=== PATIENT | male | born 1955 | race African-American/Black ===

== ENCOUNTER 2016-08-20 08:32 | Emergency (ER) | payer MEDICAID ==
[~2016-08-20] VITALS: Ht 160 cm; Wt 68.0 kg
[2016-08-20 10:05] VITALS: BP 146/56
[2016-08-20] MEDS: ONDANSETRON HCL 4 MG/2 ML VIAL IM ONE (10:40)
[2016-08-20] MEDS: HYDROmorphone HCL 2 MG/ML VL IM ONE (10:40)
[2016-08-20] MEDS: cefTRIAXone SOD 1,000 MG VL IM ONE (10:40)
== END 2016-08-20 10:56 | disposition home or self-care (01) ==
LOC: ER 08:32
DX: L02.212 Cutaneous abscess of back [any part, except buttock and flank] (principal); E11.9 Type 2 diabetes mellitus without complications; Z79.4 Long term (current) use of insulin; I10 Essential (primary) hypertension
CPT/HCPCS: 10060; 82962; 87077; 87186; 87205; 96372; 99284; J0696; J1170; J2405

== ENCOUNTER 2016-08-22 08:04 | Emergency (ER) | payer MEDICAID ==
[~2016-08-22] VITALS: Ht 160 cm; Wt 68.0 kg
[2016-08-22 08:14] VITALS: BP 135/60
== END 2016-08-22 09:58 | disposition home or self-care (01) ==
LOC: ER 08:06
DX: L02.31 Cutaneous abscess of buttock (principal); Z48.01 Encounter for change or removal of surgical wound dressing; E11.9 Type 2 diabetes mellitus without complications; I10 Essential (primary) hypertension

== ENCOUNTER 2017-01-17 20:15 | Emergency (ER) | payer MEDICAID, OTHER ==
[~2017-01-17] VITALS: Ht 160 cm; Wt 67.1 kg
[~2017-01-17 20:15] MED LIST: ASPI81CH43 PO; ATOR20TA50 PO; CAR3125T PO; HYDR-2652 PO; INSLANTI SC; ISOS30TA4 PO; LOSA50TA6 PO; TERA2CAP45 PO
[2017-01-17 20:26] VITALS: BP 167/79
[2017-01-17 21:19] LABS: Basophils # (auto) 0 uL; Basophils % (auto) 0.5 % (0.0-2.0); CONDITION Y; Eosinophils # (auto) 0.1 uL; Eosinophils % (auto) 1.2 % (0.0-7.0); Hematocrit 28.1 % (41.0-53.0); Hemoglobin 9.9 g/dL (13.5-17.5); Lymphocytes # (auto) 1.1 uL; Lymphocytes % (auto) 16.3 % (10.0-50.0); Mean Corpuscular Hemoglobin 32.9 pg (28.0-32.0); Mean Corpuscular Hgb Conc. 35.2 g/dL (32.0-36.0); Mean Corpuscular Volume 93.6 fL (80.0-100.0); Mean Platelet Volume 9.2 fL (7.4-10.4); Monocytes # (auto) 0.6 uL; Monocytes % (auto) 8.4 % (0.0-12.0); Neutrophils # (auto) 4.9 uL; Neutrophils % (auto) 73.6 % (37.0-80.0); Platelet Count (auto) 223 10^3/uL (140-450); Red Cell Distribution Width 13.7 % (11.6-16.0); White Blood Cell 6.6 10^3/uL (4.4-10.8)
[2017-01-17 21:23] LABS: Partial Thromboplastin Time 32.9 sec (22.64-33.71); Prothrombin Time 10.9 sec (9.37-12.3)
[2017-01-17 21:33] LABS: Albumin 1.5 g/dL (3.4-5.0); Bilirubin, Total 0.2 mg/dL (0.2-1.0); Calcium 6.1 mg/dL (8.5-10.1); Potassium 3.7 mmol/L (3.5-5.1); Total Protein 5.1 g/dL (6.4-8.2)
== END 2017-01-18 00:33 | disposition left against medical advice (07) ==
LOC: ER 20:18
DX: I10 Essential (primary) hypertension (principal); Z53.21 Procedure and treatment not carried out due to patient leaving prior to being seen by health care provider
CPT/HCPCS: 36415; 71020; 80053; 84484; 85025; 85610; 85730; 93005

== ENCOUNTER 2017-01-20 16:04 | Emergency (ER) | payer OTHER ==
[~2017-01-20] VITALS: Ht 160 cm; Wt 63.5 kg
[2017-01-20 16:22] VITALS: BP 147/70
== END 2017-01-20 20:00 | disposition left against medical advice (07) ==
LOC: ER 16:16
DX: T83.098A Other mechanical complication of other urinary catheter, initial encounter (principal); Z53.21 Procedure and treatment not carried out due to patient leaving prior to being seen by health care provider

== ENCOUNTER 2017-07-10 14:17 | Emergency (ER) | payer MEDICARE, MEDICAID ==
[~2017-07-10] VITALS: Ht 160 cm; Wt 67.1 kg
[~2017-07-10 14:17] MED LIST changes: -HYDR-2652 PO; +HYDR50TA15 PO
[2017-07-10 14:42] VITALS: BP 156/70
[2017-07-10] MEDS ORDERED: TETRACAINE HCL 0.5% OPTH(EYE) SOLN 4ML EACHEYE ONE (16:30)
[2017-07-10] MEDS ORDERED: FLUORESCEIN SOD 1 MG TEST STRIP OP ONE (16:30)
== END 2017-07-10 16:49 | disposition home or self-care (01) ==
LOC: ER 14:17
DX: H11.31 Conjunctival hemorrhage, right eye (principal); H53.8 Other visual disturbances; E11.9 Type 2 diabetes mellitus without complications; I12.0 Hypertensive chronic kidney disease with stage 5 chronic kidney disease or end stage renal disease; N18.6 End stage renal disease; Z79.2 Long term (current) use of antibiotics; Z79.4 Long term (current) use of insulin; Z79.899 Other long term (current) drug therapy
CPT/HCPCS: 70450; 82962

== ENCOUNTER 2017-09-08 18:45 | Inpatient (IN) | payer MEDICARE, MEDICAID ==
[~2017-09-08] VITALS: Ht 160 cm; Wt 69.2 kg
[2017-09-08 19:23] LABS: Basophils # (auto) 0.1 uL; Basophils % (auto) 0.9 % (0.0-2.0); Eosinophils # (auto) 0.1 uL; Eosinophils % (auto) 0.8 % (0.0-7.0); Hematocrit 34.4 % (41.0-53.0); Hemoglobin 11.5 g/dL (13.5-17.5); Lymphocytes # (auto) 1.4 uL; Lymphocytes % (auto) 20.4 % (10.0-50.0); Mean Corpuscular Hemoglobin 32.8 pg (28.0-32.0); Mean Corpuscular Hgb Conc. 33.3 g/dL (32.0-36.0); Mean Corpuscular Volume 98.4 fL (80.0-100.0); Monocytes # (auto) 0.5 uL; Monocytes % (auto) 8.1 % (0.0-12.0); Neutrophils # (auto) 4.7 uL; Neutrophils % (auto) 69.8 % (37.0-80.0); Nucleated Red Blood Cells % 0.1 %; Platelet Count (auto) 246 10^3/uL (140-450); Red Cell Distribution Width 14.3 % (11.8-14.3); White Blood Cell 6.7 10^3/uL (4.4-10.8)
[2017-09-08 19:36] LABS: Albumin 2.4 g/dL (3.4-5.0); BUN/Creatinine Ratio 6.9; Calcium 6.4 mg/dL (8.5-10.1); Magnesium 2.1 mg/dL (1.6-2.6); Potassium 4.4 mmol/L (3.5-5.1)
[2017-09-08 19:37] LABS: Partial Thromboplastin Time 30.4 sec (22.64-33.71); Prothrombin Time 10.9 sec (9.37-12.3)
[2017-09-08 19:41] LABS: Bilirubin, Total 0.3 mg/dL (0.2-1.0); Total Protein 6.2 g/dL (6.4-8.2)
[2017-09-08 21:37] LABS: Urine Bacteria NONE SEEN /hpf (None Seen); Urine Blood TRACE /uL (Negative); Urine Specific Gravity 1.016 (1.001-1.035); Urine Sperm PRESENT /hpf (None Seen); Urine WBC 2 /hpf (0 - 3)
[2017-09-09] MEDS ORDERED: NITROGLYCERIN 0.4 MG SL TAB SL PRN (01:30)
[2017-09-09] MEDS ORDERED: MORPHINE SULFATE 4 MG/ML SYR/VIAL IV PRN (01:30)
[2017-09-09] MEDS ORDERED: hydrALAZINE HCL 25 MG TAB PO PRN (01:30)
[2017-09-09] MEDS ORDERED: ONDANSETRON HCL 4 MG/2 ML VIAL IV PRN (01:30)
[2017-09-09 03:10] VITALS: BP 192/90
[2017-09-09] MEDS: HYDROcodone-ACET 5/325MG TAB PO PRN ×2 (04:37→11:25)
[2017-09-09 07:51] LABS: Basophils # (auto) 0.1 uL; Basophils % (auto) 0.9 % (0.0-2.0); Eosinophils # (auto) 0.1 uL; Eosinophils % (auto) 0.9 % (0.0-7.0); Hematocrit 31.2 % (41.0-53.0); Hemoglobin 10.6 g/dL (13.5-17.5); Lymphocytes # (auto) 1.6 uL; Lymphocytes % (auto) 25.1 % (10.0-50.0); Mean Corpuscular Hemoglobin 33.3 pg (28.0-32.0); Mean Corpuscular Hgb Conc. 33.9 g/dL (32.0-36.0); Mean Corpuscular Volume 98.3 fL (80.0-100.0); Monocytes # (auto) 0.6 uL; Monocytes % (auto) 9.4 % (0.0-12.0); Neutrophils % (auto) 63.7 % (37.0-80.0); Nucleated Red Blood Cells % 0.1 %; Platelet Count (auto) 217 10^3/uL (140-450); Red Blood Cells 3.17 10^6/uL (4.5-5.90); Red Cell Distribution Width 14.3 % (11.8-14.3); White Blood Cell 6.2 10^3/uL (4.4-10.8)
[2017-09-09 08:08] LABS: BUN/Creatinine Ratio 6.5; Calcium 6.3 mg/dL (8.5-10.1); Potassium 4.6 mmol/L (3.5-5.1)
[2017-09-09 09:00] VITALS: BP 111/59
[2017-09-09] MEDS: ASPirin-EC 81 mg tab PO SCH (09:23)
[2017-09-09] MEDS: SEVELAMER 800 MG TAB PO SCH ×3 (09:23→17:59)
[2017-09-09] MEDS: ISOSORBIDE MONONITRATE 60 MG TAB PO SCH (09:24)
[2017-09-09] MEDS: CARVEDILOL 3.125 MG TAB PO SCH ×2 (09:24→22:26)
[2017-09-09] MEDS ORDERED: SODIUM CHL 0.9% 1000 ML BAG XX ONE (11:15)
[2017-09-09] MEDS ORDERED: EPOETIN ALFA 10,000 UNIT/1 ML VIAL IV ONE (11:15)
[2017-09-09 13:00] VITALS: BP 146/72
[2017-09-09 17:01] VITALS: BP 138/73
[2017-09-09] MEDS: MULTIPLE VITAMIN TAB PO SCH (17:59)
[2017-09-09 22:00] VITALS: BP 151/74
[2017-09-09] MEDS: ATORVASTATIN 20 MG TAB PO SCH (22:25)
[2017-09-10] MEDS: HYDROcodone-ACET 5/325MG TAB PO PRN (01:07)
[2017-09-10 05:00] VITALS: BP 142/73
[2017-09-10 06:41] LABS: Basophils # (auto) 0.1 uL; Basophils % (auto) 0.6 % (0.0-2.0); Eosinophils # (auto) 0.1 uL; Eosinophils % (auto) 1.1 % (0.0-7.0); Hematocrit 35.3 % (41.0-53.0); Hemoglobin 11.8 g/dL (13.5-17.5); Lymphocytes # (auto) 1.7 uL; Lymphocytes % (auto) 18.9 % (10.0-50.0); Mean Corpuscular Hemoglobin 33.5 pg (28.0-32.0); Mean Corpuscular Hgb Conc. 33.4 g/dL (32.0-36.0); Mean Corpuscular Volume 100.4 fL (80.0-100.0); Monocytes # (auto) 0.8 uL; Monocytes % (auto) 8.8 % (0.0-12.0); Neutrophils # (auto) 6.2 uL; Neutrophils % (auto) 70.6 % (37.0-80.0); Nucleated Red Blood Cells % 0.1 %; Platelet Count (auto) 253 10^3/uL (140-450); Red Blood Cells 3.51 10^6/uL (4.5-5.90); Red Cell Distribution Width 14.9 % (11.8-14.3); White Blood Cell 8.8 10^3/uL (4.4-10.8)
[2017-09-10 06:48] LABS: BUN/Creatinine Ratio 6.4; Calcium 6.7 mg/dL (8.5-10.1); Phosphorus 7.3 mg/dL (2.5-4.90); Potassium 5.2 mmol/L (3.5-5.1)
[2017-09-10] MEDS: ISOSORBIDE MONONITRATE 60 MG TAB PO SCH (08:55)
[2017-09-10] MEDS: ASPirin-EC 81 mg tab PO SCH (08:55)
[2017-09-10] MEDS: CARVEDILOL 3.125 MG TAB PO SCH ×2 (08:56→23:12)
[2017-09-10] MEDS: SEVELAMER 800 MG TAB PO SCH ×3 (08:56→17:36)
[2017-09-10 09:00] VITALS: BP 191/80
[2017-09-10] MEDS ORDERED: EPOETIN ALFA 10,000 UNIT/1 ML VIAL IV ONE (11:00)
[2017-09-10] MEDS ORDERED: SODIUM CHL 0.9% 1000 ML BAG XX ONE (11:00)
[2017-09-10 13:00] VITALS: BP 153/77
[2017-09-10] MEDS ORDERED: HEPARIN 1,000 UNITS/ml 1ML VIAL IV ONE ×2 (16:45)
[2017-09-10 17:00] VITALS: BP 183/81
[2017-09-10] MEDS: MULTIPLE VITAMIN TAB PO SCH (17:36)
[2017-09-10 22:00] VITALS: BP 147/71
[2017-09-10] MEDS: ATORVASTATIN 20 MG TAB PO SCH (23:11)
[2017-09-10] MEDS: cloNIDine HCL 0.1 MG TAB PO PRN (23:11)
[2017-09-11] MEDS: ACETAMINOPHEN 500 MG TAB PO PRN ×2 (01:46→21:43)
[2017-09-11 05:33] VITALS: BP 126/72
[2017-09-11 05:57] LABS: Basophils # (auto) 0.1 uL; Eosinophils # (auto) 0 uL; Eosinophils % (auto) 0.5 % (0.0-7.0); Hematocrit 30.4 % (41.0-53.0); Hemoglobin 10.3 g/dL (13.5-17.5); Lymphocytes # (auto) 1.8 uL; Lymphocytes % (auto) 25.3 % (10.0-50.0); Mean Corpuscular Hemoglobin 33.3 pg (28.0-32.0); Mean Corpuscular Hgb Conc. 33.9 g/dL (32.0-36.0); Mean Corpuscular Volume 98.3 fL (80.0-100.0); Monocytes # (auto) 0.6 uL; Monocytes % (auto) 8.1 % (0.0-12.0); Neutrophils # (auto) 4.6 uL; Neutrophils % (auto) 65.1 % (37.0-80.0); Nucleated Red Blood Cells % 0.2 %; Platelet Count (auto) 216 10^3/uL (140-450); Red Cell Distribution Width 14.2 % (11.8-14.3); White Blood Cell 7.1 10^3/uL (4.4-10.8)
[2017-09-11] MEDS: hydrALAZINE HCL 25 MG TAB PO SCH ×3 (06:00→22:00)
[2017-09-11 06:08] LABS: Calcium 6.7 mg/dL (8.5-10.1); Potassium 4.5 mmol/L (3.5-5.1)
[2017-09-11 06:10] LABS: BUN/Creatinine Ratio 5.3
[2017-09-11 08:00] VITALS: BP 147/70
[2017-09-11 08:40] VITALS: BP 147/70
[2017-09-11] MEDS: SEVELAMER 800 MG TAB PO SCH ×3 (09:04→16:36)
[2017-09-11] MEDS: CARVEDILOL 3.125 MG TAB PO SCH ×2 (09:05→21:44)
[2017-09-11] MEDS: ASPirin-EC 81 mg tab PO SCH (09:05)
[2017-09-11] MEDS: ISOSORBIDE MONONITRATE 60 MG TAB PO SCH (09:05)
[2017-09-11 11:52] VITALS: BP 131/68
[2017-09-11] MEDS: MULTIPLE VITAMIN TAB PO SCH (16:36)
[2017-09-11 16:37] VITALS: BP 142/63
[2017-09-11 21:38] VITALS: BP 171/56
[2017-09-11] MEDS: cloNIDine HCL 0.1 MG TAB PO PRN (21:43)
[2017-09-11] MEDS: ATORVASTATIN 20 MG TAB PO SCH (21:44)
[2017-09-12 05:00] VITALS: BP 120/59
[2017-09-12] MEDS: hydrALAZINE HCL 25 MG TAB PO SCH ×2 (05:42→14:00)
[2017-09-12 07:05] LABS: Basophils # (auto) 0.1 uL; Basophils % (auto) 0.9 % (0.0-2.0); Eosinophils # (auto) 0.1 uL; Hematocrit 31.9 % (41.0-53.0); Hemoglobin 10.7 g/dL (13.5-17.5); Lymphocytes % (auto) 26.4 % (10.0-50.0); Mean Corpuscular Hgb Conc. 33.5 g/dL (32.0-36.0); Mean Corpuscular Volume 98.6 fL (80.0-100.0); Monocytes # (auto) 0.7 uL; Neutrophils # (auto) 4.6 uL; Neutrophils % (auto) 61.7 % (37.0-80.0); Nucleated Red Blood Cells % 0.1 %; Platelet Count (auto) 220 10^3/uL (140-450); Red Blood Cells 3.24 10^6/uL (4.5-5.90); Red Cell Distribution Width 14.2 % (11.8-14.3); White Blood Cell 7.5 10^3/uL (4.4-10.8)
[2017-09-12 07:32] LABS: BUN/Creatinine Ratio 6.2; Calcium 6.6 mg/dL (8.5-10.1)
[2017-09-12 08:00] VITALS: BP 120/59
[2017-09-12] MEDS: SEVELAMER 800 MG TAB PO SCH ×2 (08:00→12:00)
[2017-09-12] MEDS ORDERED: SODIUM CHL 0.9% 1000 ML BAG XX ONE (08:45)
[2017-09-12 08:57] VITALS: BP 100/54
[2017-09-12] MEDS: ISOSORBIDE MONONITRATE 60 MG TAB PO SCH (10:00)
[2017-09-12] MEDS: CARVEDILOL 3.125 MG TAB PO SCH (10:00)
[2017-09-12] MEDS: ASPirin-EC 81 mg tab PO SCH (10:00)
[2017-09-12 12:40] VITALS: BP 135/62
[2017-09-12 14:32] VITALS: BP 135/62
[2017-09-12] MEDS ORDERED: PRO-STAT 64 30ML PO SCH (22:00)
== END 2017-09-12 16:42 | disposition home or self-care (01) | DRG 280 ==
LOC: EDBD 18:45 → ER 18:46 → TELE 18:47 → TELE-WESTW 09-09 03:05
PROVIDERS: ADMIT Nurse Practitioner Family; ATTEND Family Medicine
PROC: 5A1D70Z Performance of Urinary Filtration, Intermittent, Less than 6 Hours Per Day (ICD-10-PCS; principal; 2017-09-10)
PROC: 5A1D70Z Performance of Urinary Filtration, Intermittent, Less than 6 Hours Per Day (ICD-10-PCS; 2017-09-12)
DX: I13.2 Hypertensive heart and chronic kidney disease with heart failure and with stage 5 chronic kidney disease, or end stage renal disease (principal); I21.A1 Myocardial infarction type 2; N18.6 End stage renal disease; E11.22 Type 2 diabetes mellitus with diabetic chronic kidney disease; E44.0 Moderate protein-calorie malnutrition; I50.30 Unspecified diastolic (congestive) heart failure; E11.65 Type 2 diabetes mellitus with hyperglycemia; I12.0 Hypertensive chronic kidney disease with stage 5 chronic kidney disease or end stage renal disease; D63.8 Anemia in other chronic diseases classified elsewhere; E78.5 Hyperlipidemia, unspecified; F41.9 Anxiety disorder, unspecified; I25.10 Atherosclerotic heart disease of native coronary artery without angina pectoris; Z99.2 Dependence on renal dialysis; Z79.4 Long term (current) use of insulin; Z79.82 Long term (current) use of aspirin; Z79.899 Other long term (current) drug therapy; Z82.49 Family history of ischemic heart disease and other diseases of the circulatory system; Z83.3 Family history of diabetes mellitus; Z68.27 Body mass index [BMI] 27.0-27.9, adult
CPT/HCPCS: 36415; 71045; 80048; 80053; 81001; 82550; 82553; 82962; 83036; 83540; 83735; 83880; 84100; 84484; 85025; 85379; 85610; 85730; 90935; 93005; 93306; J0885

== ENCOUNTER → 2017-11-04 | Outpatient (CLI) | payer MEDICARE, MEDICAID ==
[~2017-11-04] MED LIST changes: -HYDR50TA15 PO; -LOSA50TA6 PO; -TERA2CAP45 PO
[2017-11-04 08:04] LABS: Basophils # (auto) 0.1 uL; Basophils % (auto) 0.9 % (0.0-2.0); Eosinophils # (auto) 0.1 uL; Eosinophils % (auto) 0.9 % (0.0-7.0); Hematocrit 36.8 % (41.0-53.0); Hemoglobin 12.1 g/dL (13.5-17.5); Lymphocytes # (auto) 1.4 uL; Lymphocytes % (auto) 24.5 % (10.0-50.0); Mean Corpuscular Hemoglobin 31.4 pg (28.0-32.0); Mean Corpuscular Hgb Conc. 32.9 g/dL (32.0-36.0); Mean Corpuscular Volume 95.5 fL (80.0-100.0); Monocytes # (auto) 0.4 uL; Monocytes % (auto) 7.7 % (0.0-12.0); Neutrophils # (auto) 3.8 uL; Nucleated Red Blood Cells % 0.1 %; Platelet Count (auto) 295 10^3/uL (140-450); Red Blood Cells 3.86 10^6/uL (4.5-5.90); Red Cell Distribution Width 14.3 % (11.8-14.3); White Blood Cell 5.8 10^3/uL (4.4-10.8)
[2017-11-04 08:07] LABS: Urine Bacteria NONE SEEN /hpf (None Seen); Urine Blood Negative /uL (Negative); Urine Hyaline Cast FEW /lpf (0 - 2); Urine Specific Gravity 1.017 (1.001-1.035); Urine WBC 1 /hpf (0 - 3)
[2017-11-04 08:33] LABS: Albumin 2.7 g/dL (3.4-5.0); BUN/Creatinine Ratio 5.4; Bilirubin, Total 0.3 mg/dL (0.2-1.0); Calcium 7.5 mg/dL (8.5-10.1); Potassium 5.3 mmol/L (3.5-5.1); Total Protein 6.9 g/dL (6.4-8.2)
== END | disposition home or self-care (01) ==
LOC: LAB 07:22
PROVIDERS: ATTEND Nurse Practitioner
DX: I12.9 Hypertensive chronic kidney disease with stage 1 through stage 4 chronic kidney disease, or unspecified chronic kidney disease (principal); E11.22 Type 2 diabetes mellitus with diabetic chronic kidney disease; N18.9 Chronic kidney disease, unspecified; E78.5 Hyperlipidemia, unspecified
CPT/HCPCS: 36415; 80053; 80061; 81001; 82043; 83036; 85025

== ENCOUNTER 2017-11-27 08:15 | Emergency (ER) | payer MEDICARE, MEDICAID ==
[~2017-11-27] VITALS: Ht 160 cm; Wt 63.5 kg
[2017-11-27 08:39] VITALS: BP 174/75
== END 2017-11-27 09:14 | disposition home or self-care (01) ==
LOC: ER 08:19
DX: S90.221A Contusion of right lesser toe(s) with damage to nail, initial encounter (principal); I12.0 Hypertensive chronic kidney disease with stage 5 chronic kidney disease or end stage renal disease; E11.22 Type 2 diabetes mellitus with diabetic chronic kidney disease; N18.6 End stage renal disease; I20.9 Angina pectoris, unspecified; E78.5 Hyperlipidemia, unspecified; Z90.49 Acquired absence of other specified parts of digestive tract; X58.XXXA Exposure to other specified factors, initial encounter; Y93.89 Activity, other specified; Y99.8 Other external cause status; Y92.89 Other specified places as the place of occurrence of the external cause
CPT/HCPCS: 73630; 82962

== ENCOUNTER 2017-12-08 22:00 | Inpatient (IN) | payer MEDICARE, MEDICAID ==
[~2017-12-08] VITALS: Ht 160 cm; Wt 64.8 kg
[2017-12-08] MEDS ORDERED: cloNIDine HCL 0.1 MG TAB ONE (22:19)
[2017-12-08] MEDS ORDERED: cloNIDine HCL 0.1 MG TAB PO ONE (22:30)
[2017-12-08 22:40] LABS: Basophils # (auto) 0.1 uL; Basophils % (auto) 1.3 % (0.0-2.0); Eosinophils # (auto) 0.1 uL; Eosinophils % (auto) 1.1 % (0.0-7.0); Hematocrit 32.6 % (41.0-53.0); Lymphocytes # (auto) 1.3 uL; Lymphocytes % (auto) 21.2 % (10.0-50.0); Mean Corpuscular Hemoglobin 31.7 pg (28.0-32.0); Mean Corpuscular Hgb Conc. 33.7 g/dL (32.0-36.0); Monocytes # (auto) 0.4 uL; Monocytes % (auto) 5.8 % (0.0-12.0); Neutrophils # (auto) 4.3 uL; Neutrophils % (auto) 70.6 % (37.0-80.0); Platelet Count (auto) 200 10^3/uL (140-450); Red Blood Cells 3.47 10^6/uL (4.5-5.90); Red Cell Distribution Width 13.9 % (11.8-14.3); White Blood Cell 6.1 10^3/uL (4.4-10.8)
[2017-12-08 22:44] LABS: Urine Bacteria FEW /hpf (None Seen); Urine Blood 1+ /uL (Negative); Urine Specific Gravity 1.017 (1.001-1.035); Urine Sperm PRESENT /hpf (None Seen); Urine WBC 2 /hpf (0 - 3)
[2017-12-08 22:56] LABS: Albumin 2.7 g/dL (3.4-5.0); BUN/Creatinine Ratio 5.9; Calcium 6.7 mg/dL (8.5-10.1); Magnesium 2.2 mg/dL (1.6-2.6); Potassium 4.7 mmol/L (3.5-5.1)
[2017-12-08 23:01] LABS: Bilirubin, Total 0.3 mg/dL (0.2-1.0); Total Protein 6.8 g/dL (6.4-8.2)
[2017-12-08] MEDS: HYDROcodone-ACET 7.5/325MG TAB PO ONE ×2 (23:14→23:31)
[2017-12-08] MEDS ORDERED: MECLIZINE HCL 25 MG TAB PO ONE (23:15)
[2017-12-08] MEDS ORDERED: ENALAPRILAT 1.25 MG/ML-1ML VIAL IV ONE (23:15)
[2017-12-08 23:20] LABS: Prothrombin Time 10.4 sec (9.27-12.13)
[2017-12-08 23:21] LABS: INR 0.97 (0.9-1.15); Partial Thromboplastin Time 26.8 sec (23.78-33.04)
[2017-12-09] MEDS ORDERED: amLODIPine BESYLATE 5 MG TAB PO ONE ×2 (00:30→02:00)
[2017-12-09] MEDS ORDERED: NITROGLYCERIN 0.4MG/HR TOPICAL PATCH TD ONE (02:30)
[2017-12-09] MEDS ORDERED: TEMAZEPAM 15 MG CAP PO PRN (03:15)
[2017-12-09] MEDS ORDERED: NITROGLYCERIN 0.4 MG SL TAB SL PRN (03:15)
[2017-12-09] MEDS ORDERED: ONDANSETRON HCL 4 MG/2 ML VIAL IV PRN (03:15)
[2017-12-09] MEDS ORDERED: cloNIDine HCL 0.1 MG TAB PO PRN (03:15)
[2017-12-09] MEDS ORDERED: MORPHINE SULFATE 8mg/ml INJ SDV IV PRN (03:15)
[2017-12-09] MEDS ORDERED: ACETAMINOPHEN 325 MG TAB PO PRN (03:15)
[2017-12-09] MEDS ORDERED: MECLIZINE HCL 25 MG TAB PO PRN (03:15)
[2017-12-09] MEDS ORDERED: DEXTROSE (50%) 50ML SYRG IV PRN (03:15)
[2017-12-09] MEDS ORDERED: HYDROcodone-ACET 5/325MG TAB PO PRN (03:15)
[2017-12-09] MEDS ORDERED: hydrALAZINE HCL 20 MG/ML VL IV ONE (03:30)
[2017-12-09] MEDS: PANTOPRAZOLE 40 MG TAB PO SCH (05:57)
[2017-12-09] MEDS: InsuLIN REG 1unit/0.01ml Soln (100units/ml) SC SCH ×3 (06:00→17:33)
[2017-12-09] MEDS: ACCU-CHEK COMFORT CURVE STRIP VI SCH ×3 (06:06→17:33)
[2017-12-09 09:11] VITALS: BP_SYST 117; BP_SYST 139; BP_DIAS 62; BP_DIAS 71
[2017-12-09] MEDS ORDERED: CARVEDILOL 3.125 MG TAB PO SCH (10:00)
[2017-12-09] MEDS ORDERED: ISOSORBIDE MONONITRATE 60 MG TAB PO SCH (10:00)
[2017-12-09] MEDS ORDERED: ENOXAPARIN SOD 30 MG/0.3 ML SYRINGE SC SCH (10:00)
[2017-12-09] MEDS: ASPirin 81 mg TAB PO SCH (10:29)
[2017-12-09] MEDS ORDERED: SODIUM CHL 0.9% 1000 ML BAG XX ONE (11:00)
[2017-12-09 11:50] VITALS: BP 142/69
[2017-12-09] MEDS: CLOPIDOGREL BISULFATE 75 MG TAB PO SCH (15:01)
[2017-12-09 16:04] VITALS: BP 167/77
[2017-12-09] MEDS: CARVEDILOL 3.125 MG TAB PO SCH (21:48)
[2017-12-09 22:00] VITALS: BP 155/77
[2017-12-09] MEDS ORDERED: ATORVASTATIN 20 MG TAB PO SCH (22:00)
[2017-12-10 05:00] VITALS: BP 135/58
[2017-12-10 05:46] LABS: Basophils # (auto) 0.1 uL; Basophils % (auto) 1.2 % (0.0-2.0); Eosinophils # (auto) 0.1 uL; Eosinophils % (auto) 2.1 % (0.0-7.0); Hematocrit 30.5 % (41.0-53.0); Hemoglobin 10.3 g/dL (13.5-17.5); Mean Corpuscular Hgb Conc. 33.9 g/dL (32.0-36.0); Mean Corpuscular Volume 94.4 fL (80.0-100.0); Monocytes # (auto) 0.5 uL; Neutrophils % (auto) 52.7 % (37.0-80.0); Nucleated Red Blood Cells % 0.1 %; Platelet Count (auto) 188 10^3/uL (140-450); Red Blood Cells 3.23 10^6/uL (4.5-5.90); Red Cell Distribution Width 13.9 % (11.8-14.3); White Blood Cell 5.6 10^3/uL (4.4-10.8)
[2017-12-10] MEDS: ACCU-CHEK COMFORT CURVE STRIP VI SCH ×2 (06:00)
[2017-12-10] MEDS: InsuLIN REG 1unit/0.01ml Soln (100units/ml) SC SCH ×2 (06:00)
[2017-12-10 06:04] LABS: Albumin 2.5 g/dL (3.4-5.0); BUN/Creatinine Ratio 5.8; Bilirubin, Total 0.4 mg/dL (0.2-1.0); Calcium 6.9 mg/dL (8.5-10.1); Phosphorus 5.7 mg/dL (2.5-4.90); Potassium 5.1 mmol/L (3.5-5.1); Total Protein 5.8 g/dL (6.4-8.2)
[2017-12-10] MEDS: PANTOPRAZOLE 40 MG TAB PO SCH (06:34)
[2017-12-10 08:00] VITALS: BP 184/88
[2017-12-10 09:00] VITALS: BP 184/88
[2017-12-10] MEDS: CLOPIDOGREL BISULFATE 75 MG TAB PO SCH (09:11)
[2017-12-10] MEDS: ASPirin 81 mg TAB PO SCH (09:12)
[2017-12-10] MEDS: CARVEDILOL 3.125 MG TAB PO SCH (09:13)
[2017-12-10] MEDS ORDERED: amLODIPine BESYLATE 5 MG TAB PO SCH (10:00)
[2017-12-10 12:30] VITALS: BP 184/88
[2017-12-10 13:00] VITALS: BP 175/80
== END 2017-12-10 13:25 | disposition home health service (06) | DRG 280 ==
LOC: ER 22:00 → TELE 22:01 → TELE-WESTW 12-09 08:40
PROVIDERS: ADMIT Nurse Practitioner; ATTEND Internal Medicine Pulmonary Disease
PROC: 5A1D70Z Performance of Urinary Filtration, Intermittent, Less than 6 Hours Per Day (ICD-10-PCS; principal; 2017-12-09)
DX: I21.4 Non-ST elevation (NSTEMI) myocardial infarction (principal); N18.6 End stage renal disease; I16.1 Hypertensive emergency; I13.2 Hypertensive heart and chronic kidney disease with heart failure and with stage 5 chronic kidney disease, or end stage renal disease; E44.0 Moderate protein-calorie malnutrition; E11.22 Type 2 diabetes mellitus with diabetic chronic kidney disease; E11.65 Type 2 diabetes mellitus with hyperglycemia; E78.5 Hyperlipidemia, unspecified; I08.0 Rheumatic disorders of both mitral and aortic valves; I25.10 Atherosclerotic heart disease of native coronary artery without angina pectoris; I50.9 Heart failure, unspecified; I25.2 Old myocardial infarction; Z79.4 Long term (current) use of insulin; Z79.82 Long term (current) use of aspirin; Z82.49 Family history of ischemic heart disease and other diseases of the circulatory system; Z83.3 Family history of diabetes mellitus; Z91.19 Patient's noncompliance with other medical treatment and regimen; Z95.5 Presence of coronary angioplasty implant and graft; Z99.2 Dependence on renal dialysis; Z90.49 Acquired absence of other specified parts of digestive tract; Z95.1 Presence of aortocoronary bypass graft; Z79.899 Other long term (current) drug therapy
CPT/HCPCS: 36415; 71045; 80053; 81001; 82962; 83735; 83880; 84100; 84484; 85025; 85610; 85730; 90935; 93005; 96374

== ENCOUNTER 2018-01-04 17:38 | Inpatient (IN) | payer MEDICARE, MEDICAID ==
[~2018-01-04] VITALS: Ht 157.5 cm; Wt 65.0 kg
[2018-01-04 19:30] LABS: Basophils # (auto) 0 uL; Basophils % (auto) 0.7 % (0.0-2.0); Eosinophils # (auto) 0.1 uL; Eosinophils % (auto) 1.7 % (0.0-7.0); Hematocrit 28.4 % (41.0-53.0); Hemoglobin 9.7 g/dL (13.5-17.5); Lymphocytes # (auto) 1.8 uL; Lymphocytes % (auto) 28.2 % (10.0-50.0); Mean Corpuscular Hemoglobin 31.9 pg (28.0-32.0); Mean Corpuscular Hgb Conc. 34.3 g/dL (32.0-36.0); Mean Corpuscular Volume 93.2 fL (80.0-100.0); Monocytes # (auto) 0.5 uL; Monocytes % (auto) 7.6 % (0.0-12.0); Neutrophils # (auto) 3.9 uL; Neutrophils % (auto) 61.8 % (37.0-80.0); Nucleated Red Blood Cells % 0.1 %; Platelet Count (auto) 265 10^3/uL (140-450); Red Blood Cells 3.05 10^6/uL (4.5-5.90); Red Cell Distribution Width 13.8 % (11.8-14.3); White Blood Cell 6.3 10^3/uL (4.4-10.8)
[2018-01-04 20:01] LABS: BUN/Creatinine Ratio 7.5; Bilirubin, Total 0.2 mg/dL (0.2-1.0); Calcium 6.4 mg/dL (8.5-10.1); Magnesium 3.1 mg/dL (1.6-2.6); Total Protein 7.2 g/dL (6.4-8.2)
[2018-01-04 20:05] LABS: Potassium 6.8 mmol/L (3.5-5.1)
[2018-01-04] MEDS ORDERED: InsuLIN REG 1unit/0.01ml Soln (100units/ml) IV ONE (21:00)
[2018-01-04] MEDS ORDERED: DEXTROSE (50%) 50ML SYRG IV ONE (21:00)
[2018-01-04] MEDS ORDERED: ASPirin-EC 81 mg tab PO ONE (21:00)
[2018-01-04] MEDS ORDERED: ONDANSETRON HCL 4 MG/2 ML VIAL IM ONE (22:00)
[2018-01-04] MEDS ORDERED: MORPHINE SULF INJ 2 MG/ML SYRINGE 1ML IV ONE (22:00)
[2018-01-04] MEDS ORDERED: ACETAMINOPHEN 325 MG TAB PO PRN (22:15)
[2018-01-04] MEDS ORDERED: DEXTROSE (50%) 50ML SYRG IV PRN (22:15)
[2018-01-04] MEDS ORDERED: TEMAZEPAM 15 MG CAP PO PRN (22:15)
[2018-01-04] MEDS ORDERED: NITROGLYCERIN 0.4 MG SL TAB SL PRN (22:15)
[2018-01-04] MEDS ORDERED: ONDANSETRON HCL 4 MG/2 ML VIAL IV PRN (22:15)
[2018-01-04] MEDS ORDERED: MORPHINE SULF INJ 2 MG/ML SYRINGE 1ML IV PRN (22:15)
[2018-01-04] MEDS ORDERED: MORPHINE SULFATE 4 MG/ML SYR/VIAL ONE (22:22)
[2018-01-05] MEDS ORDERED: DEXTROSE (50%) 50ML SYRG IV ONE ×2 (00:15→11:30)
[2018-01-05] MEDS ORDERED: SODIUM BICARBONATE 8.4 % INJ 50ML VIAL IV ONE (00:15)
[2018-01-05] MEDS ORDERED: InsuLIN REG 1unit/0.01ml Soln (100units/ml) IV ONE ×2 (00:15→11:30)
[2018-01-05] MEDS ORDERED: SODIUM POLYSTYRENE SULF 15GM/60ML SUSP PO ONE ×2 (00:15→10:45)
[2018-01-05] MEDS ORDERED: CALCIUM GLUC 4.65meq/50ml D5AE 50 ML IV ONE ×2 (00:15→00:28)
[2018-01-05] MEDS: ACCU-CHEK COMFORT CURVE STRIP VI SCH ×4 (00:17→17:16)
[2018-01-05] MEDS ORDERED: SODIUM BICARBONATE 8.4% INJ 50ML SYRINGE ONE (00:27)
[2018-01-05 01:55] VITALS: BP 150/75
[2018-01-05 02:02] LABS: Albumin 2.7 g/dL (3.4-5.0); BUN/Creatinine Ratio 8.2; Bilirubin, Total 0.3 mg/dL (0.2-1.0); Calcium 6.1 mg/dL (8.5-10.1); Total Protein 6.4 g/dL (6.4-8.2)
[2018-01-05 02:45] LABS: Potassium 6.1 mmol/L (3.5-5.1)
[2018-01-05 03:58] LABS: Basophils # (auto) 0 uL; Basophils % (auto) 0.4 % (0.0-2.0); Eosinophils # (auto) 0.1 uL; Eosinophils % (auto) 0.5 % (0.0-7.0); Hematocrit 29.4 % (41.0-53.0); Hemoglobin 9.7 g/dL (13.5-17.5); Lymphocytes # (auto) 1.3 uL; Lymphocytes % (auto) 10.7 % (10.0-50.0); Mean Corpuscular Hemoglobin 31.1 pg (28.0-32.0); Mean Corpuscular Hgb Conc. 33.1 g/dL (32.0-36.0); Monocytes # (auto) 0.8 uL; Monocytes % (auto) 6.9 % (0.0-12.0); Neutrophils # (auto) 9.5 uL; Neutrophils % (auto) 81.5 % (37.0-80.0); Platelet Count (auto) 251 10^3/uL (140-450); Red Blood Cells 3.13 10^6/uL (4.5-5.90); Red Cell Distribution Width 13.6 % (11.8-14.3); White Blood Cell 11.7 10^3/uL (4.4-10.8)
[2018-01-05 05:00] VITALS: BP 129/54
[2018-01-05] MEDS: InsuLIN REG 1unit/0.01ml Soln (100units/ml) SC SCH ×4 (06:00→17:16)
[2018-01-05] MEDS: PANTOPRAZOLE 40 MG TAB PO SCH (06:23)
[2018-01-05 08:14] VITALS: BP 149/75
[2018-01-05] MEDS: CARVEDILOL 3.125 MG TAB PO SCH ×2 (09:42→22:06)
[2018-01-05] MEDS: ISOSORBIDE MONONITRATE 60 MG TAB PO SCH (09:43)
[2018-01-05] MEDS: ASPirin 81 mg TAB PO SCH (09:43)
[2018-01-05] MEDS ORDERED: SODIUM CHL 0.9% 1000 ML BAG XX ONE (11:00)
[2018-01-05] MEDS ORDERED: EPOETIN ALFA 10,000 UNIT/1 ML VIAL IV ONE (11:00)
[2018-01-05] MEDS ORDERED: ALBUTEROL SULF 2.5 MG/0.5ML(0.5%) NEB SOLN NEB ONE (11:30)
[2018-01-05] MEDS: Glucerna Carbsteady SHAKE Vanilla 8oz PO SCH ×2 (12:00→18:00)
[2018-01-05 12:23] VITALS: BP 187/89
[2018-01-05] MEDS ORDERED: CLOPIDOGREL 300 MG TAB PO ONE (13:00)
[2018-01-05 17:22] VITALS: BP 144/75
[2018-01-05 22:00] VITALS: BP 156/79
[2018-01-05] MEDS ORDERED: ATORVASTATIN 20 MG TAB PO SCH (22:00)
[2018-01-06] VITALS (7 sets, daily range): BP systolic 115–197; BP diastolic 67–82
[2018-01-06] MEDS: HYDROcodone-ACET 5/325MG TAB PO PRN ×2 (01:08→12:49)
[2018-01-06] MEDS: ACCU-CHEK COMFORT CURVE STRIP VI SCH ×4 (02:26→18:11)
[2018-01-06] MEDS: InsuLIN REG 1unit/0.01ml Soln (100units/ml) SC SCH ×4 (06:00→18:00)
[2018-01-06] MEDS: PANTOPRAZOLE 40 MG TAB PO SCH (06:00)
[2018-01-06 06:43] LABS: INR 1.03 (0.9-1.15); Partial Thromboplastin Time 28.7 sec (23.78-33.04)
[2018-01-06 06:49] LABS: Basophils # (auto) 0.1 uL; Basophils % (auto) 0.8 % (0.0-2.0); Eosinophils # (auto) 0.2 uL; Eosinophils % (auto) 1.9 % (0.0-7.0); Hematocrit 28.4 % (41.0-53.0); Hemoglobin 9.8 g/dL (13.5-17.5); Lymphocytes # (auto) 1.3 uL; Mean Corpuscular Hemoglobin 32.1 pg (28.0-32.0); Mean Corpuscular Hgb Conc. 34.3 g/dL (32.0-36.0); Mean Corpuscular Volume 93.5 fL (80.0-100.0); Monocytes # (auto) 0.7 uL; Neutrophils # (auto) 5.5 uL; Neutrophils % (auto) 71.3 % (37.0-80.0); Platelet Count (auto) 253 10^3/uL (140-450); Red Blood Cells 3.04 10^6/uL (4.5-5.90); Red Cell Distribution Width 13.6 % (11.8-14.3); White Blood Cell 7.8 10^3/uL (4.4-10.8)
[2018-01-06 07:14] LABS: Albumin 2.6 g/dL (3.4-5.0); Bilirubin, Total 0.4 mg/dL (0.2-1.0); Calcium 6.6 mg/dL (8.5-10.1); Total Protein 6.6 g/dL (6.4-8.2)
[2018-01-06 07:41] LABS: Potassium 5.7 mmol/L (3.5-5.1)
[2018-01-06] MEDS: Glucerna Carbsteady SHAKE Vanilla 8oz PO SCH ×3 (08:00→18:11)
[2018-01-06] MEDS ORDERED: DEXTROSE (50%) 50ML SYRG IV ONE (08:00)
[2018-01-06] MEDS ORDERED: InsuLIN REG 1unit/0.01ml Soln (100units/ml) SC ONE (08:00)
[2018-01-06] MEDS ORDERED: MIDAZOLAM HCL 1MG/1ML-2 ML VIAL ONE (08:05)
[2018-01-06] MEDS ORDERED: ANGIOMAX 250 MG VIAL IV ONE (08:05)
[2018-01-06] MEDS ORDERED: SODIUM CHL 0.9% 50 ML ONE (08:05)
[2018-01-06] MEDS ORDERED: fentaNYL CITRATE 100 MCG/2 ML VL ONE (08:05)
[2018-01-06] MEDS ORDERED: InsuLIN REG 1unit/0.01ml Soln (100units/ml) ONE (08:06)
[2018-01-06] MEDS ORDERED: BUPIVACAINE 0.5% P/F INJ 10 ML VIAL ONE (08:14)
[2018-01-06] MEDS ORDERED: ADENOSINE 90 MG/30 ML INJ IV ONE (09:30)
[2018-01-06] MEDS: ASPirin 81 mg TAB PO SCH (10:00)
[2018-01-06] MEDS ORDERED: CLOPIDOGREL BISULFATE 75 MG TAB PO SCH (10:00)
[2018-01-06] MEDS ORDERED: CLOPIDOGREL BISULFATE 75 MG TAB ONE (10:06)
[2018-01-06] MEDS ORDERED: ASPirin 325 MG TAB ONE (10:06)
[2018-01-06] MEDS ORDERED: DEXTROSE 50% SYRINGE 50 ML IV ONE (10:27)
[2018-01-06] MEDS: DEXTROSE (50%) 50ML SYRG IV ONE ×2 (10:56→10:59)
[2018-01-06] MEDS: ISOSORBIDE MONONITRATE 60 MG TAB PO SCH (12:54)
[2018-01-06] MEDS: CARVEDILOL 3.125 MG TAB PO SCH (12:55)
[2018-01-06] MEDS ORDERED: SODIUM POLYSTYRENE SULF 15GM/60ML SUSP PO ONE (14:30)
== END 2018-01-06 19:33 | disposition home or self-care (01) | DRG 246 ==
LOC: ER 17:38 → TELE 17:39 → TELE-WESTW 23:05 → UNDODISIN 01-06 11:28
PROVIDERS: ADMIT Nurse Practitioner; ATTEND Internal Medicine
PROC: 5A1D70Z Performance of Urinary Filtration, Intermittent, Less than 6 Hours Per Day (ICD-10-PCS; 2018-01-05)
PROC: 027034Z Dilation of Coronary Artery, One Artery with Drug-eluting Intraluminal Device, Percutaneous Approach (ICD-10-PCS; principal; 2018-01-06)
PROC: 4A023N7 Measurement of Cardiac Sampling and Pressure, Left Heart, Percutaneous Approach (ICD-10-PCS; 2018-01-06)
PROC: B2111ZZ Fluoroscopy of Multiple Coronary Arteries using Low Osmolar Contrast (ICD-10-PCS; 2018-01-06)
PROC: 4A033BC Measurement of Arterial Pressure, Coronary, Percutaneous Approach (ICD-10-PCS; 2018-01-06)
DX: T82.855A Stenosis of coronary artery stent, initial encounter (principal); N18.6 End stage renal disease; E43 Unspecified severe protein-calorie malnutrition; I50.43 Acute on chronic combined systolic (congestive) and diastolic (congestive) heart failure; I24.9 Acute ischemic heart disease, unspecified; I13.2 Hypertensive heart and chronic kidney disease with heart failure and with stage 5 chronic kidney disease, or end stage renal disease; E87.1 Hypo-osmolality and hyponatremia; I31.3 Pericardial effusion (noninflammatory); I25.110 Atherosclerotic heart disease of native coronary artery with unstable angina pectoris; E87.5 Hyperkalemia; D63.8 Anemia in other chronic diseases classified elsewhere; E11.21 Type 2 diabetes mellitus with diabetic nephropathy; E11.22 Type 2 diabetes mellitus with diabetic chronic kidney disease; E11.65 Type 2 diabetes mellitus with hyperglycemia; E78.5 Hyperlipidemia, unspecified; I08.0 Rheumatic disorders of both mitral and aortic valves; J32.9 Chronic sinusitis, unspecified; Y83.1 Surgical operation with implant of artificial internal device as the cause of abnormal reaction of the patient, or of later complication, without mention of misadventure at the time of the procedure; Z82.49 Family history of ischemic heart disease and other diseases of the circulatory system; Z99.2 Dependence on renal dialysis; Z83.3 Family history of diabetes mellitus; Z68.26 Body mass index [BMI] 26.0-26.9, adult; Z90.49 Acquired absence of other specified parts of digestive tract
CPT/HCPCS: 36415; 36600; 70450; 71046; 80053; 82805; 82962; 83036; 83735; 83880; 84132; 84484; 85025; 85379; 85610; 85730; 87081; 90935; 93005; 94644; 96372; 96374; 96375; 96376; 99152; C1874; J0153; J0610; J0885; J1815; J2250; J2405; J3490

== ENCOUNTER 2018-02-10 10:04 | Inpatient (IN) | payer MEDICARE, MEDICAID ==
[~2018-02-10] VITALS: Ht 160 cm; Wt 62.8 kg
[2018-02-10 10:42] LABS: Basophils # (auto) 0.1 uL; Basophils % (auto) 1.2 % (0.0-2.0); Eosinophils # (auto) 0.1 uL; Eosinophils % (auto) 1.3 % (0.0-7.0); Hematocrit 30.7 % (41.0-53.0); Hemoglobin 10.5 g/dL (13.5-17.5); Lymphocytes # (auto) 1.8 uL; Lymphocytes % (auto) 29.2 % (10.0-50.0); Mean Corpuscular Hemoglobin 32.7 pg (28.0-32.0); Mean Corpuscular Hgb Conc. 34.1 g/dL (32.0-36.0); Mean Corpuscular Volume 95.7 fL (80.0-100.0); Monocytes # (auto) 0.5 uL; Monocytes % (auto) 7.8 % (0.0-12.0); Neutrophils # (auto) 3.7 uL; Neutrophils % (auto) 60.5 % (37.0-80.0); Nucleated Red Blood Cells % 0.1 %; Platelet Count (auto) 215 10^3/uL (140-450); Red Blood Cells 3.21 10^6/uL (4.5-5.90); Red Cell Distribution Width 14.3 % (11.8-14.3); White Blood Cell 6.2 10^3/uL (4.4-10.8)
[2018-02-10 11:08] LABS: Albumin 3.4 g/dL (3.4-5.0); BUN/Creatinine Ratio 5.4; Bilirubin, Total 0.5 mg/dL (0.2-1.0); Calcium 6.7 mg/dL (8.5-10.1); Total Protein 7.5 g/dL (6.4-8.2)
[2018-02-10 11:16] LABS: Potassium 5.9 mmol/L (3.5-5.1)
[2018-02-10] MEDS ORDERED: SODIUM POLYSTYRENE SULF 15GM/60ML SUSP PO ONE (11:30)
[2018-02-10 13:49] LABS: Urine Bacteria FEW /hpf (None Seen); Urine Blood TRACE /uL (Negative); Urine Specific Gravity 1.014 (1.001-1.035); Urine Sperm PRESENT /hpf (None Seen); Urine WBC 3 /hpf (0 - 3)
[2018-02-10] MEDS ORDERED: MORPHINE SULF INJ 2 MG/ML SYRINGE 1ML IV PRN (14:15)
[2018-02-10] MEDS ORDERED: ISOSORBIDE MONONITRATE 60 MG TAB PO ONE (14:15)
[2018-02-10] MEDS ORDERED: LABETALOL HCL 5 MG/ML ML 20ML VIAL IV PRN (14:15)
[2018-02-10] MEDS ORDERED: DEXTROSE (50%) 50ML SYRG IV PRN (14:15)
[2018-02-10] MEDS ORDERED: ONDANSETRON HCL 4 MG/2 ML VIAL IV PRN (14:15)
[2018-02-10] MEDS ORDERED: HYDROcodone-ACET 5/325MG TAB PO PRN (14:15)
[2018-02-10] MEDS ORDERED: NITROGLYCERIN 0.4 MG SL TAB SL PRN (14:15)
[2018-02-10 16:44] VITALS: BP 148/74
[2018-02-10] MEDS: InsuLIN REG 1unit/0.01ml Soln (100units/ml) SC SCH ×2 (17:00→21:38)
[2018-02-10] MEDS: ACCU-CHEK COMFORT CURVE STRIP VI SCH ×2 (17:22→21:38)
[2018-02-10 18:51] LABS: BUN/Creatinine Ratio 5.6; Calcium 6.4 mg/dL (8.5-10.1); Potassium 5.1 mmol/L (3.5-5.1)
[2018-02-10] MEDS: CARVEDILOL 3.125 MG TAB PO SCH (21:37)
[2018-02-10 22:00] VITALS: BP 146/63
[2018-02-10] MEDS ORDERED: ATORVASTATIN 20 MG TAB PO SCH (22:00)
[2018-02-11 04:56] VITALS: BP 138/71
[2018-02-11] MEDS: ACCU-CHEK COMFORT CURVE STRIP VI SCH ×2 (06:13→12:21)
[2018-02-11] MEDS: InsuLIN REG 1unit/0.01ml Soln (100units/ml) SC SCH ×2 (06:14→12:20)
[2018-02-11 07:19] LABS: BUN/Creatinine Ratio 6.1; Calcium 6.6 mg/dL (8.5-10.1); Potassium 5.4 mmol/L (3.5-5.1)
[2018-02-11] MEDS ORDERED: EPOETIN ALFA 10,000 UNIT/1 ML VIAL IV ONE (07:30)
[2018-02-11 09:06] VITALS: BP 160/80
[2018-02-11] MEDS ORDERED: CLOPIDOGREL BISULFATE 75 MG TAB PO SCH (10:00)
[2018-02-11] MEDS ORDERED: ISOSORBIDE MONONITRATE 60 MG TAB PO SCH (10:00)
[2018-02-11] MEDS ORDERED: PANTOPRAZOLE 40 MG TAB PO SCH (10:00)
[2018-02-11] MEDS ORDERED: ASPirin 81 mg TAB PO SCH (10:00)
[2018-02-11] MEDS: CARVEDILOL 3.125 MG TAB PO SCH (10:12)
[2018-02-11 11:13] VITALS: BP 150/72
[2018-02-11 12:34] VITALS: BP 163/78
[2018-02-11 13:42] VITALS: BP 150/72
== END 2018-02-11 13:43 | disposition home or self-care (01) | DRG 640 ==
LOC: ER 10:04 → TELE 10:05 → TELE-CENTR 16:33
PROVIDERS: ADMIT Internal Medicine; ATTEND Internal Medicine
PROC: 5A1D70Z Performance of Urinary Filtration, Intermittent, Less than 6 Hours Per Day (ICD-10-PCS; principal; 2018-02-11)
DX: E87.5 Hyperkalemia (principal); N18.6 End stage renal disease; I12.0 Hypertensive chronic kidney disease with stage 5 chronic kidney disease or end stage renal disease; Z99.2 Dependence on renal dialysis; I25.10 Atherosclerotic heart disease of native coronary artery without angina pectoris; R07.9 Chest pain, unspecified; E83.41 Hypermagnesemia; E78.5 Hyperlipidemia, unspecified; E11.22 Type 2 diabetes mellitus with diabetic chronic kidney disease; D64.9 Anemia, unspecified; E83.51 Hypocalcemia; E87.8 Other disorders of electrolyte and fluid balance, not elsewhere classified; Z82.49 Family history of ischemic heart disease and other diseases of the circulatory system; Z83.3 Family history of diabetes mellitus; Z95.5 Presence of coronary angioplasty implant and graft; Z90.49 Acquired absence of other specified parts of digestive tract
CPT/HCPCS: 36415; 70450; 71045; 80048; 80053; 81001; 82962; 83735; 84484; 85025; 90935; 93005; 94761; 99291; J0885; J1815

== ENCOUNTER 2018-02-14 11:51 | Inpatient (IN) | payer MEDICARE, MEDICAID ==
[~2018-02-14] VITALS: Ht 162.6 cm; Wt 67.1 kg
[2018-02-14 12:37] LABS: Basophils # (auto) 0.1 uL; Basophils % (auto) 0.9 % (0.0-2.0); Eosinophils # (auto) 0 uL; Eosinophils % (auto) 0.7 % (0.0-7.0); Hematocrit 26.8 % (41.0-53.0); Hemoglobin 9.2 g/dL (13.5-17.5); Lymphocytes # (auto) 1.3 uL; Lymphocytes % (auto) 22.6 % (10.0-50.0); Mean Corpuscular Hemoglobin 32.5 pg (28.0-32.0); Mean Corpuscular Hgb Conc. 34.3 g/dL (32.0-36.0); Mean Corpuscular Volume 94.8 fL (80.0-100.0); Monocytes # (auto) 0.5 uL; Monocytes % (auto) 8.5 % (0.0-12.0); Neutrophils # (auto) 3.8 uL; Neutrophils % (auto) 67.3 % (37.0-80.0); Nucleated Red Blood Cells % 0.1 %; Platelet Count (auto) 199 10^3/uL (140-450); Red Blood Cells 2.82 10^6/uL (4.5-5.90); Red Cell Distribution Width 14.1 % (11.8-14.3); White Blood Cell 5.6 10^3/uL (4.4-10.8)
[2018-02-14 12:56] LABS: Albumin 3.1 g/dL (3.4-5.0); BUN/Creatinine Ratio 4.3; Bilirubin, Total 0.4 mg/dL (0.2-1.0); Potassium 4.3 mmol/L (3.5-5.1); Total Protein 6.6 g/dL (6.4-8.2)
[2018-02-14] MEDS ORDERED: ASPirin-EC 81 mg tab PO ONE (16:15)
[2018-02-14] MEDS ORDERED: ONDANSETRON HCL 4 MG/2 ML VIAL IV ONE (16:15)
[2018-02-14] MEDS ORDERED: MORPHINE SULF INJ 2 MG/ML SYRINGE 1ML IV ONE (16:15)
[2018-02-14 16:23] LABS: Magnesium 2.5 mg/dL (1.6-2.6)
[2018-02-14 16:26] LABS: INR 1.05 (0.9-1.15); Partial Thromboplastin Time 27.1 sec (23.78-33.04); Prothrombin Time 11.2 sec (9.27-12.13)
[2018-02-14] MEDS ORDERED: PROMETHAZINE HCL 25 MG/ML 1ML IV PRN (19:00)
[2018-02-14] MEDS ORDERED: HYDROcodone-ACET 5/325MG TAB PO PRN (19:00)
[2018-02-14] MEDS ORDERED: MORPHINE SULF INJ 2 MG/ML SYRINGE 1ML IV PRN ×2 (19:00)
[2018-02-14] MEDS ORDERED: LORazepam 0.5 MG TAB PO PRN (19:00)
[2018-02-14] MEDS ORDERED: NITROGLYCERIN 0.4 MG SL TAB SL PRN (19:00)
[2018-02-14] MEDS ORDERED: ACETAMINOPHEN 500 MG TAB PO PRN (19:00)
[2018-02-14] MEDS ORDERED: DEXTROSE (50%) 50ML SYRG IV PRN (19:00)
[2018-02-14] MEDS ORDERED: TEMAZEPAM 15 MG CAP PO PRN (19:00)
[2018-02-14 19:46] LABS: Amylase 121 U/L (25-115); Lipase 147 U/L (73-393)
[2018-02-14] MEDS ORDERED: hydrALAZINE HCL 10 MG TAB PO STA (20:22)
[2018-02-14 21:05] VITALS: BP 187/76
[2018-02-14] MEDS: SODIUM CHLOR 0.9% PF (SALINE LOCK) 10ML VIAL/SYR IV SCH (21:38)
[2018-02-14] MEDS: CARVEDILOL 3.125 MG TAB PO SCH (21:39)
[2018-02-14] MEDS: ACCU-CHEK COMFORT CURVE STRIP VI SCH (21:39)
[2018-02-14] MEDS: ATORVASTATIN 20 MG TAB PO SCH (21:39)
[2018-02-14] MEDS: InsuLIN REG 1unit/0.01ml Soln (100units/ml) SC SCH (21:46)
[2018-02-14 22:16] VITALS: BP 187/76
[2018-02-15 04:15] LABS: Urine Bacteria FEW /hpf (None Seen); Urine Blood TRACE /uL (Negative); Urine Hyaline Cast FEW /lpf (0 - 2); Urine Sperm PRESENT /hpf (None Seen); Urine WBC 2 /hpf (0 - 3)
[2018-02-15 04:16] LABS: Alcohol, Urine < 3.0 mg/dL (0-5); Amphetamine Screen, Urine NEGATIVE (NEGATIVE); Barbiturate Scree,Urine NEGATIVE (NEGATIVE); Benzodiazephine Screen, Urine NEGATIVE (NEGATIVE); Cannabinoid Screen, Urine NEGATIVE (NEGATIVE); Cocaine Screen, Urine NEGATIVE (NEGATIVE); Opiate Scree,Urine NEGATIVE (NEGATIVE); Phencyclidine Screen, Urine NEGATIVE (NEGATIVE)
[2018-02-15 05:00] VITALS: BP 172/69
[2018-02-15] MEDS ORDERED: hydrALAZINE HCL 10 MG TAB PO ONE (05:00)
[2018-02-15] MEDS: SODIUM CHLOR 0.9% PF (SALINE LOCK) 10ML VIAL/SYR IV SCH ×3 (05:46→21:12)
[2018-02-15] MEDS: INSULIN LANTUS (GLARGINE) 1 /0.01ml (100units/ml) SC SCH (06:32)
[2018-02-15] MEDS: ACCU-CHEK COMFORT CURVE STRIP VI SCH ×4 (06:32→21:12)
[2018-02-15] MEDS: InsuLIN REG 1unit/0.01ml Soln (100units/ml) SC SCH ×4 (06:32→21:12)
[2018-02-15 07:44] LABS: Albumin 2.9 g/dL (3.4-5.0); BUN/Creatinine Ratio 4.4; Bilirubin, Total 0.4 mg/dL (0.2-1.0); Calcium 6.7 mg/dL (8.5-10.1); Potassium 4.7 mmol/L (3.5-5.1); Total Protein 6.4 g/dL (6.4-8.2)
[2018-02-15 09:00] VITALS: BP 148/66
[2018-02-15] MEDS ORDERED: ISOSORBIDE MONONITRATE 60 MG TAB PO SCH (10:00)
[2018-02-15] MEDS: ASPirin 81 mg TAB PO SCH (10:33)
[2018-02-15] MEDS: PANTOPRAZOLE 40 MG TAB PO SCH (10:33)
[2018-02-15] MEDS: CARVEDILOL 3.125 MG TAB PO SCH ×2 (10:34→21:12)
[2018-02-15] MEDS ORDERED: METOCLOPRAMIDE HCL 10 MG TAB PO PRN (11:00)
[2018-02-15 11:10] LABS: Amylase 120 U/L (25-115); Lipase 280 U/L (73-393)
[2018-02-15] MEDS: ATORVASTATIN 20 MG TAB PO SCH (21:12)
[2018-02-15] MEDS: cloNIDine HCL 0.1 MG TAB PO PRN (21:13)
[2018-02-15 22:00] VITALS: BP 195/80
[2018-02-16] VITALS (8 sets, daily range): BP systolic 115–204; BP diastolic 52–79
[2018-02-16] MEDS: SODIUM CHLOR 0.9% PF (SALINE LOCK) 10ML VIAL/SYR IV SCH ×3 (05:56→21:51)
[2018-02-16] MEDS: ACCU-CHEK COMFORT CURVE STRIP VI SCH ×4 (06:13→21:51)
[2018-02-16] MEDS: INSULIN LANTUS (GLARGINE) 1 /0.01ml (100units/ml) SC SCH (06:13)
[2018-02-16] MEDS: InsuLIN REG 1unit/0.01ml Soln (100units/ml) SC SCH ×4 (06:13→21:51)
[2018-02-16 07:09] LABS: Calcium 6.5 mg/dL (8.5-10.1); Phosphorus 7.7 mg/dL (2.5-4.90); Potassium 4.8 mmol/L (3.5-5.1)
[2018-02-16] MEDS ORDERED: EPOETIN ALFA 10,000 UNIT/1 ML VIAL IV ONE (08:45)
[2018-02-16] MEDS ORDERED: SODIUM CHL 0.9% 1000 ML BAG XX ONE (08:45)
[2018-02-16] MEDS: RANOLAZINE ER 500 MG TAB PO SCH (09:58)
[2018-02-16] MEDS: PANTOPRAZOLE 40 MG TAB PO SCH (09:59)
[2018-02-16] MEDS: ASPirin 81 mg TAB PO SCH (09:59)
[2018-02-16] MEDS: CARVEDILOL 3.125 MG TAB PO SCH ×2 (10:00→21:51)
[2018-02-16] MEDS ORDERED: BACLOFEN 10 MG TAB PO ONE (11:15)
[2018-02-16] MEDS ORDERED: ISOSORBIDE MONONITRATE 60 MG TAB PO ONE (11:45)
[2018-02-16] MEDS: FAMOTIDINE 20 MG TAB PO SCH (15:40)
[2018-02-16] MEDS: cloNIDine HCL 0.1 MG TAB PO PRN (17:10)
[2018-02-16] MEDS: ATORVASTATIN 20 MG TAB PO SCH (21:51)
[2018-02-17 05:30] VITALS: BP 140/69
[2018-02-17] MEDS: SODIUM CHLOR 0.9% PF (SALINE LOCK) 10ML VIAL/SYR IV SCH ×3 (05:54→21:51)
[2018-02-17] MEDS: ACCU-CHEK COMFORT CURVE STRIP VI SCH ×4 (06:14→21:52)
[2018-02-17] MEDS: INSULIN LANTUS (GLARGINE) 1 /0.01ml (100units/ml) SC SCH (06:14)
[2018-02-17] MEDS: InsuLIN REG 1unit/0.01ml Soln (100units/ml) SC SCH ×4 (06:14→21:52)
[2018-02-17 06:33] LABS: BUN/Creatinine Ratio 5.2; Calcium 6.9 mg/dL (8.5-10.1)
[2018-02-17 06:35] LABS: Potassium 5.5 mmol/L (3.5-5.1)
[2018-02-17 09:00] VITALS: BP 187/80
[2018-02-17] MEDS: FAMOTIDINE 20 MG TAB PO SCH (09:16)
[2018-02-17] MEDS: ASPirin 81 mg TAB PO SCH (09:16)
[2018-02-17] MEDS: PANTOPRAZOLE 40 MG TAB PO SCH (09:16)
[2018-02-17] MEDS: CARVEDILOL 3.125 MG TAB PO SCH ×2 (09:18→09:25)
[2018-02-17] MEDS ORDERED: ISOSORBIDE MONONITRATE 60 MG TAB PO SCH (10:00)
[2018-02-17] MEDS ORDERED: amLODIPine BESYLATE 5 MG TAB PO ONE (11:00)
[2018-02-17] MEDS ORDERED: ISOSORBIDE MONONITRATE 60 MG TAB PO ONE (11:00)
[2018-02-17] MEDS ORDERED: CLOPIDOGREL BISULFATE 75 MG TAB PO ONE (11:00)
[2018-02-17 12:00] VITALS: BP 186/75
[2018-02-17] MEDS ORDERED: PRA25T PO (12:38)
[2018-02-17] MEDS ORDERED: CALC667C PO (12:38)
[2018-02-17] MEDS ORDERED: ASPI81TA27 PO (12:38)
[2018-02-17] MEDS ORDERED: FURO80TA PO (12:38)
[2018-02-17] MEDS ORDERED: TERA2CAP45 PO (12:38)
[2018-02-17] MEDS ORDERED: ISO20T PO (12:38)
[2018-02-17] MEDS ORDERED: AMLO5TAB2 PO (12:38)
[2018-02-17] MEDS ORDERED: CLOP75TA28 PO (12:38)
[2018-02-17] MEDS ORDERED: SEVE800T8 PO (12:38)
[2018-02-17] MEDS ORDERED: SIMV-8 PO (12:38)
[2018-02-17] MEDS ORDERED: ROSU10TA16 PO (12:39)
[2018-02-17] MEDS: hydrALAZINE HCL 25 MG TAB PO SCH ×2 (14:12→21:51)
[2018-02-17 17:46] VITALS: BP 184/79
[2018-02-17] MEDS: cloNIDine HCL 0.1 MG TAB PO PRN (18:28)
[2018-02-17] MEDS: ATORVASTATIN 20 MG TAB PO SCH (21:51)
[2018-02-17 22:00] VITALS: BP 142/67
[2018-02-18] MEDS: SODIUM CHLOR 0.9% PF (SALINE LOCK) 10ML VIAL/SYR IV SCH ×3 (05:27→22:27)
[2018-02-18] MEDS: hydrALAZINE HCL 25 MG TAB PO SCH ×3 (05:27→22:28)
[2018-02-18 05:30] VITALS: BP 149/71
[2018-02-18] MEDS: ACCU-CHEK COMFORT CURVE STRIP VI SCH ×3 (06:21→17:19)
[2018-02-18] MEDS: InsuLIN REG 1unit/0.01ml Soln (100units/ml) SC SCH ×3 (06:21→17:00)
[2018-02-18] MEDS: INSULIN LANTUS (GLARGINE) 1 /0.01ml (100units/ml) SC SCH (06:21)
[2018-02-18 06:42] LABS: BUN/Creatinine Ratio 5.5; Calcium 6.3 mg/dL (8.5-10.1)
[2018-02-18 06:50] LABS: Potassium 5.6 mmol/L (3.5-5.1)
[2018-02-18] MEDS ORDERED: SODIUM CHL 0.9% 1000 ML BAG XX ONE (08:00)
[2018-02-18] MEDS ORDERED: EPOETIN ALFA 2,000 UNIT/1 ML VIAL IV ONE (08:00)
[2018-02-18] MEDS ORDERED: EPOETIN ALFA 3,000 UNIT/1 ML VIAL IV ONE (08:30)
[2018-02-18 08:57] VITALS: BP 139/69
[2018-02-18] MEDS: amLODIPine BESYLATE 5 MG TAB PO SCH (10:00)
[2018-02-18] MEDS: ISOSORBIDE MONONITRATE 60 MG TAB PO SCH (10:00)
[2018-02-18] MEDS: CARVEDILOL 3.125 MG TAB PO SCH ×2 (10:00→22:28)
[2018-02-18] MEDS ORDERED: MECLIZINE HCL 25 MG TAB PO ONE (11:00)
[2018-02-18] MEDS: ASPirin 81 mg TAB PO SCH (11:17)
[2018-02-18] MEDS: RANOLAZINE ER 500 MG TAB PO SCH (11:17)
[2018-02-18] MEDS: PANTOPRAZOLE 40 MG TAB PO SCH (11:18)
[2018-02-18] MEDS: CLOPIDOGREL BISULFATE 75 MG TAB PO SCH (11:27)
[2018-02-18 12:44] VITALS: BP 161/68
[2018-02-18] MEDS: MECLIZINE HCL 25 MG TAB PO SCH ×2 (14:01→22:26)
[2018-02-18] MEDS ORDERED: SODIUM POLYSTYRENE SULF 15GM/60ML SUSP PO ONE (15:15)
[2018-02-18] MEDS ORDERED: amLODIPine BESYLATE 5 MG TAB PO ONE (15:30)
[2018-02-18] MEDS ORDERED: ISOSORBIDE MONONITRATE 60 MG TAB PO ONE (15:30)
[2018-02-18] MEDS ORDERED: CARVEDILOL 3.125 MG TAB PO ONE (15:30)
[2018-02-18 17:21] VITALS: BP 183/78
[2018-02-18 22:00] VITALS: BP_SYST 165; BP_SYST 178; BP_SYST 183; BP_DIAS 55; BP_DIAS 73; BP_DIAS 77
[2018-02-18] MEDS: ATORVASTATIN 20 MG TAB PO SCH (22:26)
[2018-02-19] MEDS: ACCU-CHEK COMFORT CURVE STRIP VI SCH ×4 (00:03→17:16)
[2018-02-19] MEDS: InsuLIN REG 1unit/0.01ml Soln (100units/ml) SC SCH ×4 (00:04→17:00)
[2018-02-19 05:30] VITALS: BP 131/60
[2018-02-19] MEDS: hydrALAZINE HCL 25 MG TAB PO SCH ×2 (06:00→15:40)
[2018-02-19] MEDS: MECLIZINE HCL 25 MG TAB PO SCH ×2 (06:43→15:39)
[2018-02-19] MEDS: SODIUM CHLOR 0.9% PF (SALINE LOCK) 10ML VIAL/SYR IV SCH ×2 (06:43→14:34)
[2018-02-19] MEDS: INSULIN LANTUS (GLARGINE) 1 /0.01ml (100units/ml) SC SCH (06:43)
[2018-02-19] MEDS ORDERED: SODIUM CHL 0.9% 1000 ML BAG XX ONE (07:00)
[2018-02-19 07:53] LABS: BUN/Creatinine Ratio 5.6; Calcium 6.2 mg/dL (8.5-10.1)
[2018-02-19 08:00] VITALS: BP 184/84
[2018-02-19 09:00] VITALS: BP 168/76
[2018-02-19] MEDS: PANTOPRAZOLE 40 MG TAB PO SCH (10:09)
[2018-02-19] MEDS: ASPirin 81 mg TAB PO SCH (10:09)
[2018-02-19] MEDS: CLOPIDOGREL BISULFATE 75 MG TAB PO SCH (10:09)
[2018-02-19] MEDS: ISOSORBIDE MONONITRATE 60 MG TAB PO SCH (10:09)
[2018-02-19] MEDS: CARVEDILOL 3.125 MG TAB PO SCH (10:10)
[2018-02-19] MEDS: amLODIPine BESYLATE 5 MG TAB PO SCH (10:10)
[2018-02-19 17:00] VITALS: BP 136/51
== END 2018-02-19 19:50 | disposition home or self-care (01) | DRG 280 ==
LOC: ER 11:51 → TELE 11:52 → TELE-CENTR 21:20
PROVIDERS: ADMIT Internal Medicine; ATTEND Internal Medicine
PROC: 5A1D70Z Performance of Urinary Filtration, Intermittent, Less than 6 Hours Per Day (ICD-10-PCS; principal; 2018-02-16)
PROC: 5A1D70Z Performance of Urinary Filtration, Intermittent, Less than 6 Hours Per Day (ICD-10-PCS; 2018-02-19)
DX: I21.4 Non-ST elevation (NSTEMI) myocardial infarction (principal); I50.43 Acute on chronic combined systolic (congestive) and diastolic (congestive) heart failure; N18.6 End stage renal disease; I13.2 Hypertensive heart and chronic kidney disease with heart failure and with stage 5 chronic kidney disease, or end stage renal disease; I25.10 Atherosclerotic heart disease of native coronary artery without angina pectoris; D63.1 Anemia in chronic kidney disease; G89.29 Other chronic pain; E87.5 Hyperkalemia; E11.22 Type 2 diabetes mellitus with diabetic chronic kidney disease; E78.5 Hyperlipidemia, unspecified; Z82.3 Family history of stroke; Z82.49 Family history of ischemic heart disease and other diseases of the circulatory system; Z99.2 Dependence on renal dialysis; Z83.3 Family history of diabetes mellitus; Z95.5 Presence of coronary angioplasty implant and graft; Z90.49 Acquired absence of other specified parts of digestive tract
CPT/HCPCS: 36415; 71045; 74176; 80048; 80053; 80061; 80307; 81001; 82150; 82550; 82962; 83036; 83690; 83735; 83880; 84100; 84443; 84484; 85025; 85379; 85610; 85652; 85730; 86141; 87070; 87081; 87205; 90935; 93005; 96374; 96375; A6257; J0885; J1642; J1815; J2405; Q4081

== ENCOUNTER 2018-02-20 18:42 | Inpatient (IN) | payer MEDICARE, MEDICAID ==
[~2018-02-20] VITALS: Ht 160 cm; Wt 61.5 kg
[~2018-02-20 18:42] MED LIST changes: +AMLO5TAB2 PO; -ASPI81CH43 PO; +ASPI81TA27 PO; -ATOR20TA50 PO; +CALC667C PO; -CAR3125T PO; +CLOP75TA28 PO; +FURO80TA PO; -INSLANTI SC; +ISO20T PO; -ISOS30TA4 PO; +PRA25T PO; +ROSU10TA16 PO; +SEVE800T8 PO; +SIMV-8 PO; +TERA2CAP45 PO
[2018-02-20] MEDS ORDERED: ONDANSETRON HCL 4 MG/2 ML VIAL IV ONE (19:00)
[2018-02-20] MEDS ORDERED: MORPHINE SULFATE 4 MG/ML SYR/VIAL IV ONE (19:00)
[2018-02-20 19:22] LABS: Basophils # (auto) 0.1 uL; Basophils % (auto) 1.3 % (0.0-2.0); Eosinophils # (auto) 0.1 uL; Eosinophils % (auto) 0.9 % (0.0-7.0); Hematocrit 27.4 % (41.0-53.0); Hemoglobin 9.3 g/dL (13.5-17.5); Lymphocytes # (auto) 1.1 uL; Lymphocytes % (auto) 19.3 % (10.0-50.0); Mean Corpuscular Hemoglobin 32.3 pg (28.0-32.0); Monocytes # (auto) 0.6 uL; Monocytes % (auto) 10.1 % (0.0-12.0); Neutrophils # (auto) 3.9 uL; Neutrophils % (auto) 68.4 % (37.0-80.0); Platelet Count (auto) 192 10^3/uL (140-450); Red Blood Cells 2.88 10^6/uL (4.5-5.90); Red Cell Distribution Width 14.4 % (11.8-14.3); White Blood Cell 5.7 10^3/uL (4.4-10.8)
[2018-02-20 19:38] LABS: Albumin 2.8 g/dL (3.4-5.0); BUN/Creatinine Ratio 2.9; Calcium 6.6 mg/dL (8.5-10.1); Magnesium 1.9 mg/dL (1.6-2.6); Potassium 3.6 mmol/L (3.5-5.1)
[2018-02-20 19:40] LABS: Partial Thromboplastin Time 31.7 sec (23.78-33.04); Prothrombin Time 10.7 sec (9.27-12.13)
[2018-02-20 19:43] LABS: Bilirubin, Total 0.4 mg/dL (0.2-1.0); Total Protein 6.8 g/dL (6.4-8.2)
[2018-02-20] MEDS ORDERED: MORPHINE SULF INJ 2 MG/ML SYRINGE 1ML IV PRN ×2 (20:00→20:15)
[2018-02-20] MEDS ORDERED: NITROGLYCERIN 0.4 MG SL TAB SL PRN (20:00)
[2018-02-20] MEDS ORDERED: TEMAZEPAM 15 MG CAP PO PRN (20:15)
[2018-02-20] MEDS ORDERED: DEXTROSE (50%) 50ML SYRG IV PRN (20:15)
[2018-02-20] MEDS ORDERED: LACTULOSE 20Gm/30ML SOLN PO PRN (20:15)
[2018-02-20] MEDS ORDERED: amLODIPine BESYLATE 5 MG TAB PO ONE (20:15)
[2018-02-20] MEDS ORDERED: PROMETHAZINE HCL 25 MG/ML 1ML IV PRN (20:15)
[2018-02-20] MEDS ORDERED: LORazepam 0.5 MG TAB PO PRN (20:15)
[2018-02-20] MEDS ORDERED: ACETAMINOPHEN 500 MG TAB PO PRN (20:15)
[2018-02-20] MEDS: PRAMIPEXOLE DIHYDROCHLORIDE MO 0.25 MG TAB PO SCH (20:35)
[2018-02-20] MEDS: SODIUM CHLOR 0.9% PF (SALINE LOCK) 10ML VIAL/SYR IV SCH (22:43)
[2018-02-20] MEDS: ATORVASTATIN 20 MG TAB PO SCH (22:43)
[2018-02-20] MEDS: TERAZOSIN HCL 1 MG CAP PO SCH (22:43)
[2018-02-20] MEDS: METOPROLOL TARTRATE 25 MG TAB PO SCH (22:43)
[2018-02-20] MEDS: ACCU-CHEK COMFORT CURVE STRIP VI SCH (22:44)
[2018-02-20] MEDS: InsuLIN REG 1unit/0.01ml Soln (100units/ml) SC SCH (22:44)
[2018-02-21] MEDS: SODIUM CHLOR 0.9% PF (SALINE LOCK) 10ML VIAL/SYR IV SCH ×3 (06:01→21:39)
[2018-02-21] MEDS: InsuLIN REG 1unit/0.01ml Soln (100units/ml) SC SCH ×4 (06:27→21:44)
[2018-02-21] MEDS: FUROSEMIDE 40 MG TAB PO SCH ×2 (06:28→17:51)
[2018-02-21] MEDS: ACCU-CHEK COMFORT CURVE STRIP VI SCH ×4 (06:28→21:46)
[2018-02-21] MEDS ORDERED: ENOXAPARIN SOD 30 MG/0.3 ML SYRINGE SC SCH (10:00)
[2018-02-21] MEDS: CALCIUM ACETATE 667 MG CAP PO SCH ×3 (10:06→17:51)
[2018-02-21] MEDS: ASPirin-EC 81 mg tab PO SCH (10:06)
[2018-02-21] MEDS: SEVELAMER 800 MG TAB PO SCH ×3 (10:06→17:51)
[2018-02-21] MEDS: TERAZOSIN HCL 1 MG CAP PO SCH ×2 (10:07→21:45)
[2018-02-21] MEDS: ISOSORBIDE MONONITRATE 60 MG TAB PO SCH (10:07)
[2018-02-21] MEDS: METOPROLOL TARTRATE 25 MG TAB PO SCH ×2 (10:07→21:44)
[2018-02-21] MEDS: PANTOPRAZOLE 40 MG TAB PO SCH (10:08)
[2018-02-21] MEDS: CLOPIDOGREL BISULFATE 75 MG TAB PO SCH (10:08)
[2018-02-21] MEDS: amLODIPine BESYLATE 5 MG TAB PO SCH (10:23)
[2018-02-21 13:00] VITALS: BP 138/68
[2018-02-21 13:53] VITALS: BP 138/68
[2018-02-21 17:12] VITALS: BP 140/69
[2018-02-21] MEDS: PRAMIPEXOLE DIHYDROCHLORIDE MO 0.25 MG TAB PO SCH (17:51)
[2018-02-21] MEDS: HYDROcodone-ACET 5/325MG TAB PO PRN (18:34)
[2018-02-21] MEDS: ATORVASTATIN 20 MG TAB PO SCH (21:45)
[2018-02-21 22:00] VITALS: BP 136/65
[2018-02-21] MEDS ORDERED: PANTOPRAZOLE 40 MG/10 ML VIAL IV SCH (22:00)
[2018-02-22 05:00] VITALS: BP 136/66
[2018-02-22] MEDS: SODIUM CHLOR 0.9% PF (SALINE LOCK) 10ML VIAL/SYR IV SCH ×3 (06:24→22:44)
[2018-02-22] MEDS: FUROSEMIDE 40 MG TAB PO SCH ×2 (06:24→17:52)
[2018-02-22] MEDS: InsuLIN REG 1unit/0.01ml Soln (100units/ml) SC SCH ×4 (06:24→22:00)
[2018-02-22] MEDS: ACCU-CHEK COMFORT CURVE STRIP VI SCH ×4 (06:25→22:00)
[2018-02-22] MEDS: CALCIUM ACETATE 667 MG CAP PO SCH ×3 (07:57→17:53)
[2018-02-22] MEDS: SEVELAMER 800 MG TAB PO SCH ×3 (07:58→17:53)
[2018-02-22 08:00] VITALS: BP 148/72
[2018-02-22] MEDS: ASPirin-EC 81 mg tab PO SCH (09:52)
[2018-02-22] MEDS: TERAZOSIN HCL 1 MG CAP PO SCH (09:53)
[2018-02-22] MEDS: ISOSORBIDE MONONITRATE 60 MG TAB PO SCH (09:53)
[2018-02-22] MEDS: PANTOPRAZOLE 40 MG TAB PO SCH ×2 (09:54→22:44)
[2018-02-22] MEDS: CLOPIDOGREL BISULFATE 75 MG TAB PO SCH (09:54)
[2018-02-22] MEDS: amLODIPine BESYLATE 5 MG TAB PO SCH (09:54)
[2018-02-22] MEDS: METOPROLOL TARTRATE 25 MG TAB PO SCH ×2 (09:54→22:44)
[2018-02-22] MEDS ORDERED: SODIUM CHL 0.9% 1000 ML BAG XX ONE (10:30)
[2018-02-22 12:36] VITALS: BP 128/60
[2018-02-22 16:41] VITALS: BP 124/60
[2018-02-22] MEDS: PRAMIPEXOLE DIHYDROCHLORIDE MO 0.25 MG TAB PO SCH (17:52)
[2018-02-22 21:45] VITALS: BP 143/63
[2018-02-22] MEDS ORDERED: TERAZOSIN HCL 1 MG CAP PO SCH (22:00)
[2018-02-22] MEDS: ATORVASTATIN 20 MG TAB PO SCH (22:44)
[2018-02-22] MEDS: HYDROcodone-ACET 5/325MG TAB PO PRN (22:48)
[2018-02-23 05:00] VITALS: BP 136/68
[2018-02-23] MEDS: FUROSEMIDE 40 MG TAB PO SCH ×2 (06:13→18:00)
[2018-02-23] MEDS: SODIUM CHLOR 0.9% PF (SALINE LOCK) 10ML VIAL/SYR IV SCH ×3 (06:13→21:57)
[2018-02-23] MEDS: InsuLIN REG 1unit/0.01ml Soln (100units/ml) SC SCH ×4 (06:45→21:58)
[2018-02-23] MEDS: ACCU-CHEK COMFORT CURVE STRIP VI SCH ×4 (06:46→21:58)
[2018-02-23 08:00] VITALS: BP 130/62
[2018-02-23] MEDS: CALCIUM ACETATE 667 MG CAP PO SCH ×3 (08:26→18:00)
[2018-02-23] MEDS: SEVELAMER 800 MG TAB PO SCH ×3 (08:26→18:00)
[2018-02-23] MEDS: PANTOPRAZOLE 40 MG TAB PO SCH ×2 (10:00→21:58)
[2018-02-23] MEDS: METOPROLOL TARTRATE 25 MG TAB PO SCH ×2 (10:00→21:58)
[2018-02-23] MEDS ORDERED: EPOETIN ALFA 10,000 UNIT/1 ML VIAL IV ONE (10:30)
[2018-02-23 12:00] VITALS: BP 152/73
[2018-02-23 14:06] LABS: Basophils # (auto) 0 uL; Basophils % (auto) 0.9 % (0.0-2.0); Eosinophils # (auto) 0.1 uL; Eosinophils % (auto) 2.4 % (0.0-7.0); Hematocrit 25.1 % (41.0-53.0); Hemoglobin 8.7 g/dL (13.5-17.5); Lymphocytes # (auto) 1.1 uL; Lymphocytes % (auto) 20.5 % (10.0-50.0); Mean Corpuscular Hemoglobin 32.6 pg (28.0-32.0); Mean Corpuscular Hgb Conc. 34.5 g/dL (32.0-36.0); Mean Corpuscular Volume 94.5 fL (80.0-100.0); Monocytes # (auto) 0.5 uL; Monocytes % (auto) 9.6 % (0.0-12.0); Neutrophils # (auto) 3.5 uL; Neutrophils % (auto) 66.6 % (37.0-80.0); Nucleated Red Blood Cells % 0.1 %; Platelet Count (auto) 212 10^3/uL (140-450); Red Blood Cells 2.66 10^6/uL (4.5-5.90); Red Cell Distribution Width 14.1 % (11.8-14.3); White Blood Cell 5.2 10^3/uL (4.4-10.8)
[2018-02-23 17:00] VITALS: BP 178/71
[2018-02-23] MEDS: PRAMIPEXOLE DIHYDROCHLORIDE MO 0.25 MG TAB PO SCH (18:00)
[2018-02-23] MEDS: ASPirin-EC 81 mg tab PO SCH (19:46)
[2018-02-23] MEDS: ISOSORBIDE MONONITRATE 60 MG TAB PO SCH (19:47)
[2018-02-23] MEDS: CLOPIDOGREL BISULFATE 75 MG TAB PO SCH (19:48)
[2018-02-23] MEDS: amLODIPine BESYLATE 5 MG TAB PO SCH (19:48)
[2018-02-23] MEDS: ATORVASTATIN 20 MG TAB PO SCH (21:57)
[2018-02-23 22:00] VITALS: BP 173/74
[2018-02-23] MEDS ORDERED: TERAZOSIN HCL 1 MG CAP PO SCH (22:00)
[2018-02-24 05:00] VITALS: BP 141/64
[2018-02-24] MEDS: ACCU-CHEK COMFORT CURVE STRIP VI SCH ×2 (05:49→11:26)
[2018-02-24] MEDS: SODIUM CHLOR 0.9% PF (SALINE LOCK) 10ML VIAL/SYR IV SCH ×2 (05:49→14:00)
[2018-02-24] MEDS: FUROSEMIDE 40 MG TAB PO SCH (05:49)
[2018-02-24] MEDS: InsuLIN REG 1unit/0.01ml Soln (100units/ml) SC SCH ×2 (05:49→11:26)
[2018-02-24 05:56] LABS: Basophils # (auto) 0.1 uL; Basophils % (auto) 1.1 % (0.0-2.0); Eosinophils # (auto) 0.1 uL; Eosinophils % (auto) 2.3 % (0.0-7.0); Hematocrit 25.8 % (41.0-53.0); Hemoglobin 8.8 g/dL (13.5-17.5); Lymphocytes # (auto) 1.2 uL; Lymphocytes % (auto) 25.8 % (10.0-50.0); Mean Corpuscular Hemoglobin 32.5 pg (28.0-32.0); Mean Corpuscular Hgb Conc. 34.2 g/dL (32.0-36.0); Monocytes # (auto) 0.4 uL; Monocytes % (auto) 8.1 % (0.0-12.0); Neutrophils % (auto) 62.7 % (37.0-80.0); Platelet Count (auto) 225 10^3/uL (140-450); Red Blood Cells 2.72 10^6/uL (4.5-5.90); Red Cell Distribution Width 13.8 % (11.8-14.3); White Blood Cell 4.7 10^3/uL (4.4-10.8)
[2018-02-24] MEDS: SEVELAMER 800 MG TAB PO SCH ×2 (08:00→12:00)
[2018-02-24] MEDS: CALCIUM ACETATE 667 MG CAP PO SCH ×2 (08:00→15:49)
[2018-02-24 09:19] VITALS: BP 143/69
[2018-02-24] MEDS: PANTOPRAZOLE 40 MG TAB PO SCH (10:00)
[2018-02-24] MEDS: METOPROLOL TARTRATE 25 MG TAB PO SCH (10:00)
[2018-02-24] MEDS ORDERED: MET25T PO (12:29)
[2018-02-24] MEDS ORDERED: EZ PAQUE SUSP 12OZ BTL ONE (12:31)
[2018-02-24] MEDS ORDERED: EZ-GAS II GRANULES (RADIOLOGY USE) PO ONE (12:32)
[2018-02-24 12:37] VITALS: BP 152/70
[2018-02-24] MEDS ORDERED: PANT40TA2 PO (13:33)
[2018-02-24] MEDS ORDERED: DULO60CA PO (13:35)
[2018-02-24] MEDS: amLODIPine BESYLATE 5 MG TAB PO SCH (15:49)
[2018-02-24] MEDS: CLOPIDOGREL BISULFATE 75 MG TAB PO SCH (15:49)
[2018-02-24] MEDS: ISOSORBIDE MONONITRATE 60 MG TAB PO SCH (15:50)
[2018-02-24] MEDS: ASPirin-EC 81 mg tab PO SCH (15:50)
[2018-02-24 16:17] VITALS: BP 152/70
== END 2018-02-24 17:07 | disposition home or self-care (01) | DRG 302 ==
LOC: EDUNIT# 18:42 → EDBD 18:42 → ER 18:51 → TELE 18:52 → TELE-WESTW 02-21 11:22
PROVIDERS: ADMIT Internal Medicine; ATTEND Internal Medicine
PROC: 5A1D70Z Performance of Urinary Filtration, Intermittent, Less than 6 Hours Per Day (ICD-10-PCS; principal; 2018-02-23)
DX: I25.10 Atherosclerotic heart disease of native coronary artery without angina pectoris (principal); N18.6 End stage renal disease; E43 Unspecified severe protein-calorie malnutrition; I50.32 Chronic diastolic (congestive) heart failure; I13.2 Hypertensive heart and chronic kidney disease with heart failure and with stage 5 chronic kidney disease, or end stage renal disease; I16.0 Hypertensive urgency; Z99.2 Dependence on renal dialysis; E78.5 Hyperlipidemia, unspecified; D63.8 Anemia in other chronic diseases classified elsewhere; E11.21 Type 2 diabetes mellitus with diabetic nephropathy; E11.22 Type 2 diabetes mellitus with diabetic chronic kidney disease; F32.9 Major depressive disorder, single episode, unspecified; G89.29 Other chronic pain; I45.10 Unspecified right bundle-branch block; K21.9 Gastro-esophageal reflux disease without esophagitis; I25.2 Old myocardial infarction; Z68.24 Body mass index [BMI] 24.0-24.9, adult; Z82.3 Family history of stroke; Z82.49 Family history of ischemic heart disease and other diseases of the circulatory system; Z83.3 Family history of diabetes mellitus; Z86.73 Personal history of transient ischemic attack (TIA), and cerebral infarction without residual deficits; Z95.5 Presence of coronary angioplasty implant and graft; Z79.82 Long term (current) use of aspirin; Z79.899 Other long term (current) drug therapy; Z90.49 Acquired absence of other specified parts of digestive tract; Z95.828 Presence of other vascular implants and grafts
CPT/HCPCS: 36415; 71045; 74018; 74247; 80053; 82550; 82962; 83036; 83735; 83880; 84484; 85025; 85610; 85652; 85730; 87081; 90935; 93005; 93306; 94761; 96372; 96374; 96375; J0885; J1815; J2405

== ENCOUNTER 2018-03-16 20:43 | Inpatient (IN) | payer MEDICARE, MEDICAID ==
[~2018-03-16] VITALS: Ht 160 cm; Wt 61.2 kg
[~2018-03-16 20:43] MED LIST changes: +AMLO5TAB13 PO; -AMLO5TAB2 PO; +DULO60CA PO; +MET25T PO; +PANT40TA2 PO
[2018-03-16 21:13] LABS: Basophils # (auto) 0.1 uL; Basophils % (auto) 1.3 % (0.0-2.0); Eosinophils # (auto) 0.1 uL; Eosinophils % (auto) 1.5 % (0.0-7.0); Hematocrit 27.6 % (41.0-53.0); Hemoglobin 9.3 g/dL (13.5-17.5); Lymphocytes # (auto) 1.2 uL; Lymphocytes % (auto) 26.4 % (10.0-50.0); Mean Corpuscular Hemoglobin 32.8 pg (28.0-32.0); Mean Corpuscular Hgb Conc. 33.9 g/dL (32.0-36.0); Mean Corpuscular Volume 96.9 fL (80.0-100.0); Monocytes # (auto) 0.4 uL; Monocytes % (auto) 9.6 % (0.0-12.0); Neutrophils # (auto) 2.8 uL; Neutrophils % (auto) 61.2 % (37.0-80.0); Nucleated Red Blood Cells % 0.2 %; Platelet Count (auto) 192 10^3/uL (140-450); Red Blood Cells 2.85 10^6/uL (4.5-5.90); Red Cell Distribution Width 14.4 % (11.8-14.3); White Blood Cell 4.5 10^3/uL (4.4-10.8)
[2018-03-16 21:29] LABS: INR 1.03 (0.9-1.15)
[2018-03-16 21:38] LABS: Albumin 3.2 g/dL (3.4-5.0); BUN/Creatinine Ratio 5.5; Calcium 6.8 mg/dL (8.5-10.1); Magnesium 2.2 mg/dL (1.6-2.6); Potassium 4.6 mmol/L (3.5-5.1)
[2018-03-16 21:43] LABS: Bilirubin, Total 0.3 mg/dL (0.2-1.0)
[2018-03-17] MEDS ORDERED: MORPHINE SULF INJ 2 MG/ML SYRINGE 1ML IV PRN (07:30)
[2018-03-17] MEDS ORDERED: ACETAMINOPHEN 500 MG TAB PO PRN (07:30)
[2018-03-17] MEDS ORDERED: NITROGLYCERIN 0.4 MG SL TAB SL PRN (07:30)
[2018-03-17] MEDS ORDERED: ONDANSETRON HCL 4 MG/2 ML VIAL IV PRN (07:30)
[2018-03-17] MEDS ORDERED: DEXTROSE (50%) 50ML SYRG IV PRN (08:00)
[2018-03-17] MEDS: CALCIUM ACETATE 667 MG CAP PO SCH ×2 (09:19→13:03)
[2018-03-17] MEDS: SEVELAMER 800 MG TAB PO SCH ×2 (09:20→13:03)
[2018-03-17] MEDS ORDERED: DULoxetine HCL 30 MG CAP PO SCH (10:00)
[2018-03-17] MEDS ORDERED: PANTOPRAZOLE 40 MG TAB PO SCH (10:00)
[2018-03-17] MEDS ORDERED: ISOSORBIDE MONONITRATE 60 MG TAB PO SCH (10:00)
[2018-03-17] MEDS ORDERED: CLOPIDOGREL BISULFATE 75 MG TAB PO SCH (10:00)
[2018-03-17] MEDS ORDERED: hydrALAZINE HCL 25 MG TAB PO SCH (10:00)
[2018-03-17 10:59] VITALS: BP 167/71
[2018-03-17] MEDS ORDERED: InsuLIN REG 1unit/0.01ml Soln (100units/ml) SC SCH (11:30)
[2018-03-17] MEDS ORDERED: ACCU-CHEK COMFORT CURVE STRIP VI SCH (11:30)
[2018-03-17] MEDS ORDERED: ISOSORBIDE DINITRATE 10 MG TAB PO SCH (12:00)
[2018-03-17] MEDS ORDERED: RANO500T2 PO (12:19)
[2018-03-17] MEDS ORDERED: cloNIDine HCL 0.1 MG TAB PO SCH (14:00)
== END 2018-03-17 13:40 | disposition home or self-care (01) | DRG 302 ==
LOC: ER 20:43 → TELE 20:44
PROVIDERS: ADMIT Nurse Practitioner Family; ATTEND Internal Medicine
DX: I25.119 Atherosclerotic heart disease of native coronary artery with unspecified angina pectoris (principal); N18.6 End stage renal disease; I13.2 Hypertensive heart and chronic kidney disease with heart failure and with stage 5 chronic kidney disease, or end stage renal disease; I50.32 Chronic diastolic (congestive) heart failure; J98.11 Atelectasis; Z99.2 Dependence on renal dialysis; K21.9 Gastro-esophageal reflux disease without esophagitis; D63.8 Anemia in other chronic diseases classified elsewhere; F41.9 Anxiety disorder, unspecified; F32.9 Major depressive disorder, single episode, unspecified; G89.29 Other chronic pain; E11.22 Type 2 diabetes mellitus with diabetic chronic kidney disease; E78.5 Hyperlipidemia, unspecified; Z82.3 Family history of stroke; Z82.49 Family history of ischemic heart disease and other diseases of the circulatory system; Z83.3 Family history of diabetes mellitus; Z95.5 Presence of coronary angioplasty implant and graft; Z87.891 Personal history of nicotine dependence; Z79.82 Long term (current) use of aspirin
CPT/HCPCS: 36415; 71046; 80053; 82962; 83735; 83880; 84443; 84484; 85025; 85610; 85730; 93005

== ENCOUNTER 2018-05-08 06:55 | Emergency (ER) | payer MEDICARE, MEDICAID ==
[~2018-05-08] VITALS: Ht 167.6 cm; Wt 81.6 kg
[~2018-05-08 06:55] MED LIST changes: +RANO500T2 PO
[2018-05-08] MEDS ORDERED: LORazepam 2MG/ML-1ML VIAL IV ONE (07:45)
[2018-05-08 07:51] LABS: Basophils # (auto) 0.1 uL; Basophils % (auto) 0.7 % (0.0-2.0); Eosinophils # (auto) 0.1 uL; Eosinophils % (auto) 1.3 % (0.0-7.0); Hematocrit 41.9 % (41.0-53.0); Lymphocytes # (auto) 1.5 uL; Lymphocytes % (auto) 17.2 % (10.0-50.0); Mean Corpuscular Hemoglobin 32.1 pg (28.0-32.0); Mean Corpuscular Hgb Conc. 33.4 g/dL (32.0-36.0); Mean Corpuscular Volume 96.1 fL (80.0-100.0); Monocytes # (auto) 0.7 uL; Monocytes % (auto) 8.5 % (0.0-12.0); Neutrophils # (auto) 6.4 uL; Neutrophils % (auto) 72.3 % (37.0-80.0); Nucleated Red Blood Cells % 0.1 %; Platelet Count (auto) 232 10^3/uL (140-450); Red Blood Cells 4.36 10^6/uL (4.5-5.90); Red Cell Distribution Width 14.4 % (11.8-14.3); White Blood Cell 8.8 10^3/uL (4.4-10.8)
[2018-05-08 08:07] LABS: Albumin 3.7 g/dL (3.4-5.0); BUN/Creatinine Ratio 7.6; Calcium 7.1 mg/dL (8.5-10.1); Magnesium 2.8 mg/dL (1.6-2.6)
[2018-05-08 08:11] LABS: Bilirubin, Total 0.5 mg/dL (0.2-1.0); Total Protein 7.7 g/dL (6.4-8.2)
[2018-05-08 08:37] LABS: Potassium 5.8 mmol/L (3.5-5.1)
[2018-05-08] MEDS ORDERED: ALBUTEROL SULF 2.5 MG/0.5ML(0.5%) NEB SOLN NEB STA (09:16)
[2018-05-08] MEDS ORDERED: InsuLIN REG 1unit/0.01ml Soln (100units/ml) IV ONE (09:30)
[2018-05-08] MEDS ORDERED: SODIUM POLYSTYRENE SULF 15 GM POWDER PO ONE (09:30)
[2018-05-08] MEDS ORDERED: SODIUM BICARBONATE 8.4 % INJ 50ML VIAL IV ONE (09:30)
[2018-05-08] MEDS ORDERED: CALCIUM GLUC 4.65meq/50ml D5AE 50 ML IV ONE (09:30)
[2018-05-08] MEDS ORDERED: DEXTROSE (50%) 50ML SYRG IV ONE (09:30)
[2018-05-08] MEDS ORDERED: SODIUM BICARBONATE 8.4% INJ 50ML SYRINGE IV ONE (09:30)
[2018-05-08 10:11] VITALS: BP 143/64
== END 2018-05-08 11:02 | disposition home or self-care (01) ==
LOC: EDBD 06:55 → ER 06:55
DX: E11.22 Type 2 diabetes mellitus with diabetic chronic kidney disease (principal); I13.2 Hypertensive heart and chronic kidney disease with heart failure and with stage 5 chronic kidney disease, or end stage renal disease; I50.9 Heart failure, unspecified; N18.6 End stage renal disease; F41.9 Anxiety disorder, unspecified; K21.9 Gastro-esophageal reflux disease without esophagitis; I25.119 Atherosclerotic heart disease of native coronary artery with unspecified angina pectoris; E78.5 Hyperlipidemia, unspecified; I25.2 Old myocardial infarction; Z79.01 Long term (current) use of anticoagulants; Z79.82 Long term (current) use of aspirin; Z79.899 Other long term (current) drug therapy; Z90.49 Acquired absence of other specified parts of digestive tract; Z98.61 Coronary angioplasty status
CPT/HCPCS: 36415; 71045; 80053; 83735; 84484; 85025; 93005; 94644; 94761; 96365; 96375; 99285; J0610; J1815; J2060; J7042; J7611

== ENCOUNTER 2018-10-14 07:45 | Inpatient (IN) | payer MEDICARE, MEDICAID | END 2018-10-17 14:11 | disposition home or self-care (01) | LOC: ER 07:45 → TELE 13:21 → TELE-CENTR 19:03 | DX: I13.2 Hypertensive heart and chronic kidney disease with heart failure and with stage 5 chronic kidney disease, or end stage renal disease (principal); I50.23 Acute on chronic systolic (congestive) heart failure; N18.6 End stage renal disease; Z99.2 Dependence on renal dialysis; E83.51 Hypocalcemia; E87.5 Hyperkalemia; F32.9 Major depressive disorder, single episode, unspecified; F41.9 Anxiety disorder, unspecified; D63.8 Anemia in other chronic diseases classified elsewhere ==

== ENCOUNTER 2019-01-11 08:28 | Inpatient (IN) | payer MEDICARE, MEDICAID ==
[~2019-01-11] VITALS: Ht 167.6 cm; Wt 85.6 kg
[~2019-01-11 08:28] MED LIST changes: +ASPI81CH59 PO; -ASPI81TA27 PO; +BRIM0.159 OP; -CALC667C PO; -CLOP75TA28 PO; +CLOP75TA41 PO; +FURO40TA4 PO; -FURO80TA PO; +HYDR100T22 PO; -ISO20T PO; +LISI10TA6 PO; +LOSA100T22 PO; +PATI1POW PO; -ROSU10TA16 PO
[2019-01-11] MEDS ORDERED: MORPHINE SULF INJ 2 MG/ML SYRINGE 1ML ONE (08:33)
[2019-01-11] MEDS ORDERED: ONDANSETRON HCL 4 MG/2 ML VIAL ONE ×2 (08:33→10:04)
[2019-01-11] MEDS ORDERED: SODIUM BICARBONATE 8.4% INJ 50ML SYRINGE ONE ×3 (08:39→10:00)
[2019-01-11] MEDS ORDERED: DEXTROSE 50% SYRINGE 50 ML IV ONE (08:45)
[2019-01-11] MEDS ORDERED: InsuLIN REG 1unit/0.01ml Soln (100units/ml) ONE (08:46)
[2019-01-11] MEDS ORDERED: ALBUTEROL SULF 2.5 MG/0.5ML(0.5%) NEB SOLN NEB STA (08:51)
[2019-01-11] MEDS ORDERED: NOREPINEPHRINE 8 MG/250ML KIT 250 ML IV ONE (08:56)
[2019-01-11] MEDS ORDERED: DEXTROSE (50%) 50ML SYRG IV ONE ×3 (09:00→10:00)
[2019-01-11] MEDS ORDERED: SODIUM BICARBONATE 8.4 % INJ 50ML VIAL IV ONE ×3 (09:00→10:00)
[2019-01-11] MEDS ORDERED: ONDANSETRON HCL 4 MG/2 ML VIAL IV ONE ×2 (09:00→10:15)
[2019-01-11] MEDS ORDERED: InsuLIN REG 1unit/0.01ml Soln (100units/ml) IV ONE ×4 (09:00→10:00)
[2019-01-11] MEDS ORDERED: MORPHINE SULFATE 4 MG/ML SYR/VIAL IV ONE (09:00)
[2019-01-11] MEDS ORDERED: CALCIUM GLUC 4.65meq/50ml D5AE 50 ML IV ONE ×2 (09:00→10:00)
[2019-01-11] MEDS ORDERED: SODIUM ZIRCONIUM CYCL 10 GM PAK PO ONE ×2 (09:00→10:30)
[2019-01-11] MEDS ORDERED: NOREPINEPHRINE 8 MG/250ML KIT 250 ML IV SCH (09:15)
[2019-01-11 09:21] LABS: Basophils # (auto) 0.1 uL; Basophils % (auto) 0.9 % (0.0-2.0); Eosinophils # (auto) 0.1 uL; Eosinophils % (auto) 1.6 % (0.0-7.0); Hematocrit 35.6 % (41.0-53.0); Hemoglobin 11.5 g/dL (13.5-17.5); Lymphocytes # (auto) 1.2 uL; Lymphocytes % (auto) 13.9 % (10.0-50.0); Mean Corpuscular Hemoglobin 31.8 pg (28.0-32.0); Mean Corpuscular Hgb Conc. 32.3 g/dL (32.0-36.0); Mean Corpuscular Volume 98.5 fL (80.0-100.0); Monocytes # (auto) 0.7 uL; Monocytes % (auto) 8.2 % (0.0-12.0); Neutrophils # (auto) 6.4 uL; Neutrophils % (auto) 75.4 % (37.0-80.0); Nucleated Red Blood Cells % 0.1 %; Platelet Count (auto) 169 10^3/uL (140-450); Red Blood Cells 3.61 10^6/uL (4.5-5.90); Red Cell Distribution Width 15.1 % (11.8-14.3); White Blood Cell 8.5 10^3/uL (4.4-10.8)
[2019-01-11] MEDS ORDERED: GLUCAGON HYDROCHLORIDE (RDNA) 1 MG VIAL ONE (09:23)
[2019-01-11] MEDS ORDERED: GLUCAGON HYDROCHLORIDE (RDNA) 1 MG VIAL IV ONE (09:30)
[2019-01-11] MEDS ORDERED: LIDOCAINE 2%HCL (LOCAL ANESTH.) INJ 20ML MDV ONE (09:44)
[2019-01-11] MEDS ORDERED: fentaNYL CITRATE 100 MCG/2 ML VL ONE (09:46)
[2019-01-11] MEDS ORDERED: MIDAZOLAM HCL 1MG/1ML-2 ML VIAL ONE (09:47)
[2019-01-11 09:49] LABS: INR 1.11 (0.9-1.15); Partial Thromboplastin Time 30.8 sec (23.64-32.05)
[2019-01-11] MEDS ORDERED: ALBUTEROL SULF 2.5 MG/0.5ML(0.5%) NEB SOLN ONE (09:58)
[2019-01-11] MEDS ORDERED: LOSARTAN POTASSIUM 50 MG TAB PO SCH (10:00)
[2019-01-11] MEDS: TERAZOSIN HCL 1 MG CAP PO SCH ×2 (10:00→22:29)
[2019-01-11] MEDS: DULoxetine HCL 30 MG CAP PO SCH (10:00)
[2019-01-11] MEDS ORDERED: ALBUTEROL SULF 2.5 MG/0.5ML(0.5%) NEB SOLN NEB ONE ×2 (10:00→10:15)
[2019-01-11] MEDS ORDERED: MORPHINE SULF INJ 2 MG/ML SYRINGE 1ML IV PRN ×2 (10:15)
[2019-01-11] MEDS ORDERED: ACETAMINOPHEN 500 MG TAB PO PRN (10:15)
[2019-01-11] MEDS ORDERED: DEXTROSE (50%) 50ML SYRG IV PRN (10:15)
[2019-01-11] MEDS ORDERED: NITROGLYCERIN 0.4 MG SL TAB SL PRN (10:15)
[2019-01-11] MEDS ORDERED: ONDANSETRON HCL 4 MG/2 ML VIAL IV PRN (10:15)
[2019-01-11] MEDS ORDERED: HYDROcodone-ACET 5/325MG TAB PO PRN (10:15)
[2019-01-11] MEDS ORDERED: FUROSEMIDE 40 MG/4 ML VIAL IV ONE (10:30)
[2019-01-11] MEDS ORDERED: FAMOTIDINE 20 MG TAB PO ONE (10:45)
[2019-01-11] MEDS ORDERED: LOSARTAN POTASSIUM 50 MG TAB PO ONE (10:45)
[2019-01-11] MEDS ORDERED: DULoxetine HCL 30 MG CAP PO ONE (10:45)
[2019-01-11] MEDS ORDERED: RANOLAZINE ER 500 MG TAB PO ONE (10:45)
[2019-01-11] MEDS ORDERED: amLODIPine BESYLATE 5 MG TAB PO ONE (10:45)
[2019-01-11] MEDS ORDERED: DOCUSATE SOD 100 MG CAP PO ONE (10:45)
[2019-01-11] MEDS ORDERED: CLOPIDOGREL BISULFATE 75 MG TAB PO ONE (10:45)
[2019-01-11] MEDS ORDERED: TERAZOSIN HCL 1 MG CAP PO ONE (10:45)
[2019-01-11] MEDS ORDERED: SODIUM CHL 0.9% 1000 ML BAG XX ONE (11:30)
[2019-01-11] MEDS: InsuLIN REG 1unit/0.01ml Soln (100units/ml) SC SCH ×3 (11:30→22:00)
[2019-01-11] MEDS: ACCU-CHEK COMFORT CURVE STRIP VI SCH ×3 (11:30→22:00)
[2019-01-11] MEDS: ASPirin-EC 81 mg tab PO SCH (11:41)
[2019-01-11 11:58] LABS: Sodium 145 mmol/L (136-145)
[2019-01-11 11:59] LABS: Anion Gap 13 (5-15); Carbon Dioxide 19 mmol/L (21-32); Chloride 113 mmol/L (98-107); Glucose 105 mg/dL (74-106); Potassium 6.3 mmol/L (3.5-5.1)
[2019-01-11 12:00] LABS: Alanine Aminotransferase 40 U/L (16-61); Alkaline Phosphatase 126 U/L (45-117); Aspartate Aminotransferase 25 U/L (15-37); BUN/Creatinine Ratio 10.5; Blood Urea Nitrogen 87 mg/dL (7-18); GFR African American 8 mL/min; GFR Non-African American 7 mL/min
[2019-01-11] MEDS: SEVELAMER 800 MG TAB PO SCH ×2 (12:00→19:37)
[2019-01-11 12:01] LABS: Albumin 2.7 g/dL (3.4-5.0); Bilirubin, Total 0.4 mg/dL (0.2-1.0); Calcium 5.4 mg/dL (8.5-10.1); Total Protein 5.6 g/dL (6.4-8.2)
[2019-01-11 12:02] LABS: Magnesium 2.7 mg/dL (1.6-2.6)
--- NOTE | 2019-01-11 12:30 | NUR ---
Admit to [facility] from [facility] admitted to [facility] via gurney on night monitor, and portable 02. Patient transferred to bed, connected to unit monitoring and oxygen, and weighed by bedscale. Patient oriented to LATHA COTTRELL RN primary RN, unit, room, bed, and unit policies regarding patient care and visiting hours. All questions and concerns addressed, patient verbalized understanding. Hemodialysis nurse at the bedside, will start HD at the bedside soon.
--- NOTE | 2019-01-11 13:30 | NUR ---
Provided Lunch tray, patient sitting on the bed, will continue to monitor and care.
[2019-01-11 13:50] VITALS: BP 122/54
--- NOTE | 2019-01-11 14:03 | NUR ---
Patient speaks Armenian only, need industrial psychologist. Got a contact number from patient at this time, his home care nurse: Daja Hua number [phone], and patient's son: Jaxon number [phone], talked to Jaxon on the phone, he able to give some information, he will be here around 3 pm.
[2019-01-11 16:00] VITALS: BP 161/68
--- NOTE | 2019-01-11 16:00 | NUR ---
Dialysis done at this time, NS and Heparin given by HD nurse as orders, got 2 liters out from dialysis. His son at the bedside, plan of care discussed with patient and son (helping with drill doctor).
--- NOTE | 2019-01-11 16:50 | NUR ---
Patient stated that he would like to take a nap, sitting up on the bed, his son at the bedside, on O2 NC 2 LPM, O2 saturation 99-100%, will continue to monitor BP.
[2019-01-11 17:24] LABS: Anion Gap 9 (5-15); BUN/Creatinine Ratio 9.4; Blood Urea Nitrogen 40 mg/dL (7-18); Calcium 7.4 mg/dL (8.5-10.1); Carbon Dioxide 30 mmol/L (21-32); Chloride 100 mmol/L (98-107); GFR African American 18 mL/min; GFR Non-African American 15 mL/min; Glucose 110 mg/dL (74-106); Sodium 139 mmol/L (136-145)
--- NOTE | 2019-01-11 18:32 | NUR ---
Faxed order for food request to cafeteria because patient didn't get dinner tray.
--- NOTE | 2019-01-11 19:30 | NUR ---
OPENING SHIFT RECEIVED REPORT FROM DAY SHIFT RN. ASSUMED CARE OF PATIENT. PATIENT IN BED EATING DINNER WITH NO SIGNS OR SYMPTOMS OF SOB, PAIN OR DISTRESS. CURRENTLY ON 2L NASAL CANNULA, 02 SAT - 99%. RIGHT HAND IV - CLEAN/DRY/INTACT. LEFT FISTULA AUSCULTATED - BRUIT/THRILL PRESENT. UPDATED PATIENT ON PLAN OF CARE VIA [employer] TRANSLATE - PATIENT VENEZUELAN SPEAKING. REPOSITIONED FOR COMFORT. BED IN LOWEST POSITION, SIDE RAILS UP X2, CALL LIGHT WITHIN REACH. WILL CONTINUE TO MONITOR.
[2019-01-11 19:45] VITALS: BP 160/78
[2019-01-11] MEDS: DOCUSATE SOD 100 MG CAP PO SCH (22:26)
[2019-01-11] MEDS: RANOLAZINE ER 500 MG TAB PO SCH (22:26)
[2019-01-11] MEDS: ATORVASTATIN 20 MG TAB PO SCH (22:29)
--- NOTE | 2019-01-11 23:40 | NUR ---
ROUNDS PATIENT IN BED SLEEPING WITH NO SIGNS OR SYMPTOMS OF SOB, PAIN OR DISTRESS. CURRENTLY ON 2L 02 NASAL CANNULA, 02 SAT - 98%. REPOSITIONED FOR COMFORT. BED IN LOWEST POSITION, SIDE RAILS UP X2, CALL LIGHT WITHIN REACH. WILL CONTINUE TO MONITOR.
[2019-01-12] VITALS: BP 156/77
[2019-01-12 04:00] VITALS: BP 150/76
--- NOTE | 2019-01-12 04:05 | NUR ---
MORNING CARE PATIENT REFUSED MORNING CARE, GOWN CHANGE AND LINEN CHANGE AT THIS TIME. REPOSITIONED FOR COMFORT. CLEAN LINEN LEFT AT THE BEDSIDE. BED IN LOWEST POSITION, SIDE RAILS UP X2, CALL LIGHT WITHIN REACH.
[2019-01-12 06:02] LABS: Basophils # (auto) 0.1 uL; Eosinophils # (auto) 0.1 uL; Eosinophils % (auto) 1.5 % (0.0-7.0); Hematocrit 35.2 % (41.0-53.0); Hemoglobin 11.7 g/dL (13.5-17.5); Lymphocytes # (auto) 0.9 uL; Lymphocytes % (auto) 14.6 % (10.0-50.0); Mean Corpuscular Hemoglobin 32.5 pg (28.0-32.0); Mean Corpuscular Hgb Conc. 33.4 g/dL (32.0-36.0); Mean Corpuscular Volume 97.3 fL (80.0-100.0); Monocytes # (auto) 0.6 uL; Monocytes % (auto) 10.4 % (0.0-12.0); Neutrophils # (auto) 4.4 uL; Neutrophils % (auto) 72.5 % (37.0-80.0); Nucleated Red Blood Cells % 0.1 %; Platelet Count (auto) 161 10^3/uL (140-450); Red Blood Cells 3.62 10^6/uL (4.5-5.90); Red Cell Distribution Width 15.3 % (11.8-14.3); White Blood Cell 6.1 10^3/uL (4.4-10.8)
[2019-01-12 06:34] LABS: Anion Gap 13 (5-15); BUN/Creatinine Ratio 6.8; Blood Urea Nitrogen 50 mg/dL (7-18); Calcium 6.7 mg/dL (8.5-10.1); Carbon Dioxide 29 mmol/L (21-32); Chloride 97 mmol/L (98-107); GFR African American 10 mL/min; GFR Non-African American 8 mL/min; Glucose 69 mg/dL (74-106); Sodium 139 mmol/L (136-145)
--- NOTE | 2019-01-12 06:35 | NUR ---
END OF SHIFT PATIENT IN BED WATCHING TV WITH NO SIGNS OR SYMPTOMS OF SOB, PAIN OR DISTRESS. CURRENTLY ON 2L 02 NASAL CANNULA, 02 SAT - 100%. REPOSITIONED FOR COMFORT. UPDATED ON PLAN OF CARE. BED IN LOWEST POSITION, SIDE RAILS UP X2, CALL LIGHT WITHIN REACH. WILL ENDORSE CARE TO DAY SHIFT RN.
[2019-01-12 06:43] LABS: Potassium 6.4 mmol/L (3.5-5.1)
--- NOTE | 2019-01-12 06:47 | NUR ---
PAGED DR. SARMIENTO IN REGARDS TO ELEVATED POTASSIUM. AWAITING CALL BACK.
[2019-01-12] MEDS: InsuLIN REG 1unit/0.01ml Soln (100units/ml) SC SCH ×4 (07:00→22:00)
--- NOTE | 2019-01-12 07:11 | NUR ---
HORSE WRANGLER DR. SOLOMON CALLED BACK AND GAVE ORDERS FOR [facility] X1
[2019-01-12] MEDS ORDERED: SODIUM ZIRCONIUM CYCL 10 GM PAK PO ONE (07:15)
[2019-01-12] MEDS: ACCU-CHEK COMFORT CURVE STRIP VI SCH ×4 (07:28→22:00)
[2019-01-12 08:00] VITALS: BP 160/78
--- NOTE | 2019-01-12 08:02 | NUR ---
BLOOD SUGAR CHECK PATIENT REPORTED TO THIS NURSE IN ITALIAN THAT HIS BLOOD SUGAR MAY BE LOW AND IF BREAKFAST WAS BEING SERVED. CURRENT BLOOD SUGAR 83, PATIENT PROVIDED WITH APPLE JUICE AT THIS TIME.
[2019-01-12] MEDS: ASPirin-EC 81 mg tab PO SCH (09:09)
[2019-01-12] MEDS: CLOPIDOGREL BISULFATE 75 MG TAB PO SCH (09:09)
[2019-01-12] MEDS: DULoxetine HCL 30 MG CAP PO SCH (09:09)
[2019-01-12] MEDS: FAMOTIDINE 20 MG TAB PO SCH (09:10)
[2019-01-12] MEDS: DOCUSATE SOD 100 MG CAP PO SCH ×2 (09:11→22:00)
[2019-01-12] MEDS: RANOLAZINE ER 500 MG TAB PO SCH ×2 (09:11→22:04)
[2019-01-12] MEDS: amLODIPine BESYLATE 5 MG TAB PO SCH (09:15)
[2019-01-12] MEDS: TERAZOSIN HCL 1 MG CAP PO SCH ×2 (10:05→22:03)
[2019-01-12 11:50] VITALS: BP 143/61
[2019-01-12] MEDS: SEVELAMER 800 MG TAB PO SCH ×2 (13:03→18:19)
[2019-01-12] MEDS: CALCIUM ACETATE 667 MG CAP PO SCH ×2 (13:04→18:18)
[2019-01-12] MEDS: SODIUM ZIRCONIUM CYCL 10 GM PAK PO SCH ×2 (14:34→22:03)
[2019-01-12 15:18] LABS: BUN/Creatinine Ratio 7.1; Calcium 6.7 mg/dL (8.5-10.1)
[2019-01-12 15:31] LABS: Potassium 6.2 mmol/L (3.5-5.1)
[2019-01-12 16:00] VITALS: BP 121/57
--- NOTE | 2019-01-12 16:58 | NUR ---
CRITICAL RECEIVED CRITICAL LAB VALUE OF A POTASSIUM OF 6.2, PAGED DR SARMIENTO TO NOTIFY. AWAITING RESPONSE.
--- NOTE | 2019-01-12 17:23 | NUR ---
RETURN CALL FROM DR SARMIENTO ORDERS RECEIVED AND WILL BE CARRIED OUT.
[2019-01-12] MEDS ORDERED: DEXTROSE (50%) 50ML SYRG IV ONE (17:30)
[2019-01-12] MEDS ORDERED: SODIUM BICARBONATE 8.4 % INJ 50ML VIAL IV ONE (17:30)
[2019-01-12] MEDS ORDERED: InsuLIN REG 1unit/0.01ml Soln (100units/ml) IV ONE (17:30)
[2019-01-12] MEDS ORDERED: ALBUTEROL SULF 2.5 MG/0.5ML(0.5%) NEB SOLN NEB ONE (17:30)
[2019-01-12] MEDS: LACTULOSE 20Gm/30ML SOLN PO SCH ×3 (18:19→21:59)
--- NOTE | 2019-01-12 19:14 | NUR ---
ENDING NOTE PATIENT SITTING UP IN BED EATING DINNER WITH TWO FAMILY MEMBERS IN THE ROOM. ON ROOM AIR STATING IN THE 98-100%. HEART RATE IS SINUS RHYTHM IN THE 70'S. NO SIGN OF DISTRESS NOTED. REPORT GIVEN TO ALISA VARELA.
--- NOTE | 2019-01-12 19:25 | NUR ---
OPENING SHIFT RECEIVED REPORT FROM DAY SHIFT RN. ASSUMED CARE OF PATIENT. PATIENT IN BED EATING AND WATCHING TV WITH NO SIGNS OR SYMPTOMS OF SOB, PAIN OR DISTRESS. CURRENTLY ON ROOM AIR, 02 SAT - 93%. UPDATED PATIENT ON PLAN OF CARE. REPOSITIONED FOR COMFORT. RIGHT ANTECUBITAL IV - CLEAN/DRY/INTACT. LEFT FISTULA AUSCULTATED - BRUIT/THRILL PRESENT. BED IN LOWEST POSITION, SIDE RAILS UP X2, CALL LIGHT WITHIN REACH. WILL CONTINUE TO MONITOR.
[2019-01-12 19:50] VITALS: BP 112/50
[2019-01-12] MEDS: ATORVASTATIN 20 MG TAB PO SCH (22:07)
[2019-01-13] VITALS (9 sets, daily range): BP systolic 128–167; BP diastolic 52–82
--- NOTE | 2019-01-13 00:46 | NUR ---
ROUNDS PATIENT IN BED SLEEPING WITH NO SIGNS OR SYMPTOMS OF SOB, PAIN OR DISTRESS. CURRENTLY ON ROOM AIR, 02 SAT - 95%. REPOSITIONED FOR COMFORT. BED IN LOWEST POSITION, SIDE RAILS UP X2, CALL LIGHT WITHIN REACH. WILL CONTINUE TO MONITOR.
--- NOTE | 2019-01-13 04:30 | NUR ---
AM CARE PATIENT REFUSED BED BATH AND GOWN CHANGE AT THIS TIME. PARTIAL LINEN CHANGE. REPOSITIONED FOR COMFORT. BED IN LOWEST POSITION, SIDE RIALS UP X2, CALL LIGHT WITHIN REACH. WILL CONTINUE TO MONITOR.
[2019-01-13 06:12] LABS: Basophils # (auto) 0.1 uL; Basophils % (auto) 0.7 % (0.0-2.0); Eosinophils # (auto) 0.1 uL; Eosinophils % (auto) 1.5 % (0.0-7.0); Hematocrit 32.3 % (41.0-53.0); Hemoglobin 11.1 g/dL (13.5-17.5); Lymphocytes # (auto) 1.2 uL; Lymphocytes % (auto) 15.8 % (10.0-50.0); Mean Corpuscular Hemoglobin 32.9 pg (28.0-32.0); Mean Corpuscular Hgb Conc. 34.3 g/dL (32.0-36.0); Monocytes # (auto) 0.8 uL; Monocytes % (auto) 10.3 % (0.0-12.0); Neutrophils # (auto) 5.3 uL; Neutrophils % (auto) 71.7 % (37.0-80.0); Nucleated Red Blood Cells % 0.1 %; Platelet Count (auto) 169 10^3/uL (140-450); Red Blood Cells 3.36 10^6/uL (4.5-5.90); Red Cell Distribution Width 14.9 % (11.8-14.3); White Blood Cell 7.3 10^3/uL (4.4-10.8)
[2019-01-13 06:22] LABS: Anion Gap 16 (5-15); Calcium 6.3 mg/dL (8.5-10.1); Carbon Dioxide 31 mmol/L (21-32); Chloride 91 mmol/L (98-107); Glucose 79 mg/dL (74-106); Potassium 5.4 mmol/L (3.5-5.1); Sodium 138 mmol/L (136-145)
[2019-01-13 06:29] LABS: BUN/Creatinine Ratio 6.5; Blood Urea Nitrogen 62 mg/dL (7-18); GFR African American 7 mL/min; GFR Non-African American 6 mL/min
--- NOTE | 2019-01-13 06:41 | NUR ---
END OF SHIFT PATIENT SITTING AT THE EDGE OF THE BED PERFORMING MORNING CARE WITH CHG WIPES TO THE BODY AND WASH CLOTHS TO THE FACE. GOWN CHANGED. UPDATED PATIENT ON PLAN OF CARE. NO SIGNS OR SYMPTOMS OF SOB, PAIN OR DISTRESS. RIGHT ANTECUBITAL IV - CLEAN/DRY/INTACT. LEFT FISTULA AUSCULTATED - BRUIT/THRILL PRESENT. BED IN LOWEST POSITION, SIDE RAILS UP X2, CALL LIGHT WITHIN REACH. WILL ENDORSE CARE TO DAY SHIFT RN.
[2019-01-13] MEDS: ACCU-CHEK COMFORT CURVE STRIP VI SCH ×3 (07:45→17:06)
[2019-01-13] MEDS: InsuLIN REG 1unit/0.01ml Soln (100units/ml) SC SCH ×3 (07:53→17:00)
--- NOTE | 2019-01-13 08:00 | NUR ---
Opening Shift Note Assumed care of patient, awake and alert. Patient A&Ox4, Patient on the monitor, VS WNL. Patient on room air saturation at 95%. Fistula left arm. Right AC 20G saline locked, patent, clean, dry, intact. No S/S of distress/SOB or pain. Bed locked and in the lowest position, side rails up x2, call light with in reach. Instructed on POC and to call for assist PRN. Will continue to monitor.
[2019-01-13] MEDS: SODIUM ZIRCONIUM CYCL 10 GM PAK PO SCH ×2 (08:02→14:00)
[2019-01-13] MEDS: SEVELAMER 800 MG TAB PO SCH ×3 (08:03→18:32)
[2019-01-13] MEDS: CALCIUM ACETATE 667 MG CAP PO SCH ×3 (08:03→18:32)
--- NOTE | 2019-01-13 08:30 | NUR ---
Patient sitting up in bed eating breakfast independently. Will continue to monitor.
--- NOTE | 2019-01-13 08:50 | NUR ---
Dr. Rodriguez at bedside.
[2019-01-13] MEDS: amLODIPine BESYLATE 5 MG TAB PO SCH (10:00)
--- NOTE | 2019-01-13 10:00 | NUR ---
Medication dosages, usages, and side effects explained to patient. Patient verbalized understanding. Will continue to monitor.
[2019-01-13] MEDS: CLOPIDOGREL BISULFATE 75 MG TAB PO SCH (10:26)
[2019-01-13] MEDS: TERAZOSIN HCL 1 MG CAP PO SCH (10:26)
[2019-01-13] MEDS: RANOLAZINE ER 500 MG TAB PO SCH (10:26)
[2019-01-13] MEDS: DULoxetine HCL 30 MG CAP PO SCH (10:26)
[2019-01-13] MEDS: DOCUSATE SOD 100 MG CAP PO SCH (10:26)
[2019-01-13] MEDS: ASPirin-EC 81 mg tab PO SCH (10:26)
[2019-01-13] MEDS: FAMOTIDINE 20 MG TAB PO SCH (10:26)
--- NOTE | 2019-01-13 11:00 | NUR ---
Patient walked to bathroom steady gait no S/S of pain/SOB or dizziness noted. Patient had small brown BM. Patient back in bed and resting now. Will continue to monitor.
--- NOTE | 2019-01-13 11:30 | NUR ---
Family at bedside.
--- NOTE | 2019-01-13 12:10 | NUR ---
Patient going to room 216A. Report given to Eva MONTOYA. Patient on tele box 39. Will continue to monitor.
--- NOTE | 2019-01-13 12:20 | NUR ---
Dr. Malagon at bedside. New orders to discharge after dialysis.
--- NOTE | 2019-01-13 12:30 | NUR ---
Spoke with Dr. Rodriguez on the phone. Patient is to go to the dialysis center at [address] [address], [place] [address] anytime tomorrow between [id number] to receive samples of new medication Veltassa (Patiromer). Information given to patient.
--- NOTE | 2019-01-13 12:38 | NUR ---
Received reports from [facility] RN, patient is transferred to room via wheelchair. Patient is awake, alert and not in respiratory distress. Moves independently. No complaints of any pain. Oriented to floor policy. Patient is for hemodialysis today and for discharge home after if no problems. Continue to monitor.
--- NOTE | 2019-01-13 15:21 | NUR ---
Hemodialysis started, access on left arm. Continue care.
--- NOTE | 2019-01-13 18:40 | NUR ---
Hemodialysis done. 1.5 liters out.
[2019-01-13] MEDS ORDERED: LABETALOL HCL 5 MG/ML ML 20ML VIAL IV ONE (19:00)
--- NOTE | 2019-01-13 19:01 | NUR ---
BP-167/76, HR-79 post hemodialysis. Paged supervisor aluminum fabrication hospitalist DAVID Calle. Orders received. May give Labetalol 10mg IV now then repeat BP after an hour then send home once stable BP.
--- NOTE | 2019-01-13 20:43 | NUR ---
BP RECHECKED BP 138/68. HEART RATE 76. PATIENT WILL BE DISCHARGED AT THIS TIME.
== END 2019-01-13 20:15 | disposition home or self-care (01) | DRG 314 ==
LOC: EDBD 08:30 → ER 08:32 → TELE 08:33 → OVERFLOW 08:34 → DOU IN ICU 12:11 → TELE-CENTR 01-13 12:39
PROVIDERS: ADMIT Internal Medicine; ATTEND Internal Medicine
PROC: 5A1D70Z Performance of Urinary Filtration, Intermittent, Less than 6 Hours Per Day (ICD-10-PCS; principal; 2019-01-11)
PROC: 5A1D70Z Performance of Urinary Filtration, Intermittent, Less than 6 Hours Per Day (ICD-10-PCS; 2019-01-13)
DX: I95.9 Hypotension, unspecified (principal); N18.6 End stage renal disease; E44.0 Moderate protein-calorie malnutrition; I13.2 Hypertensive heart and chronic kidney disease with heart failure and with stage 5 chronic kidney disease, or end stage renal disease; I44.2 Atrioventricular block, complete; R00.1 Bradycardia, unspecified; E87.5 Hyperkalemia; D63.8 Anemia in other chronic diseases classified elsewhere; E11.22 Type 2 diabetes mellitus with diabetic chronic kidney disease; E78.5 Hyperlipidemia, unspecified; F32.9 Major depressive disorder, single episode, unspecified; I25.10 Atherosclerotic heart disease of native coronary artery without angina pectoris; K21.9 Gastro-esophageal reflux disease without esophagitis; F41.9 Anxiety disorder, unspecified; I50.9 Heart failure, unspecified; Z79.02 Long term (current) use of antithrombotics/antiplatelets; Z87.442 Personal history of urinary calculi; Z91.11 Patient's noncompliance with dietary regimen; Z99.2 Dependence on renal dialysis; Z90.49 Acquired absence of other specified parts of digestive tract; Z95.5 Presence of coronary angioplasty implant and graft; Z79.899 Other long term (current) drug therapy; I25.2 Old myocardial infarction; Z82.49 Family history of ischemic heart disease and other diseases of the circulatory system; Z83.3 Family history of diabetes mellitus; Z82.3 Family history of stroke; Z68.30 Body mass index [BMI] 30.0-30.9, adult
CPT/HCPCS: 36415; 71045; 80048; 80053; 82962; 83735; 84100; 84132; 84484; 85025; 85610; 85730; 86850; 86900; 86901; 87081; 90935; 93005; 94644; 94645; 96365; 96375; 99291; C1751; G0378; J0610; J1642; J1815; J2250; J2405

== ENCOUNTER 2019-04-19 05:36 | Inpatient (IN) | payer MEDICARE, MEDICAID ==
[~2019-04-19] VITALS: Ht 165.1 cm; Wt 70.9 kg
[~2019-04-19 05:36] MED LIST changes: -AMLO5TAB13 PO; +AMLO5TAB15 PO
[2019-04-19] MEDS ORDERED: cloNIDine HCL 0.1 MG TAB PO ONE (07:15)
[2019-04-19] MEDS ORDERED: ASPirin 81 mg TAB PO ONE (07:15)
[2019-04-19 07:21] LABS: Basophils # (auto) 0.1 uL; Basophils % (auto) 1.2 % (0.0-2.0); Eosinophils # (auto) 0.1 uL; Eosinophils % (auto) 1.1 % (0.0-7.0); Hematocrit 29.7 % (41.0-53.0); Hemoglobin 9.9 g/dL (13.5-17.5); Lymphocytes % (auto) 8.9 % (10.0-50.0); Mean Corpuscular Hemoglobin 32.4 pg (28.0-32.0); Mean Corpuscular Hgb Conc. 33.2 g/dL (32.0-36.0); Mean Corpuscular Volume 97.7 fL (80.0-100.0); Monocytes # (auto) 0.7 uL; Monocytes % (auto) 5.9 % (0.0-12.0); Neutrophils # (auto) 9.3 uL; Neutrophils % (auto) 82.9 % (37.0-80.0); Nucleated Red Blood Cells % 0.1 %; Platelet Count (auto) 202 10^3/uL (140-450); Red Blood Cells 3.04 10^6/uL (4.5-5.90); Red Cell Distribution Width 16.7 % (11.8-14.3); White Blood Cell 11.2 10^3/uL (4.4-10.8)
[2019-04-19 07:55] LABS: Albumin 3.9 g/dL (3.4-5.0); Calcium 7.9 mg/dL (8.5-10.1)
[2019-04-19 08:01] LABS: BUN/Creatinine Ratio 8.8; Bilirubin, Total 0.5 mg/dL (0.2-1.0); Total Protein 8.1 g/dL (6.4-8.2)
[2019-04-19 08:09] LABS: Potassium 7.5 mmol/L (3.5-5.1)
[2019-04-19] MEDS ORDERED: SODIUM ZIRCONIUM CYCL 10 GM PAK PO ONE ×2 (08:45→09:15)
[2019-04-19] MEDS ORDERED: DEXTROSE (50%) 50ML SYRG IV ONE ×2 (08:45→09:15)
[2019-04-19] MEDS ORDERED: CALCIUM GLUC 4.65meq/50ml D5AE 50 ML IV ONE ×2 (08:45→09:15)
[2019-04-19] MEDS ORDERED: InsuLIN REG 1unit/0.01ml Soln (100units/ml) IV ONE ×2 (08:45→09:15)
[2019-04-19] MEDS ORDERED: ALBUTEROL SULF 2.5 MG/0.5ML(0.5%) NEB SOLN NEB STA (09:07)
[2019-04-19] MEDS ORDERED: ENOXAPARIN SOD 100 MG/1 ML SYRINGE SC ONE (09:15)
[2019-04-19] MEDS ORDERED: SODIUM BICARBONATE 8.4% INJ 50ML SYRINGE IV ONE (09:15)
[2019-04-19] MEDS ORDERED: SODIUM CHL 0.9% 1000 ML BAG XX ONE (10:30)
[2019-04-19] MEDS ORDERED: VANCOMYCIN PER PHARMACY 0 MG IV SCH (11:15)
[2019-04-19] MEDS ORDERED: MORPHINE SULF INJ 2 MG/ML SYRINGE 1ML IV PRN (11:15)
[2019-04-19] MEDS ORDERED: NITROGLYCERIN 0.4 MG SL TAB SL PRN (11:15)
[2019-04-19] MEDS ORDERED: DEXTROSE (50%) 50ML SYRG IV PRN (11:45)
[2019-04-19] MEDS: IPRATROPIUM BROM 0.5 MG/2.5ML INH SOL NEB SCH ×2 (12:09→18:59)
[2019-04-19] MEDS: ALBUTEROL SULF 2.5 MG/0.5ML(0.5%) NEB SOLN NEB SCH ×2 (12:09→18:59)
[2019-04-19] MEDS ORDERED: VANCOMYCIN 1GM/250ML 250 ML IV ONE (13:00)
[2019-04-19 14:06] LABS: Calcium 7.6 mg/dL (8.5-10.1)
[2019-04-19] MEDS: ACCU-CHEK COMFORT CURVE STRIP VI SCH ×2 (17:06→21:59)
[2019-04-19] MEDS: InsuLIN REG 1unit/0.01ml Soln (100units/ml) SC SCH ×2 (17:11→22:42)
--- NOTE | 2019-04-19 18:00 | NUR ---
Telemetry admit from ER [facility] admitted to Telemetry unit after SBAR received. Patient oriented to JONO ORO RN, unit, room, bed, and unit policies regarding patient care and visiting hours. Patient now on continuous telemetry monitoring, tele box # 53 and telemetry reading on arrival to unit is SINUS RHYTHM. Patient placed on bedside oxygen, weighed by bedscale and encouraged to call if they need something. All questions and concerns addressed, patient verbalized understanding.
[2019-04-19 18:13] VITALS: BP 149/55
[2019-04-19 19:09] VITALS: BP 149/55
[2019-04-19] MEDS: PRAMIPEXOLE DIHYDROCHLORIDE MO 0.25 MG TAB PO SCH (19:12)
--- NOTE | 2019-04-19 19:31 | NUR ---
Opening Shift Note Assumed care of patient. Received report from day shift nurse, Parish. patient is awake, alert and orientated x 4. No S/S of distress/SOB or pain. Patient has slight hand tremors. Bed is in lowest position with side rails up x 2. Bed brakes are locked and alarmed is on. Hob is 30 degrees and call light is with in reach. Instructed on POC and to call for assist PRN, will continue to monitor for changes Q1hr and PRN.
[2019-04-19 20:00] VITALS: BP 157/54
[2019-04-19] MEDS ORDERED: EPOETIN ALFA 10,000 UNIT/1 ML VIAL SC ONE (21:00)
[2019-04-19] MEDS: METOPROLOL TARTRATE 25 MG TAB PO SCH (21:59)
[2019-04-19] MEDS: RANOLAZINE ER 500 MG TAB PO SCH (21:59)
[2019-04-19] MEDS: FUROSEMIDE 40 MG TAB PO SCH (21:59)
[2019-04-19 22:00] VITALS: BP 149/64
[2019-04-19] MEDS ORDERED: FAMOTIDINE (10MG/ML) 2ML VL IV SCH (22:00)
--- NOTE | 2019-04-20 00:01 | NUR ---
IV insertion IV access obtained, via clean sterile technique by inserting 22 gauge catheter at right forearm after 5 attempts. IV secured properly. No trauma to site. Patient tolerated procedure well.
--- NOTE | 2019-04-20 00:05 | NUR ---
IV removal IV on right ac DC'd with sterile technique, catheter fully intact. Pressure dressing applied to site. Patient tolerated procedure well.
[2019-04-20 05:00] VITALS: BP 149/80
[2019-04-20] MEDS: ACCU-CHEK COMFORT CURVE STRIP VI SCH ×4 (06:14→21:30)
[2019-04-20] MEDS: InsuLIN REG 1unit/0.01ml Soln (100units/ml) SC SCH ×4 (06:14→21:30)
[2019-04-20 06:29] LABS: Albumin 3.2 g/dL (3.4-5.0); Calcium 7.1 mg/dL (8.5-10.1)
[2019-04-20 06:35] LABS: BUN/Creatinine Ratio 6.1; Bilirubin, Total 0.6 mg/dL (0.2-1.0); Total Protein 6.8 g/dL (6.4-8.2)
[2019-04-20 06:36] LABS: Potassium 6.3 mmol/L (3.5-5.1)
--- NOTE | 2019-04-20 06:36 | NUR ---
CRITICAL LAB VALUE POTASSIUM 6.3. HOSPITALIST PAGED.
[2019-04-20] MEDS: ALBUTEROL SULF 2.5 MG/0.5ML(0.5%) NEB SOLN NEB SCH ×3 (06:56→18:23)
[2019-04-20] MEDS: IPRATROPIUM BROM 0.5 MG/2.5ML INH SOL NEB SCH ×3 (06:56→18:23)
--- NOTE | 2019-04-20 07:21 | NUR ---
rounds no call back from hospitalist, paged twice for critical lab value. Will endorse to day shift.
--- NOTE | 2019-04-20 07:40 | NUR ---
closing notes pt exhibit no cardiac arrhythmia nor weakness nor chest pain at this time. endorsed care to day shift nurse, Greg.
[2019-04-20 09:00] VITALS: BP 143/60
[2019-04-20] MEDS: FAMOTIDINE (10MG/ML) 2ML VL IV SCH (09:43)
[2019-04-20] MEDS: cefTRIAXone 1GM/50ML D5W 50 ML IV SCH (09:43)
[2019-04-20] MEDS: CLOPIDOGREL BISULFATE 75 MG TAB PO SCH (09:44)
[2019-04-20] MEDS: FUROSEMIDE 40 MG TAB PO SCH ×2 (09:45→21:30)
[2019-04-20] MEDS: amLODIPine BESYLATE 5 MG TAB PO SCH (09:45)
[2019-04-20] MEDS: RANOLAZINE ER 500 MG TAB PO SCH ×2 (09:56→21:30)
[2019-04-20] MEDS: METOPROLOL TARTRATE 25 MG TAB PO SCH ×2 (09:56→21:30)
[2019-04-20] MEDS ORDERED: ASPirin 81 mg TAB PO SCH (10:00)
[2019-04-20 13:16] VITALS: BP 161/79
--- NOTE | 2019-04-20 14:18 | NUR ---
NOTIFIED DR ALDANA VIA TELEPHONE OF PT POTASSIUM 6.3.
[2019-04-20] MEDS ORDERED: SODIUM ZIRCONIUM CYCL 10 GM PAK PO ONE ×2 (15:15→16:15)
--- NOTE | 2019-04-20 16:06 | NUR ---
DR NEHA CRAIG.
[2019-04-20 16:53] VITALS: BP 151/64
[2019-04-20] MEDS: PRAMIPEXOLE DIHYDROCHLORIDE MO 0.25 MG TAB PO SCH (18:42)
[2019-04-20] MEDS: ACETAMINOPHEN 500 MG TAB PO PRN (18:43)
--- NOTE | 2019-04-20 20:15 | NUR ---
Opening Shift Note: A&Ox4, resting in bed. Bulgarian speaking only, currently on 4LO2 via NC that he does not wear at home; pain level 0/10; and at baseline uses a cane prn, currently ambulates independently without assistive devices. Bed locked in lowest position, side rails up x2, and call light within reach. IV 20 g in right AC/forearm IID inserted on 04/20/19. Dialysis MWF; access is a left lower arm AV fistula. Skin intact. POC discussed and questions answered. Will continue to round prn.
--- NOTE | 2019-04-20 21:30 | NUR ---
Rapid Flu sample sent to lab via [employer] system.
[2019-04-20 22:00] VITALS: BP 146/67
[2019-04-21 05:00] VITALS: BP 137/62
[2019-04-21] MEDS: InsuLIN REG 1unit/0.01ml Soln (100units/ml) SC SCH ×4 (06:03→21:03)
[2019-04-21] MEDS: ACCU-CHEK COMFORT CURVE STRIP VI SCH ×4 (06:03→21:03)
[2019-04-21] MEDS: IPRATROPIUM BROM 0.5 MG/2.5ML INH SOL NEB SCH ×3 (07:00→18:46)
[2019-04-21] MEDS: ALBUTEROL SULF 2.5 MG/0.5ML(0.5%) NEB SOLN NEB SCH ×3 (07:00→18:46)
[2019-04-21] MEDS: cefTRIAXone 1GM/50ML D5W 50 ML IV SCH (09:00)
[2019-04-21 09:12] VITALS: BP 152/74
[2019-04-21] MEDS: FAMOTIDINE (10MG/ML) 2ML VL IV SCH (10:00)
[2019-04-21] MEDS: amLODIPine BESYLATE 5 MG TAB PO SCH (10:00)
[2019-04-21] MEDS: METOPROLOL TARTRATE 25 MG TAB PO SCH ×2 (10:00→21:02)
[2019-04-21] MEDS: FUROSEMIDE 40 MG TAB PO SCH ×2 (10:00→21:02)
[2019-04-21] MEDS: CLOPIDOGREL BISULFATE 75 MG TAB PO SCH (10:00)
[2019-04-21] MEDS: RANOLAZINE ER 500 MG TAB PO SCH ×2 (10:00→21:02)
--- NOTE | 2019-04-21 12:20 | NUR ---
ALL AM MEDS HELD D/T PT RECEIVING DIALYSIS.
[2019-04-21 15:01] VITALS: BP_SYST 158; BP_SYST 172; BP_SYST 173; BP_DIAS 69; BP_DIAS 72; BP_DIAS 73
--- NOTE | 2019-04-21 15:05 | NUR ---
Nutrition Assessment Notes please see attached link for complete assessment Est. Needs BW 72 [id number] kcal (30-33 kcal/kgBW), 86-100 gms pro (1.2-1.4 gms/kgBW r/t HD). Will continue to monitor pertinent labs and reassess nutrient need prn Addendum: 04/21/19 at [address] Amended: Links added.
[2019-04-21] MEDS ORDERED: VANCOMYCIN 1GM/250ML 250 ML IV ONE (16:00)
[2019-04-21] MEDS: PRAMIPEXOLE DIHYDROCHLORIDE MO 0.25 MG TAB PO SCH (17:38)
--- NOTE | 2019-04-21 17:59 | NUR ---
PT HAD DIALYSIS IN ROOM TODAY, REMOVED 3 LITERS.
--- NOTE | 2019-04-21 18:48 | NUR ---
RT NOTE PT WAS SEEN BY RT FOR HHN TX. PT TOLERATES WELL VIA MOUTHPIECE. NO ADVERSE REACTION NOTED. CONT ORDERED. POX 96% Addendum: 04/21/19 at 1849 by Tianna Nowak RT Amended: Links added.
--- NOTE | 2019-04-21 20:15 | NUR ---
Opening Shift Note: A&Ox4, resting in bed. Icelandic speaking only, currently on 3LO2 via NC that he does not wear at home; pain level 0/10; and at baseline uses a cane prn, currently ambulates independently without assistive devices. Bed locked in lowest position, side rails up x2, and call light within reach. IV 20 g in right AC/forearm IID inserted on 04/20/19. Dialysis MWF; access is a left lower arm AV fistula; last dialysis 04/21/19 with 3L removed. Skin intact. POC discussed and questions answered. Will continue to round prn.
--- NOTE | 2019-04-21 21:47 | NUR ---
Orthostatic BPs: Lying down: 148/63 Sittin/69 Standin/69
[2019-04-21 22:00] VITALS: BP_SYST 142; BP_SYST 146; BP_SYST 148; BP_DIAS 63; BP_DIAS 69
[2019-04-22 05:00] VITALS: BP_SYST 145; BP_SYST 155; BP_SYST 158; BP_DIAS 66; BP_DIAS 69; BP_DIAS 72
[2019-04-22 05:51] LABS: Basophils # (auto) 0.1 uL; Basophils % (auto) 1.2 % (0.0-2.0); Eosinophils # (auto) 0.1 uL; Eosinophils % (auto) 2.6 % (0.0-7.0); Hematocrit 26.1 % (41.0-53.0); Hemoglobin 8.8 g/dL (13.5-17.5); Lymphocytes # (auto) 0.8 uL; Lymphocytes % (auto) 15.9 % (10.0-50.0); Mean Corpuscular Hemoglobin 33.2 pg (28.0-32.0); Mean Corpuscular Hgb Conc. 33.7 g/dL (32.0-36.0); Mean Corpuscular Volume 98.5 fL (80.0-100.0); Monocytes # (auto) 0.5 uL; Monocytes % (auto) 10.5 % (0.0-12.0); Neutrophils # (auto) 3.4 uL; Neutrophils % (auto) 69.8 % (37.0-80.0); Nucleated Red Blood Cells % 0.2 %; Platelet Count (auto) 157 10^3/uL (140-450); Red Blood Cells 2.65 10^6/uL (4.5-5.90); Red Cell Distribution Width 15.5 % (11.8-14.3); White Blood Cell 4.9 10^3/uL (4.4-10.8)
[2019-04-22] MEDS: InsuLIN REG 1unit/0.01ml Soln (100units/ml) SC SCH ×4 (05:56→22:20)
[2019-04-22] MEDS: ACCU-CHEK COMFORT CURVE STRIP VI SCH ×4 (05:56→22:20)
[2019-04-22 06:14] LABS: BUN/Creatinine Ratio 6.2; Calcium 7.3 mg/dL (8.5-10.1); Potassium 4.9 mmol/L (3.5-5.1)
[2019-04-22] MEDS: IPRATROPIUM BROM 0.5 MG/2.5ML INH SOL NEB SCH ×3 (06:31→18:51)
[2019-04-22] MEDS: ALBUTEROL SULF 2.5 MG/0.5ML(0.5%) NEB SOLN NEB SCH ×3 (06:32→18:51)
[2019-04-22] MEDS: cefTRIAXone 1GM/50ML D5W 50 ML IV SCH (08:48)
[2019-04-22 09:00] VITALS: BP_SYST 152; BP_SYST 160; BP_SYST 166; BP_DIAS 69; BP_DIAS 73; BP_DIAS 74
[2019-04-22] MEDS: CLOPIDOGREL BISULFATE 75 MG TAB PO SCH (09:41)
[2019-04-22] MEDS: METOPROLOL TARTRATE 25 MG TAB PO SCH ×2 (09:41→22:16)
[2019-04-22] MEDS: RANOLAZINE ER 500 MG TAB PO SCH ×2 (09:41→22:15)
[2019-04-22] MEDS: FAMOTIDINE (10MG/ML) 2ML VL IV SCH (09:41)
[2019-04-22] MEDS: LISINOPRIL 10 MG TAB PO SCH (09:42)
[2019-04-22] MEDS: amLODIPine BESYLATE 5 MG TAB PO SCH (09:43)
[2019-04-22] MEDS: FUROSEMIDE 40 MG TAB PO SCH ×2 (09:43→22:16)
[2019-04-22] MEDS: ACETAMINOPHEN 500 MG TAB PO PRN (11:46)
--- NOTE | 2019-04-22 16:26 | NUR ---
PT IV CAME OUT, PER DR SOLOMON PT MAY POSSIBLY BE DISCHARGED HOME. TOLD DR SOLOMON THAT PT HAS IV ABX DUE, AND ALSO THAT DR RODRIGUEZ HAS BEEN CONSULTED AND HASNT SEEN THE PATIENT YET. PER DR SOLOMON, ABX COULD BE CHANGED TO PO, AND HE WOULD SPEAK TO DR. RODRIGUEZ REGARDING CONSULT. NO FURTHER ORDERS NOTED AT THIS TIME,
[2019-04-22 17:00] VITALS: BP 130/80
[2019-04-22 17:50] VITALS: BP 153/75
[2019-04-22] MEDS: PRAMIPEXOLE DIHYDROCHLORIDE MO 0.25 MG TAB PO SCH (18:22)
--- NOTE | 2019-04-22 19:30 | NUR ---
Opening Shift Note Assumed care of patient, alert and oriented x 4. No S/S of distress/SOB or pain. On 3L oxygen via nasal cannula. Ambulatory to toilet. No IV access. Per dayshift RN, Dr Kuhn was notified and said patient to be discharged tomorrow, no IV access needed. Bed in lowest locked position, side rails up x 2, call light within reach. Instructed on POC and to call for assist PRN, will continue to monitor for changes Q1hr and PRN.
[2019-04-22 20:00] VITALS: BP 143/66
[2019-04-22 22:00] VITALS: BP 143/66
[2019-04-23 05:00] VITALS: BP 137/68
[2019-04-23] MEDS: ACCU-CHEK COMFORT CURVE STRIP VI SCH ×2 (06:31→11:43)
[2019-04-23] MEDS: InsuLIN REG 1unit/0.01ml Soln (100units/ml) SC SCH ×2 (06:31→11:30)
[2019-04-23] MEDS: IPRATROPIUM BROM 0.5 MG/2.5ML INH SOL NEB SCH (06:51)
[2019-04-23] MEDS: ALBUTEROL SULF 2.5 MG/0.5ML(0.5%) NEB SOLN NEB SCH (06:52)
[2019-04-23 07:31] VITALS: BP 143/66
[2019-04-23 09:00] VITALS: BP 153/67
[2019-04-23] MEDS: cefTRIAXone 1GM/50ML D5W 50 ML IV SCH (09:00)
[2019-04-23] MEDS: FAMOTIDINE (10MG/ML) 2ML VL IV SCH (09:26)
--- NOTE | 2019-04-23 09:28 | NUR ---
PAGED DR SOLOMON FOR DIALYSIS ORDERS FOR TODAY. PATIENT SAID HE IS GOING HOME TODAY BUT MISSED HIS CHAIR TIME AT 9 A.M. AND WANTS DIALYSIS BEFORE HE GOES HOME TODAY.
[2019-04-23] MEDS: FUROSEMIDE 40 MG TAB PO SCH (09:36)
[2019-04-23] MEDS: METOPROLOL TARTRATE 25 MG TAB PO SCH (09:37)
[2019-04-23] MEDS: amLODIPine BESYLATE 5 MG TAB PO SCH (09:37)
[2019-04-23] MEDS: CLOPIDOGREL BISULFATE 75 MG TAB PO SCH (09:38)
[2019-04-23] MEDS: LISINOPRIL 10 MG TAB PO SCH (09:38)
[2019-04-23] MEDS: RANOLAZINE ER 500 MG TAB PO SCH (09:38)
--- NOTE | 2019-04-23 09:45 | NUR ---
SPOKE TO DR SOLOMON ON THE PHONE HE SAID HE WOULD SET UP A CHAIR TIME OUT PATIENT FOR TODAY. HE WOULD CALL ME BACK WITH THE CHAIR TIME.
[2019-04-23 09:52] VITALS: BP 140/62
--- NOTE | 2019-04-23 11:08 | NUR ---
CALLED DR STUART OFFICE TO SEE ABOUT THE CHAIR TIME. I WAS TRANSFERRED TO [facility] SPOKE TO JHONNY SHE SAID HIS CHAIR IS READY WHEN EVER HE GETS HERE. PATIENT CALLED HIS SON FOR A RIDE.
== END 2019-04-23 12:43 | disposition home or self-care (01) | DRG 291 ==
LOC: EDBD 05:36 → ER 05:36 → OVERFLOW 05:37 → TELE-WESTW 17:58
PROVIDERS: ADMIT Nurse Practitioner Acute Care; ATTEND Internal Medicine
PROC: 5A1D70Z Performance of Urinary Filtration, Intermittent, Less than 6 Hours Per Day (ICD-10-PCS; principal; 2019-04-19)
PROC: 5A1D70Z Performance of Urinary Filtration, Intermittent, Less than 6 Hours Per Day (ICD-10-PCS; 2019-04-21)
DX: I13.2 Hypertensive heart and chronic kidney disease with heart failure and with stage 5 chronic kidney disease, or end stage renal disease (principal); I50.43 Acute on chronic combined systolic (congestive) and diastolic (congestive) heart failure; N18.6 End stage renal disease; I25.10 Atherosclerotic heart disease of native coronary artery without angina pectoris; R09.02 Hypoxemia; K21.9 Gastro-esophageal reflux disease without esophagitis; E87.5 Hyperkalemia; E78.5 Hyperlipidemia, unspecified; D63.8 Anemia in other chronic diseases classified elsewhere; D72.829 Elevated white blood cell count, unspecified; E11.22 Type 2 diabetes mellitus with diabetic chronic kidney disease; F41.9 Anxiety disorder, unspecified; R00.1 Bradycardia, unspecified; E78.00 Pure hypercholesterolemia, unspecified; E11.42 Type 2 diabetes mellitus with diabetic polyneuropathy; Z99.2 Dependence on renal dialysis; I25.2 Old myocardial infarction; Z87.442 Personal history of urinary calculi; Z90.49 Acquired absence of other specified parts of digestive tract; Z95.5 Presence of coronary angioplasty implant and graft; Z79.84 Long term (current) use of oral hypoglycemic drugs; Z79.02 Long term (current) use of antithrombotics/antiplatelets; Z79.899 Other long term (current) drug therapy; Z82.49 Family history of ischemic heart disease and other diseases of the circulatory system; Z83.3 Family history of diabetes mellitus; Z82.3 Family history of stroke
CPT/HCPCS: 36415; 70551; 71045; 80048; 80053; 80202; 82962; 83880; 84484; 85025; 87040; 87070; 87081; 87205; 87804; 90935; 93005; 93306; 94640; G0378; J0610; J0696; J0885; J1815; J3490

== ENCOUNTER 2019-05-02 21:19 | Inpatient (IN) | payer MEDICARE, MEDICAID ==
[~2019-05-02] VITALS: Ht 160 cm; Wt 65.1 kg
[2019-05-02 22:12] LABS: Basophils # (auto) 0.1 uL; Basophils % (auto) 1.1 % (0.0-2.0); Eosinophils # (auto) 0.2 uL; Eosinophils % (auto) 1.9 % (0.0-7.0); Hematocrit 32.8 % (41.0-53.0); Hemoglobin 10.8 g/dL (13.5-17.5); Lymphocytes # (auto) 1.6 uL; Lymphocytes % (auto) 18.7 % (10.0-50.0); Mean Corpuscular Hemoglobin 32.3 pg (28.0-32.0); Mean Corpuscular Volume 97.7 fL (80.0-100.0); Monocytes # (auto) 0.6 uL; Monocytes % (auto) 7.6 % (0.0-12.0); Neutrophils % (auto) 70.7 % (37.0-80.0); Nucleated Red Blood Cells % 0.1 %; Platelet Count (auto) 276 10^3/uL (140-450); Red Blood Cells 3.35 10^6/uL (4.5-5.90); Red Cell Distribution Width 15.5 % (11.8-14.3); White Blood Cell 8.4 10^3/uL (4.4-10.8)
[2019-05-02 22:31] LABS: BUN/Creatinine Ratio 8.1; Calcium 7.3 mg/dL (8.5-10.1)
[2019-05-02 22:35] LABS: Bilirubin, Total 0.3 mg/dL (0.2-1.0); Total Protein 7.9 g/dL (6.4-8.2)
[2019-05-02 22:41] LABS: Potassium 6.9 mmol/L (3.5-5.1)
[2019-05-02] MEDS ORDERED: InsuLIN REG 1unit/0.01ml Soln (100units/ml) IV ONE (23:45)
[2019-05-02] MEDS ORDERED: CALCIUM GLUC 4.65meq/50ml D5AE 50 ML IV ONE (23:45)
[2019-05-02] MEDS ORDERED: DEXTROSE (50%) 50ML SYRG IV ONE (23:45)
[2019-05-03] MEDS: SODIUM ZIRCONIUM CYCL 10 GM PAK PO SCH ×3 (00:07→22:48)
[2019-05-03] MEDS ORDERED: hydrALAZINE HCL 25 MG TAB PO SCH (06:00)
[2019-05-03] MEDS ORDERED: DEXTROSE (50%) 50ML SYRG IV PRN (06:00)
[2019-05-03] MEDS ORDERED: TEMAZEPAM 15 MG CAP PO PRN (06:00)
[2019-05-03] MEDS ORDERED: NITROGLYCERIN 0.4 MG SL TAB SL PRN (06:00)
[2019-05-03] MEDS ORDERED: MORPHINE SULF INJ 2 MG/ML SYRINGE 1ML IV PRN (06:00)
[2019-05-03] MEDS: InsuLIN REG 1unit/0.01ml Soln (100units/ml) SC SCH ×4 (06:50→23:12)
[2019-05-03] MEDS: ACCU-CHEK COMFORT CURVE STRIP VI SCH ×4 (06:50→23:13)
[2019-05-03] MEDS: ASPirin 81 mg TAB PO SCH (06:54)
[2019-05-03] MEDS: PANTOPRAZOLE 40 MG TAB PO SCH (06:57)
[2019-05-03] MEDS: ACETAMINOPHEN 325 MG TAB PO PRN ×2 (06:58→17:16)
[2019-05-03] MEDS: CLOPIDOGREL BISULFATE 75 MG TAB PO SCH (07:01)
[2019-05-03] MEDS ORDERED: SEVELAMER 800 MG TAB PO SCH ×2 (08:00→12:30)
[2019-05-03] MEDS ORDERED: LABETALOL HCL 5 MG/ML ML 20ML VIAL IV ONE ×2 (09:00→18:30)
[2019-05-03] MEDS: amLODIPine BESYLATE 5 MG TAB PO SCH (09:54)
[2019-05-03] MEDS: RANOLAZINE ER 500 MG TAB PO SCH ×2 (09:54→22:48)
[2019-05-03] MEDS ORDERED: METOPROLOL TARTRATE 25 MG TAB PO SCH (10:00)
[2019-05-03] MEDS ORDERED: LOSARTAN POTASSIUM 50 MG TAB PO SCH (10:00)
[2019-05-03] MEDS ORDERED: SODIUM CHL 0.9% 1000 ML BAG XX ONE (12:30)
[2019-05-03] MEDS ORDERED: ALBUTEROL SULF 2.5 MG/0.5ML(0.5%) NEB SOLN NEB ONE (12:45)
[2019-05-03] MEDS: SODIUM BICARBONATE 8.4 % INJ 50ML VIAL IV ONE ×2 (12:58→14:00)
[2019-05-03] MEDS: DEXTROSE (50%) 50ML SYRG IV ONE ×2 (12:58→14:00)
[2019-05-03] MEDS: InsuLIN REG 1unit/0.01ml Soln (100units/ml) IV ONE ×2 (12:59→14:00)
[2019-05-03] MEDS: hydrALAZINE HCL 25 MG TAB PO SCH ×3 (12:59→21:17)
[2019-05-03] MEDS ORDERED: METO-158 PO (13:25)
[2019-05-03] MEDS ORDERED: CITA10TA70 PO (13:25)
[2019-05-03] MEDS ORDERED: ALPR0.25 PO (13:26)
[2019-05-03] MEDS ORDERED: RANO500T2 PO (13:26)
[2019-05-03] MEDS ORDERED: CALC667C5 PO (13:26)
[2019-05-03] MEDS: ONDANSETRON HCL 4 MG/2 ML VIAL IV PRN (16:01)
[2019-05-03 18:11] VITALS: BP 187/74
[2019-05-03] MEDS: CALCIUM ACETATE 667 MG CAP PO SCH (18:31)
[2019-05-03] MEDS ORDERED: LABETALOL HCL 5 MG/ML ML 20ML VIAL IV PRN (18:45)
[2019-05-03] MEDS ORDERED: EPOETIN ALFA 4,000 UNIT/ML VL SC ONE (21:00)
[2019-05-03] MEDS: ATORVASTATIN 20 MG TAB PO SCH (21:18)
[2019-05-03 21:55] VITALS: BP 127/68
[2019-05-03 22:00] VITALS: BP 127/60
--- NOTE | 2019-05-03 22:15 | NUR ---
Telemetry admit from ER Patient admitted to Telemetry unit and oriented to primary RN, unit, room, bed, and unit policies regarding patient care and visiting hours. Patient now on continuous telemetry monitoring, tele box # 29 and telemetry reading on arrival to unit is sinus rhythm in the 80s. Patient placed on bedside oxygen at 3 l/min NC, weighed by bedscale and encouraged to call if they need something. All questions and concerns addressed, patient verbalized understanding. Bed is in lowest position and locked. Call light within reach. Board updated.
[2019-05-03] MEDS: METOPROLOL TARTRATE 50 MG TAB PO SCH (22:48)
[2019-05-04] MEDS ORDERED: ATOR20TA PO (01:12)
[2019-05-04] MEDS ORDERED: PATI1POW3 PO (01:12)
[2019-05-04 04:50] VITALS: BP 110/47
[2019-05-04] MEDS ORDERED: INFLUENZA QUAD 2019-2020 0.5ml SYRG IM ONE (06:00)
[2019-05-04] MEDS: hydrALAZINE HCL 25 MG TAB PO SCH ×4 (06:00→22:09)
[2019-05-04] MEDS: ACCU-CHEK COMFORT CURVE STRIP VI SCH ×3 (06:28→17:16)
[2019-05-04] MEDS: InsuLIN REG 1unit/0.01ml Soln (100units/ml) SC SCH ×3 (06:28→17:16)
[2019-05-04] MEDS: SODIUM ZIRCONIUM CYCL 10 GM PAK PO SCH ×2 (06:28→14:18)
--- NOTE | 2019-05-04 06:32 | NUR ---
Holding Hydralazine because patient is scheduled to receive Lokelma and cannot take medication at the same time. BP is 110/47.
[2019-05-04] MEDS: CALCIUM ACETATE 667 MG CAP PO SCH ×3 (08:00→18:07)
[2019-05-04 08:37] LABS: Basophils # (auto) 0.1 uL; Basophils % (auto) 0.9 % (0.0-2.0); Eosinophils # (auto) 0 uL; Eosinophils % (auto) 0.4 % (0.0-7.0); Hematocrit 28.2 % (41.0-53.0); Hemoglobin 9.3 g/dL (13.5-17.5); Lymphocytes # (auto) 0.8 uL; Mean Corpuscular Hemoglobin 32.7 pg (28.0-32.0); Mean Corpuscular Hgb Conc. 33.1 g/dL (32.0-36.0); Mean Corpuscular Volume 98.8 fL (80.0-100.0); Monocytes # (auto) 0.7 uL; Neutrophils # (auto) 7.3 uL; Neutrophils % (auto) 81.7 % (37.0-80.0); Platelet Count (auto) 259 10^3/uL (140-450); Red Blood Cells 2.85 10^6/uL (4.5-5.90); White Blood Cell 8.9 10^3/uL (4.4-10.8)
[2019-05-04 08:55] LABS: Albumin 3.2 g/dL (3.4-5.0); Calcium 7.1 mg/dL (8.5-10.1); Potassium 5.5 mmol/L (3.5-5.1)
[2019-05-04 08:59] LABS: BUN/Creatinine Ratio 6.1; Bilirubin, Total 0.5 mg/dL (0.2-1.0); Total Protein 6.9 g/dL (6.4-8.2)
[2019-05-04 09:00] VITALS: BP 123/63
[2019-05-04] MEDS: PANTOPRAZOLE 40 MG TAB PO SCH (09:56)
[2019-05-04] MEDS: amLODIPine BESYLATE 5 MG TAB PO SCH ×2 (09:56→12:07)
[2019-05-04] MEDS: ASPirin 81 mg TAB PO SCH (09:56)
[2019-05-04] MEDS: CLOPIDOGREL BISULFATE 75 MG TAB PO SCH (09:56)
[2019-05-04 09:57] VITALS: BP 183/77
[2019-05-04] MEDS: METOPROLOL TARTRATE 50 MG TAB PO SCH ×2 (09:57→22:11)
[2019-05-04] MEDS: RANOLAZINE ER 500 MG TAB PO SCH ×2 (09:57→22:10)
[2019-05-04 12:43] LABS: Phosphorus 3.3 mg/dL (2.5-4.90); Uric Acid 4.5 mg/dL (3.5-7.2)
[2019-05-04 13:00] VITALS: BP 155/65
[2019-05-04 16:47] VITALS: BP 114/52
--- NOTE | 2019-05-04 19:22 | NUR ---
Opening Shift Note Assumed care of patient, awake and alert x 4. No S/S of distress/SOB. Bed is in lowest position and locked. Call light within reach. Board updated. Tele box number matches monitor and leads are in correct placement. Instructed on POC and to call for assist PRN, will continue to monitor for changes Q1hr and PRN.
[2019-05-04 22:00] VITALS: BP 125/56
[2019-05-04] MEDS: ATORVASTATIN 20 MG TAB PO SCH (22:10)
[2019-05-05] MEDS ORDERED: SODIUM ZIRCONIUM CYCL 10 GM PAK PO ONE (00:15)
[2019-05-05] MEDS: InsuLIN REG 1unit/0.01ml Soln (100units/ml) SC SCH ×4 (00:18→17:43)
[2019-05-05] MEDS: ACCU-CHEK COMFORT CURVE STRIP VI SCH ×4 (00:19→17:43)
[2019-05-05] MEDS: hydrALAZINE HCL 25 MG TAB PO SCH ×2 (06:00→15:07)
[2019-05-05] MEDS: ONDANSETRON HCL 4 MG/2 ML VIAL IV PRN (06:18)
--- NOTE | 2019-05-05 06:25 | NUR ---
Holding Hydralazine pending dialysis per medication order.
[2019-05-05 06:48] VITALS: BP 130/50
[2019-05-05] MEDS: CALCIUM ACETATE 667 MG CAP PO SCH ×3 (08:11→18:12)
[2019-05-05 09:00] VITALS: BP 146/75
[2019-05-05] MEDS: amLODIPine BESYLATE 5 MG TAB PO SCH (09:36)
[2019-05-05] MEDS: METOPROLOL TARTRATE 50 MG TAB PO SCH ×2 (09:36→21:33)
[2019-05-05] MEDS: RANOLAZINE ER 500 MG TAB PO SCH ×2 (09:37→21:33)
[2019-05-05] MEDS: CLOPIDOGREL BISULFATE 75 MG TAB PO SCH (09:45)
[2019-05-05] MEDS: ASPirin 81 mg TAB PO SCH (09:45)
[2019-05-05] MEDS: PANTOPRAZOLE 40 MG TAB PO SCH (09:45)
[2019-05-05 13:00] VITALS: BP 141/55
[2019-05-05] MEDS: ACETAMINOPHEN 325 MG TAB PO PRN (13:24)
[2019-05-05 17:00] VITALS: BP 136/58
[2019-05-05] MEDS ORDERED: SODIUM CHL 0.9% 1000 ML BAG XX ONE (17:00)
--- NOTE | 2019-05-05 18:13 | NUR ---
PT HAD DIALYSIS TODAY, VS REMAINED STABLE THROUGHOUT. NO BLEEDING NOTED AT SITE.
--- NOTE | 2019-05-05 19:40 | NUR ---
Opening Shift Note Assumed care of patient, awake and alert, [place] Islander speaking and can understand a little Welsh. No S/S of distress/SOB or pain. Instructed on POC and to call for assist PRN, patient verbalized understanding, call light within reach, will continue to monitor for changes Q1hr and PRN.
[2019-05-05] MEDS: ATORVASTATIN 20 MG TAB PO SCH (21:33)
[2019-05-05 22:42] VITALS: BP 118/61
[2019-05-06] MEDS: ACCU-CHEK COMFORT CURVE STRIP VI SCH ×5 (00:02→22:37)
[2019-05-06] MEDS: hydrALAZINE HCL 25 MG TAB PO SCH ×4 (00:03→21:45)
[2019-05-06 05:00] VITALS: BP 142/52
--- NOTE | 2019-05-06 05:50 | NUR ---
IV on LAC out, removed with catheter intact, patient tolerated well IV insertion IV access obtained, via clean sterile technique by inserting 22 gauge catheter at LH after [] attempt(s). IV secured properly. No trauma to site. Patient tolerated well. NOTE: [] Addendum: 05/06/19 at 0633 by Tea Broussard RN RN Wrong IV site. IV was on the Right AC that was removed and reinserted a new one on Right Hand
[2019-05-06] MEDS: InsuLIN REG 1unit/0.01ml Soln (100units/ml) SC SCH ×5 (06:00→22:38)
[2019-05-06] MEDS: CALCIUM ACETATE 667 MG CAP PO SCH ×3 (08:14→17:59)
[2019-05-06 09:00] VITALS: BP 157/57
[2019-05-06] MEDS: PANTOPRAZOLE 40 MG TAB PO SCH ×2 (10:00→11:30)
[2019-05-06] MEDS: amLODIPine BESYLATE 5 MG TAB PO SCH (10:00)
[2019-05-06] MEDS: CLOPIDOGREL BISULFATE 75 MG TAB PO SCH (11:09)
[2019-05-06] MEDS: RANOLAZINE ER 500 MG TAB PO SCH ×3 (11:09→21:45)
[2019-05-06] MEDS: METOPROLOL TARTRATE 50 MG TAB PO SCH ×2 (11:10→21:46)
[2019-05-06] MEDS: ASPirin 81 mg TAB PO SCH ×2 (11:11→11:28)
[2019-05-06 11:12] LABS: Basophils # (auto) 0 uL; Eosinophils # (auto) 0 uL; Eosinophils % (auto) 1.1 % (0.0-7.0); Hematocrit 30.5 % (41.0-53.0); Lymphocytes # (auto) 0.4 uL; Lymphocytes % (auto) 8.8 % (10.0-50.0); Mean Corpuscular Hemoglobin 32.4 pg (28.0-32.0); Mean Corpuscular Hgb Conc. 32.8 g/dL (32.0-36.0); Mean Corpuscular Volume 98.6 fL (80.0-100.0); Monocytes # (auto) 0.5 uL; Monocytes % (auto) 11.4 % (0.0-12.0); Neutrophils # (auto) 3.2 uL; Neutrophils % (auto) 77.7 % (37.0-80.0); Nucleated Red Blood Cells % 0.3 %; Platelet Count (auto) 241 10^3/uL (140-450); Red Cell Distribution Width 16.1 % (11.8-14.3); White Blood Cell 4.1 10^3/uL (4.4-10.8)
[2019-05-06] MEDS: ONDANSETRON HCL 4 MG/2 ML VIAL IV PRN (11:15)
[2019-05-06 11:20] LABS: Albumin 3.4 g/dL (3.4-5.0); Calcium 7.4 mg/dL (8.5-10.1); Potassium 4.6 mmol/L (3.5-5.1)
[2019-05-06 11:24] LABS: Bilirubin, Total 0.6 mg/dL (0.2-1.0); Total Protein 7.1 g/dL (6.4-8.2)
[2019-05-06 13:00] VITALS: BP 159/66
--- NOTE | 2019-05-06 14:16 | NUR ---
D/C Planning Per consult for home health safety, physical therapy, medication management and vitals. Information and choice was given to Pt at bedside. Pt stated he has [facility] and would life to resume service with agency. Contact [facility] Ph:) Fax:( [phone]) faxed medical records. Per Cierra from [facility] they will resume service within 48hrs upon d/c day. Informed JAN Echols. Addendum: 05/06/19 at 1418 by JANETTE MONTANA Amended: Links added.
--- NOTE | 2019-05-06 14:23 | NUR ---
pt c/o feeling dizzy, nauseous. emesis x 1. no appetite. am meds held. zofran given x 1 with good relief noted. pt did not eat lunch, presently resting in bed with eyes closed. Dr. Sanders aware that pt will not discharge today. Dr Raymundo also aware, pt to have dialysis tomorrow.
--- NOTE | 2019-05-06 15:27 | NUR ---
NUTRITION ASSESSMENT NOTES Please refer to link notes of nutrition screen form filed under the intervention section of the plan of care for further details. Est. Needs: 1400 kcal to 1750 kcal (20-25 kcal/kgBW),69 gms to 104 gms pro (1.0-1.5 gms/kgBW d/t ESRD on HD). Will continue to monitor pertinent labs and reassess nutrient need prn Thank you. Addendum: 05/06/19 at [address] Amended: Links added.
[2019-05-06] MEDS: ACETAMINOPHEN 325 MG TAB PO PRN (16:09)
[2019-05-06 17:32] VITALS: BP 166/69
--- NOTE | 2019-05-06 19:30 | NUR ---
Opening Shift Note Assumed care of patient, awake and alert, Cape Verdean speaking. No S/S of distress/SOB or pain. Instructed on POC and to call for assist PRN, patient verbalized understanding, call light within reach, will continue to monitor for changes Q1hr and PRN.
--- NOTE | 2019-05-06 20:10 | NUR ---
Dr. Gonzales at bedside
[2019-05-06] MEDS: ATORVASTATIN 20 MG TAB PO SCH (21:45)
[2019-05-06 21:50] VITALS: BP 151/65
[2019-05-07 05:36] VITALS: BP 156/75
[2019-05-07] MEDS: InsuLIN REG 1unit/0.01ml Soln (100units/ml) SC SCH ×4 (06:00→23:46)
[2019-05-07] MEDS: ACCU-CHEK COMFORT CURVE STRIP VI SCH ×4 (06:00→23:45)
[2019-05-07] MEDS: hydrALAZINE HCL 25 MG TAB PO SCH ×3 (06:00→22:10)
[2019-05-07] MEDS ORDERED: SODIUM CHL 0.9% 1000 ML BAG XX ONE (07:00)
--- NOTE | 2019-05-07 08:00 | NUR ---
Patient sitting in bed, awake, eating breakfast. Patient speaks Frisian, little British.
[2019-05-07] MEDS: CALCIUM ACETATE 667 MG CAP PO SCH ×3 (08:18→17:48)
[2019-05-07 09:00] VITALS: BP 165/69
--- NOTE | 2019-05-07 09:00 | NUR ---
Dialysis Nurse Joel at bedside for hemodialysis.
[2019-05-07] MEDS: CLOPIDOGREL BISULFATE 75 MG TAB PO SCH ×2 (10:00→13:40)
--- NOTE | 2019-05-07 12:30 | NUR ---
Dr. Sanders at bedside. Patient complained of dizziness, refused to go home today. Dr. Sanders ordered to cancel the discharge order today, discharge the patent tomorrow, Friday, if okay with Dr. Gonzales as per Neurology.
[2019-05-07 13:00] VITALS: BP 155/69
--- NOTE | 2019-05-07 13:10 | NUR ---
Hemodialysis done. About 2.25 L off, BP = 177/77, Heart rate = 60 as per Dialysis Nurse Joel. Joel said he did not administer Heparin, patient can take the Plavix as ordered.
[2019-05-07] MEDS: RANOLAZINE ER 500 MG TAB PO SCH ×2 (13:40→22:09)
--- NOTE | 2019-05-07 13:40 | NUR ---
BP = 166/70, Heart rate = 68, O2 Sat = 100% on O2 at 2 LPM.
[2019-05-07] MEDS: amLODIPine BESYLATE 5 MG TAB PO SCH (13:41)
[2019-05-07] MEDS: METOPROLOL TARTRATE 50 MG TAB PO SCH ×2 (13:42→22:10)
[2019-05-07 14:00] VITALS: BP 172/77
--- NOTE | 2019-05-07 15:40 | NUR ---
BP = 159/60, Heart rate = 63, O2 Sat = 91% on room air.
[2019-05-07 17:00] VITALS: BP 177/70
--- NOTE | 2019-05-07 17:47 | NUR ---
BP = 177/70, Heart rate = 62. Labetalol IVP 10 mg given for SBP>150.
--- NOTE | 2019-05-07 19:15 | NUR ---
Opening Shift Note Received report from Odalis MONTOYA. Assumed care of patient, awake and alert. No S/S of distress/SOB or pain. Instructed on POC and to call for assist PRN, will continue to monitor for changes Q1hr and PRN.
[2019-05-07] MEDS: ONDANSETRON HCL 4 MG/2 ML VIAL IV PRN (20:40)
[2019-05-07] MEDS ORDERED: EPOETIN ALFA 10,000 UNIT/1 ML VIAL SC ONE (21:00)
[2019-05-07 22:00] VITALS: BP 148/68
[2019-05-07] MEDS: ATORVASTATIN 20 MG TAB PO SCH (22:10)
[2019-05-08 05:00] VITALS: BP 138/60
[2019-05-08] MEDS: InsuLIN REG 1unit/0.01ml Soln (100units/ml) SC SCH ×2 (06:00→12:00)
[2019-05-08] MEDS: hydrALAZINE HCL 25 MG TAB PO SCH (06:12)
[2019-05-08] MEDS: ACCU-CHEK COMFORT CURVE STRIP VI SCH ×2 (06:12→12:00)
--- NOTE | 2019-05-08 07:40 | NUR ---
Patient in bed, awake, oriented x4. No acute distress noted. Patient is aware he's going to be discharged today as per Dr. Sanders.
[2019-05-08] MEDS: CALCIUM ACETATE 667 MG CAP PO SCH ×2 (08:00→12:00)
[2019-05-08 09:00] VITALS: BP 157/64
--- NOTE | 2019-05-08 10:10 | NUR ---
Dr. Gonzales at bedside. Patient told the MD he wants to go home today. Dr. Gonzales said patient can go home as per Neurology perspective.
[2019-05-08] MEDS: PANTOPRAZOLE 40 MG TAB PO SCH (10:20)
[2019-05-08] MEDS: METOPROLOL TARTRATE 50 MG TAB PO SCH (10:20)
[2019-05-08] MEDS: CLOPIDOGREL BISULFATE 75 MG TAB PO SCH (10:21)
[2019-05-08] MEDS: amLODIPine BESYLATE 5 MG TAB PO SCH (10:21)
[2019-05-08] MEDS: ASPirin 81 mg TAB PO SCH (10:21)
[2019-05-08] MEDS: RANOLAZINE ER 500 MG TAB PO SCH (10:21)
--- NOTE | 2019-05-08 12:35 | NUR ---
Discharge instructions given as ordered. Encourage to follow up with PMD as instructed. All questions and concerns addressed. Patient verbalized understanding. Medication reconciliation form completed and copy given to patient. IV removed with catheter intact, pressure dressing applied. Telemetry unit returned to ICU. Patient taken to vehicle via wheelchair with all personal belongings, accompanied by staff. Patient is to be picked up via [employer] called by family. No distress noted at time of departure.
== END 2019-05-08 12:35 | disposition home or self-care (01) | DRG 280 ==
LOC: EDBD 21:19 → ER 21:23 → TELE 21:24 → TELE-CENTR 05-03 21:49
PROVIDERS: ADMIT Internal Medicine; ATTEND Internal Medicine
PROC: 5A1D70Z Performance of Urinary Filtration, Intermittent, Less than 6 Hours Per Day (ICD-10-PCS; 2019-05-03)
PROC: 5A1D70Z Performance of Urinary Filtration, Intermittent, Less than 6 Hours Per Day (ICD-10-PCS; 2019-05-05)
PROC: 5A1D70Z Performance of Urinary Filtration, Intermittent, Less than 6 Hours Per Day (ICD-10-PCS; principal; 2019-05-07)
DX: I21.4 Non-ST elevation (NSTEMI) myocardial infarction (principal); I50.43 Acute on chronic combined systolic (congestive) and diastolic (congestive) heart failure; N18.6 End stage renal disease; I13.2 Hypertensive heart and chronic kidney disease with heart failure and with stage 5 chronic kidney disease, or end stage renal disease; E87.2 Acidosis; E11.22 Type 2 diabetes mellitus with diabetic chronic kidney disease; E78.00 Pure hypercholesterolemia, unspecified; E87.5 Hyperkalemia; R09.02 Hypoxemia; K21.9 Gastro-esophageal reflux disease without esophagitis; D63.1 Anemia in chronic kidney disease; I25.110 Atherosclerotic heart disease of native coronary artery with unstable angina pectoris; E11.42 Type 2 diabetes mellitus with diabetic polyneuropathy; E78.5 Hyperlipidemia, unspecified; F41.9 Anxiety disorder, unspecified; I25.2 Old myocardial infarction; Z82.3 Family history of stroke; Z82.49 Family history of ischemic heart disease and other diseases of the circulatory system; Z83.3 Family history of diabetes mellitus; Z87.442 Personal history of urinary calculi; Z99.2 Dependence on renal dialysis; Z86.73 Personal history of transient ischemic attack (TIA), and cerebral infarction without residual deficits; Z90.49 Acquired absence of other specified parts of digestive tract; Z91.19 Patient's noncompliance with other medical treatment and regimen
CPT/HCPCS: 36415; 71045; 80053; 82306; 82962; 83036; 83880; 83970; 84100; 84132; 84484; 84550; 85025; 90935; 93005; 96365; 96375; 96376; 97116; 97163; 97530; G0378; J0610; J0885; J1815; J2405

== ENCOUNTER 2019-06-11 10:11 | Inpatient (IN) | payer MEDICARE, MEDICAID ==
[~2019-06-11] VITALS: Ht 160 cm; Wt 64.9 kg
[~2019-06-11 10:11] MED LIST changes: +ALPR0.25 PO; +ATOR20TA PO; -BRIM0.159 OP; +CALC667C5 PO; +CITA10TA70 PO; -LOSA100T22 PO; -MET25T PO; +METO-158 PO; -PATI1POW PO; +PATI1POW3 PO; -SIMV-8 PO; -TERA2CAP45 PO
[2019-06-11] MEDS ORDERED: cloNIDine HCL 0.1 MG TAB ONE (10:40)
[2019-06-11] MEDS ORDERED: cloNIDine HCL 0.1 MG TAB PO ONE (10:45)
[2019-06-11 11:58] LABS: Basophils # (auto) 0.1 uL; Basophils % (auto) 1.3 % (0.0-2.0); Eosinophils # (auto) 0.1 uL; Eosinophils % (auto) 1.5 % (0.0-7.0); Hematocrit 31.3 % (41.0-53.0); Hemoglobin 10.5 g/dL (13.5-17.5); Lymphocytes # (auto) 0.9 uL; Lymphocytes % (auto) 19.7 % (10.0-50.0); Mean Corpuscular Hgb Conc. 33.6 g/dL (32.0-36.0); Mean Corpuscular Volume 98.1 fL (80.0-100.0); Monocytes # (auto) 0.3 uL; Monocytes % (auto) 7.5 % (0.0-12.0); Neutrophils # (auto) 3.2 uL; Nucleated Red Blood Cells % 0.1 %; Platelet Count (auto) 206 10^3/uL (140-450); Red Cell Distribution Width 15.1 % (11.8-14.3); White Blood Cell 4.6 10^3/uL (4.4-10.8)
[2019-06-11 12:10] LABS: Albumin 3.5 g/dL (3.4-5.0); Calcium 7.4 mg/dL (8.5-10.1)
[2019-06-11 12:15] LABS: BUN/Creatinine Ratio 6.7; Bilirubin, Total 0.5 mg/dL (0.2-1.0); Total Protein 7.4 g/dL (6.4-8.2)
[2019-06-11] MEDS ORDERED: ASPirin-EC 81 mg tab PO ONE (14:30)
[2019-06-11] MEDS ORDERED: TEMAZEPAM 15 MG CAP PO PRN (15:45)
[2019-06-11] MEDS ORDERED: ONDANSETRON HCL 4 MG/2 ML VIAL IV PRN (15:45)
[2019-06-11] MEDS ORDERED: NITROGLYCERIN 0.4 MG SL TAB SL PRN (15:45)
[2019-06-11] MEDS ORDERED: DOCUSATE SOD 100 MG CAP PO PRN (15:45)
[2019-06-11] MEDS ORDERED: MORPHINE SULF INJ 2 MG/ML SYRINGE 1ML IV PRN (15:45)
[2019-06-11] MEDS: hydrALAZINE HCL 20 MG/ML VL IV PRN (17:27)
[2019-06-11] MEDS: PRAMIPEXOLE DIHYDROCHLORIDE MO 0.25 MG TAB PO SCH (18:05)
[2019-06-11] MEDS: FUROSEMIDE 40 MG TAB PO SCH (18:05)
--- NOTE | 2019-06-11 20:25 | NUR ---
64YROLD MALE ADDMITTED TO [id number] SPEAKS MINIMAL [facility]. ORIENT TO ROOM AND SURROUNDINGS LT FA FISTULA WITH [employer] STATES HE HAS DIALYSIS DY Friday MADE COMFORTABLE IN ROOM
[2019-06-11] MEDS: METOPROLOL TARTRATE 50 MG TAB PO SCH (21:52)
[2019-06-11] MEDS: ALPRAZolam 0.25 MG TAB PO SCH (21:52)
[2019-06-11] MEDS ORDERED: CALCIUM ACETATE 667 MG CAP PO SCH (22:00)
[2019-06-11 22:14] VITALS: BP 167/87
[2019-06-12] MEDS: hydrALAZINE HCL 20 MG/ML VL IV PRN ×2 (04:31→14:06)
[2019-06-12 05:38] VITALS: BP 164/73
[2019-06-12] MEDS: FUROSEMIDE 40 MG TAB PO SCH ×2 (05:53→17:46)
--- NOTE | 2019-06-12 07:30 | NUR ---
Assumed care of patient Patient resting in bed with even and unlabored respirations, no distress noted. Instructed patient through translation on POC, fall precautions and to call for assistance as needed. Patient verbalized understanding. Fall precautions in place with bed in lowest locked position with x2 side rails up and call light within reach. Will continue to monitor q1hr & PRN.
[2019-06-12 08:00] VITALS: BP 157/73
[2019-06-12 08:06] LABS: Basophils # (auto) 0.1 uL; Basophils % (auto) 1.2 % (0.0-2.0); Eosinophils # (auto) 0.1 uL; Eosinophils % (auto) 2.2 % (0.0-7.0); Hemoglobin 10.7 g/dL (13.5-17.5); Lymphocytes # (auto) 0.9 uL; Mean Corpuscular Hemoglobin 32.5 pg (28.0-32.0); Mean Corpuscular Hgb Conc. 33.5 g/dL (32.0-36.0); Mean Corpuscular Volume 96.9 fL (80.0-100.0); Monocytes # (auto) 0.4 uL; Monocytes % (auto) 6.9 % (0.0-12.0); Neutrophils # (auto) 3.9 uL; Neutrophils % (auto) 72.7 % (37.0-80.0); Nucleated Red Blood Cells % 0.1 %; Platelet Count (auto) 207 10^3/uL (140-450); Red Blood Cells 3.31 10^6/uL (4.5-5.90); Red Cell Distribution Width 15.5 % (11.8-14.3); White Blood Cell 5.3 10^3/uL (4.4-10.8)
--- NOTE | 2019-06-12 08:13 | NUR ---
Care endorsed to Awilda Croft RN.
[2019-06-12 08:57] LABS: Albumin 3.1 g/dL (3.4-5.0); BUN/Creatinine Ratio 7.7; Calcium 7.4 mg/dL (8.5-10.1)
[2019-06-12 08:59] LABS: Bilirubin, Total 0.4 mg/dL (0.2-1.0); Total Protein 6.8 g/dL (6.4-8.2)
[2019-06-12 09:00] VITALS: BP_SYST 157; BP_DIAS 73; BP_DIAS 76
[2019-06-12 09:29] LABS: Potassium 5.6 mmol/L (3.5-5.1)
[2019-06-12] MEDS: CALCIUM ACETATE 667 MG CAP PO SCH ×3 (09:40→17:46)
[2019-06-12] MEDS: ALPRAZolam 0.25 MG TAB PO SCH ×2 (09:40→22:10)
[2019-06-12] MEDS: ATORVASTATIN 20 MG TAB PO SCH (09:40)
[2019-06-12] MEDS: CLOPIDOGREL BISULFATE 75 MG TAB PO SCH (09:40)
[2019-06-12] MEDS: PANTOPRAZOLE 40 MG TAB PO SCH (09:40)
[2019-06-12] MEDS: amLODIPine BESYLATE 5 MG TAB PO SCH (09:41)
[2019-06-12] MEDS: ASPirin 81 mg TAB PO SCH (09:41)
[2019-06-12] MEDS: METOPROLOL TARTRATE 50 MG TAB PO SCH ×2 (09:42→22:10)
[2019-06-12] MEDS ORDERED: LISINOPRIL 10 MG TAB PO SCH (10:00)
[2019-06-12] MEDS ORDERED: SODIUM ZIRCONIUM CYCL 10 GM PAK PO ONE (12:30)
[2019-06-12 13:00] VITALS: BP 170/80
[2019-06-12] MEDS ORDERED: MORPHINE SULF INJ 2 MG/ML SYRINGE 1ML IV PRN (14:15)
[2019-06-12 17:00] VITALS: BP 135/61
[2019-06-12] MEDS: PRAMIPEXOLE DIHYDROCHLORIDE MO 0.25 MG TAB PO SCH (17:46)
[2019-06-12] MEDS: ACETAMINOPHEN 325 MG TAB PO PRN (17:47)
--- NOTE | 2019-06-12 19:25 | NUR ---
Opening Shift Note Assumed care of patient, awake and alert. No S/S of distress/SOB or pain. Instructed on POC and to call for assist PRN, will continue to monitor for changes Q1hr and PRN.
[2019-06-12 22:00] VITALS: BP 153/74
[2019-06-12] MEDS: SODIUM ZIRCONIUM CYCL 10 GM PAK PO SCH (22:09)
--- NOTE | 2019-06-13 04:00 | NUR ---
The patient complains of a 7/10 throbbing head and requested pain medication. Will treat with PRN pain medication.
[2019-06-13] MEDS: ACETAMINOPHEN 325 MG TAB PO PRN ×2 (04:09→10:16)
[2019-06-13 05:00] VITALS: BP 182/82
--- NOTE | 2019-06-13 05:00 | NUR ---
BLOOD PRESSURE ASSESSMENT The patient's blood pressure is 188/88 with a heart rate of 68. The patient currently has a slight headache. Will treat with PRN high blood pressure medication.
[2019-06-13] MEDS: hydrALAZINE HCL 20 MG/ML VL IV PRN (05:08)
--- NOTE | 2019-06-13 05:45 | NUR ---
BLOOD PRESSURE REASSESSMENT The patient's blood pressure has improved to 156/72. The patient is currently asymptomatic. Will continue to monitor patient's status.
[2019-06-13] MEDS: FUROSEMIDE 40 MG TAB PO SCH ×2 (06:38→17:48)
[2019-06-13] MEDS: SODIUM ZIRCONIUM CYCL 10 GM PAK PO SCH ×3 (06:38→23:38)
[2019-06-13] MEDS ORDERED: SODIUM CHL 0.9% 1000 ML BAG XX ONE (07:00)
[2019-06-13 08:00] VITALS: BP 159/81
[2019-06-13 08:30] LABS: BUN/Creatinine Ratio 8.1; Calcium 7.6 mg/dL (8.5-10.1); Potassium 5.1 mmol/L (3.5-5.1)
[2019-06-13 09:00] VITALS: BP 159/81
[2019-06-13] MEDS: CALCIUM ACETATE 667 MG CAP PO SCH ×3 (10:15→17:48)
--- NOTE | 2019-06-13 10:22 | NUR ---
CALLED [facility] TO VERIFY TIME PATIENT IS TO RECEIVE DIALYSIS. MANAGER [employer]IPMENT IS TO CALL BACK WITH THE INFORMATION
[2019-06-13] MEDS: ALPRAZolam 0.25 MG TAB PO SCH ×2 (11:38→23:39)
[2019-06-13] MEDS: METOPROLOL TARTRATE 50 MG TAB PO SCH ×2 (11:38→23:39)
[2019-06-13] MEDS: amLODIPine BESYLATE 5 MG TAB PO SCH (11:39)
[2019-06-13] MEDS: PANTOPRAZOLE 40 MG TAB PO SCH (11:39)
[2019-06-13] MEDS: CLOPIDOGREL BISULFATE 75 MG TAB PO SCH (11:39)
[2019-06-13] MEDS: ATORVASTATIN 20 MG TAB PO SCH (11:40)
[2019-06-13] MEDS: ASPirin 81 mg TAB PO SCH (11:40)
[2019-06-13 13:00] VITALS: BP 190/76
[2019-06-13] MEDS ORDERED: LORazepam 2MG/ML-1ML VIAL IV PRN (16:00)
[2019-06-13 16:22] LABS: % Iron Saturation 21.8 % (20-55)
[2019-06-13 17:00] VITALS: BP 164/71
[2019-06-13] MEDS ORDERED: PRAMIPEXOLE DIHYDROCHLORIDE MO 0.25 MG TAB PO SCH (20:00)
[2019-06-13] MEDS ORDERED: EPOETIN ALFA 10,000 UNIT/1 ML VIAL SC ONE (21:00)
[2019-06-13 21:48] VITALS: BP 157/81
[2019-06-13] MEDS: PRAMIPEXOLE DIHYDROCHLORIDE MO 0.25 MG TAB PO SCH (23:38)
[2019-06-14] MEDS: hydrALAZINE HCL 20 MG/ML VL IV PRN (01:02)
[2019-06-14 05:32] VITALS: BP 134/41
[2019-06-14] MEDS: SODIUM ZIRCONIUM CYCL 10 GM PAK PO SCH ×3 (06:00→21:38)
[2019-06-14] MEDS: FUROSEMIDE 40 MG TAB PO SCH ×2 (06:00→18:06)
--- NOTE | 2019-06-14 06:35 | NUR ---
Received call from licensed reactor operator. risk assessor states that she will arrive at the hospital at 0700 AM.
[2019-06-14] MEDS: CALCIUM ACETATE 667 MG CAP PO SCH ×3 (08:00→18:06)
[2019-06-14 09:00] VITALS: BP 110/55
[2019-06-14] MEDS: RANOLAZINE ER 500 MG TAB PO SCH (12:12)
[2019-06-14] MEDS: ALPRAZolam 0.25 MG TAB PO SCH ×2 (12:12→21:12)
[2019-06-14] MEDS: ASPirin 81 mg TAB PO SCH (12:13)
[2019-06-14] MEDS: METOPROLOL TARTRATE 50 MG TAB PO SCH ×2 (12:13→21:29)
[2019-06-14] MEDS: ATORVASTATIN 20 MG TAB PO SCH (12:14)
[2019-06-14] MEDS: CLOPIDOGREL BISULFATE 75 MG TAB PO SCH (12:14)
[2019-06-14] MEDS: amLODIPine BESYLATE 5 MG TAB PO SCH (12:14)
[2019-06-14] MEDS: PANTOPRAZOLE 40 MG TAB PO SCH (12:14)
[2019-06-14 13:00] VITALS: BP 195/85
--- NOTE | 2019-06-14 13:13 | NUR ---
NUTRITION ASSESSMENT NOTES Please refer to link notes of nutrition screen form filed under the intervention section of the plan of care for further details. Est. Needs: 1650 kcal to 2000 kcal (25-30 kcal/kgBW), 62 gms to 78 gms pro (1.2-1.5 gms/kgIBW: 52 kg d/t ESRD on HD). Will continue to monitor pertinent labs and reassess nutrient need prn Thank you. Addendum: 06/14/19 at [address] Amended: Links added.
--- NOTE | 2019-06-14 16:26 | NUR ---
SPOKE TO MD ALDANA ON THE PHONE REGARDING A CARDIOLOGY CONSULT FOR PATIENTS ELEVATED TROPONINS. VERBALIZED CHATO IS ON PATIENTS CASE.
[2019-06-14 17:00] VITALS: BP 155/73
--- NOTE | 2019-06-14 17:00 | NUR ---
DRESSING TO LEFT ARM FROM DIALYSIS QUARTER SIZE BLOOD BLEED THROUGH. DRESSING REENFORCED.
--- NOTE | 2019-06-14 18:01 | NUR ---
DRESSING TO LEFT ARM FROM DIALYSIS REMOVED, STILL SOME BLEEDING IS OCCURRING. REAPPLIED FRESH DRESSING. PATIENT TOLERATED WELL. WILL CONTINUE TO MONITOR
--- NOTE | 2019-06-14 20:00 | NUR ---
Opening Shift Note Assumed care of patient, awake and alert. No S/S of distress/SOB or pain. Instructed on POC and to call for assist PRN, will continue to monitor for changes Q1hr and PRN.Left forearm fistula site with dressing dry and intact, no bleeding noted.
[2019-06-14] MEDS: PRAMIPEXOLE DIHYDROCHLORIDE MO 0.25 MG TAB PO SCH (20:20)
[2019-06-14 22:00] VITALS: BP 143/59
[2019-06-15 05:00] VITALS: BP 159/70
[2019-06-15] MEDS: SODIUM ZIRCONIUM CYCL 10 GM PAK PO SCH ×3 (05:17→22:57)
[2019-06-15] MEDS: FUROSEMIDE 40 MG TAB PO SCH ×2 (05:17→18:27)
--- NOTE | 2019-06-15 06:00 | NUR ---
IV insertion IV access obtained, via clean sterile technique by inserting 22 gauge catheter at right hand after attempt. IV secured properly. No trauma to site. Patient tolerated procedure well.
--- NOTE | 2019-06-15 06:24 | NUR ---
IV removal IV DC'd in the right a.c with clean sterile technique, catheter fully intact. Pressure dressing applied to site. Patient tolerated well.
--- NOTE | 2019-06-15 07:32 | NUR ---
Report given to Baltazar Lancaster, [patient is resting no distress.
[2019-06-15] MEDS: CALCIUM ACETATE 667 MG CAP PO SCH ×3 (08:00→18:27)
--- NOTE | 2019-06-15 08:00 | NUR ---
Opening Shift Note Assumed care of patient, awake and alert. No S/S of distress/SOB or pain. Patient is standby assist with ADL's including bathroom privileges. Instructed on POC and to call for assist PRN, will continue to monitor for changes Q1hr and PRN.
[2019-06-15 09:00] VITALS: BP 171/74
[2019-06-15] MEDS: CLOPIDOGREL BISULFATE 75 MG TAB PO SCH (09:55)
[2019-06-15] MEDS: ALPRAZolam 0.25 MG TAB PO SCH ×2 (09:55→21:06)
[2019-06-15] MEDS: ATORVASTATIN 20 MG TAB PO SCH (09:56)
[2019-06-15] MEDS: ASPirin 81 mg TAB PO SCH (09:56)
[2019-06-15] MEDS: amLODIPine BESYLATE 5 MG TAB PO SCH (09:56)
[2019-06-15] MEDS: PANTOPRAZOLE 40 MG TAB PO SCH (09:57)
[2019-06-15] MEDS: METOPROLOL TARTRATE 50 MG TAB PO SCH ×2 (09:57→21:06)
[2019-06-15] MEDS ORDERED: hydrALAZINE HCL 25 MG TAB PO SCH (10:15)
[2019-06-15] MEDS: hydrALAZINE HCL 25 MG TAB PO SCH ×3 (12:30→21:06)
[2019-06-15 13:00] VITALS: BP 150/74
--- NOTE | 2019-06-15 16:00 | NUR ---
Patient may be discharged home from Dr. Gonzales-neurology and Dr. Raymundo-nephrology standpoint.
[2019-06-15 17:00] VITALS: BP 157/77
[2019-06-15] MEDS: PRAMIPEXOLE DIHYDROCHLORIDE MO 0.25 MG TAB PO SCH (19:34)
[2019-06-15 22:13] VITALS: BP 142/63
[2019-06-16 05:00] VITALS: BP 154/69
[2019-06-16] MEDS: FUROSEMIDE 40 MG TAB PO SCH ×2 (06:00→18:11)
[2019-06-16] MEDS: SODIUM ZIRCONIUM CYCL 10 GM PAK PO SCH ×3 (06:00→23:31)
[2019-06-16] MEDS: hydrALAZINE HCL 25 MG TAB PO SCH ×3 (06:00→21:23)
[2019-06-16] MEDS: ACETAMINOPHEN 325 MG TAB PO PRN (06:34)
[2019-06-16] MEDS ORDERED: SODIUM CHL 0.9% 1000 ML BAG XX ONE (07:00)
[2019-06-16 07:40] LABS: BUN/Creatinine Ratio 4.7; Calcium 6.8 mg/dL (8.5-10.1); Potassium 3.7 mmol/L (3.5-5.1)
[2019-06-16] MEDS: CALCIUM ACETATE 667 MG CAP PO SCH ×3 (08:16→18:11)
[2019-06-16] MEDS: ALPRAZolam 0.25 MG TAB PO SCH ×2 (08:51→21:23)
[2019-06-16] MEDS: PANTOPRAZOLE 40 MG TAB PO SCH (08:51)
[2019-06-16] MEDS: ATORVASTATIN 20 MG TAB PO SCH (08:51)
[2019-06-16] MEDS: ASPirin 81 mg TAB PO SCH (08:51)
[2019-06-16] MEDS: CLOPIDOGREL BISULFATE 75 MG TAB PO SCH (08:51)
[2019-06-16 09:12] VITALS: BP 146/72
--- NOTE | 2019-06-16 09:15 | NUR ---
Patient complained of recurrent severe headache and not ready to go home yet. Dr. Sanders at bedside, orders received to reconsult neurology. Continue care.
[2019-06-16 13:08] VITALS: BP 157/61
--- NOTE | 2019-06-16 13:30 | NUR ---
Hemodialysis done, 2.5L out.
[2019-06-16] MEDS: RANOLAZINE ER 500 MG TAB PO SCH (13:34)
[2019-06-16] MEDS: amLODIPine BESYLATE 5 MG TAB PO SCH (13:35)
[2019-06-16] MEDS: METOPROLOL TARTRATE 50 MG TAB PO SCH ×2 (13:35→21:23)
[2019-06-16 17:03] VITALS: BP 144/68
[2019-06-16] MEDS: PRAMIPEXOLE DIHYDROCHLORIDE MO 0.25 MG TAB PO SCH (19:56)
[2019-06-16] MEDS ORDERED: EPOETIN ALFA 10,000 UNIT/1 ML VIAL SC ONE (21:00)
[2019-06-16 22:00] VITALS: BP 151/69
[2019-06-17 05:00] VITALS: BP 149/69
[2019-06-17] MEDS: hydrALAZINE HCL 25 MG TAB PO SCH (05:06)
[2019-06-17] MEDS: FUROSEMIDE 40 MG TAB PO SCH (05:06)
[2019-06-17] MEDS: ACETAMINOPHEN 325 MG TAB PO PRN (06:57)
--- NOTE | 2019-06-17 07:40 | NUR ---
Patient has dialysis fistula left forearm. fistula has good bruit and thrill. Call light in reach. Will continue to monitor.
[2019-06-17] MEDS: CALCIUM ACETATE 667 MG CAP PO SCH ×2 (07:51→12:20)
[2019-06-17] MEDS: ASPirin 81 mg TAB PO SCH (09:41)
[2019-06-17] MEDS: CLOPIDOGREL BISULFATE 75 MG TAB PO SCH (09:41)
[2019-06-17] MEDS: PANTOPRAZOLE 40 MG TAB PO SCH (09:41)
[2019-06-17] MEDS: ALPRAZolam 0.25 MG TAB PO SCH (09:41)
[2019-06-17] MEDS: ATORVASTATIN 20 MG TAB PO SCH (09:41)
[2019-06-17] MEDS: METOPROLOL TARTRATE 50 MG TAB PO SCH (09:42)
[2019-06-17] MEDS: amLODIPine BESYLATE 5 MG TAB PO SCH (09:42)
[2019-06-17 14:43] VITALS: BP 146/65
--- NOTE | 2019-06-17 15:15 | NUR ---
Opening Shift Note Assumed care of patient, awake and alert. No S/S of distress/SOB or pain. Instructed on POC and to call for assist PRN, will continue to monitor for changes Q1hr and PRN. Addendum: 06/17/19 at 1520 by Ligia Navarro RN RN documented on wrong patient
[2019-06-18] MEDS ORDERED: SODIUM CHL 0.9% 1000 ML BAG XX ONE (07:00)
[2019-06-18] MEDS ORDERED: EPOETIN ALFA 10,000 UNIT/1 ML VIAL SC ONE (21:00)
== END 2019-06-17 15:15 | disposition home health service (06) | DRG 64 ==
LOC: ER 10:11 → TELE 10:12 → TELE-CENTR 19:45
PROVIDERS: ADMIT Internal Medicine; ATTEND Internal Medicine
PROC: 5A1D70Z Performance of Urinary Filtration, Intermittent, Less than 6 Hours Per Day (ICD-10-PCS; 2019-06-14)
PROC: 5A1D70Z Performance of Urinary Filtration, Intermittent, Less than 6 Hours Per Day (ICD-10-PCS; principal; 2019-06-16)
DX: I63.9 Cerebral infarction, unspecified (principal); N18.6 End stage renal disease; I16.9 Hypertensive crisis, unspecified; E44.1 Mild protein-calorie malnutrition; I13.2 Hypertensive heart and chronic kidney disease with heart failure and with stage 5 chronic kidney disease, or end stage renal disease; E11.22 Type 2 diabetes mellitus with diabetic chronic kidney disease; F41.9 Anxiety disorder, unspecified; D63.1 Anemia in chronic kidney disease; E78.5 Hyperlipidemia, unspecified; I50.9 Heart failure, unspecified; E87.5 Hyperkalemia; I16.0 Hypertensive urgency; Z99.2 Dependence on renal dialysis; Z68.25 Body mass index [BMI] 25.0-25.9, adult; Z86.73 Personal history of transient ischemic attack (TIA), and cerebral infarction without residual deficits; I25.2 Old myocardial infarction; Z79.02 Long term (current) use of antithrombotics/antiplatelets; Z79.82 Long term (current) use of aspirin; Z79.899 Other long term (current) drug therapy; Z82.3 Family history of stroke; Z82.49 Family history of ischemic heart disease and other diseases of the circulatory system; Z83.3 Family history of diabetes mellitus; Z87.442 Personal history of urinary calculi; Z91.19 Patient's noncompliance with other medical treatment and regimen; F32.9 Major depressive disorder, single episode, unspecified; K21.9 Gastro-esophageal reflux disease without esophagitis
CPT/HCPCS: 36415; 70450; 70551; 71046; 80048; 80053; 82728; 82962; 83540; 83550; 84484; 85025; 87081; 90935; 93005; 93886; G0378; J0885; J1642; J2405

== ENCOUNTER 2019-07-31 16:58 | Inpatient (IN) | payer MEDICARE, MEDICAID ==
[~2019-07-31] VITALS: Ht 167.6 cm; Wt 71.3 kg
[~2019-07-31 16:58] MED LIST changes: +LIDO5CRE14 EX
[2019-07-31] MEDS ORDERED: ASPirin-EC 81 mg tab PO ONE (17:30)
[2019-07-31 18:31] LABS: Basophils # (auto) 0.1 uL; Basophils % (auto) 0.9 % (0.0-2.0); Eosinophils # (auto) 0 uL; Eosinophils % (auto) 0.5 % (0.0-7.0); Hematocrit 30.8 % (41.0-53.0); Hemoglobin 10.2 g/dL (13.5-17.5); Lymphocytes # (auto) 0.8 uL; Lymphocytes % (auto) 15.3 % (10.0-50.0); Mean Corpuscular Hemoglobin 31.4 pg (28.0-32.0); Mean Corpuscular Hgb Conc. 33.1 g/dL (32.0-36.0); Mean Corpuscular Volume 94.7 fL (80.0-100.0); Monocytes # (auto) 0.5 uL; Monocytes % (auto) 8.6 % (0.0-12.0); Neutrophils % (auto) 74.7 % (37.0-80.0); Platelet Count (auto) 207 10^3/uL (140-450); Red Blood Cells 3.25 10^6/uL (4.5-5.90); Red Cell Distribution Width 16.6 % (11.8-14.3); White Blood Cell 5.3 10^3/uL (4.4-10.8)
[2019-07-31 18:46] LABS: Albumin 3.6 g/dL (3.4-5.0); Calcium 7.6 mg/dL (8.5-10.1); Magnesium 2.1 mg/dL (1.6-2.6); Potassium 3.4 mmol/L (3.5-5.1)
[2019-07-31 18:47] LABS: INR 1.15 (0.9-1.15); Partial Thromboplastin Time 28.9 sec (23.64-32.05)
[2019-07-31 18:53] LABS: BUN/Creatinine Ratio 3.9; Bilirubin, Total 0.7 mg/dL (0.2-1.0)
[2019-07-31] MEDS ORDERED: cloNIDine HCL 0.1 MG TAB PO ONE (21:45)
[2019-07-31] MEDS ORDERED: MORPHINE SULFATE 4 MG/ML SYR/VIAL IV PRN (23:45)
[2019-07-31] MEDS ORDERED: MORPHINE SULF INJ 2 MG/ML SYRINGE 1ML IV PRN (23:45)
[2019-07-31] MEDS ORDERED: DOCUSATE SOD 100 MG CAP PO PRN (23:45)
[2019-07-31] MEDS ORDERED: DEXTROSE (50%) 50ML SYRG IV PRN (23:45)
[2019-07-31] MEDS ORDERED: NITROGLYCERIN 0.4 MG SL TAB SL PRN (23:45)
[2019-07-31] MEDS ORDERED: HYDROcodone-ACET 5/325MG TAB PO PRN (23:45)
[2019-07-31] MEDS ORDERED: ONDANSETRON HCL 4 MG/2 ML VIAL IV PRN (23:45)
[2019-08-01] VITALS (7 sets, daily range): BP systolic 107–181; BP diastolic 55–76
[2019-08-01] MEDS: ACCU-CHEK COMFORT CURVE STRIP VI SCH ×6 (00:20→21:31)
--- NOTE | 2019-08-01 03:50 | NUR ---
blood sugar 1st check-55 immediate 2nd check-53 gave pt cranberry juice and zaida crackers.
[2019-08-01] MEDS: InsuLIN REG 1unit/0.01ml Soln (100units/ml) SC SCH ×6 (04:00→21:32)
--- NOTE | 2019-08-01 04:00 | NUR ---
blood sugar rechecked blood sugar, value of 65. will continue to monitor
[2019-08-01 06:20] LABS: Basophils # (auto) 0.1 uL; Basophils % (auto) 1.4 % (0.0-2.0); Eosinophils # (auto) 0.1 uL; Eosinophils % (auto) 1.4 % (0.0-7.0); Hematocrit 32.5 % (41.0-53.0); Hemoglobin 10.9 g/dL (13.5-17.5); Lymphocytes % (auto) 21.3 % (10.0-50.0); Mean Corpuscular Hemoglobin 31.8 pg (28.0-32.0); Mean Corpuscular Hgb Conc. 33.5 g/dL (32.0-36.0); Mean Corpuscular Volume 95.1 fL (80.0-100.0); Monocytes # (auto) 0.4 uL; Monocytes % (auto) 9.9 % (0.0-12.0); Nucleated Red Blood Cells % 0.1 %; Platelet Count (auto) 206 10^3/uL (140-450); Red Blood Cells 3.42 10^6/uL (4.5-5.90); Red Cell Distribution Width 16.8 % (11.8-14.3); White Blood Cell 4.5 10^3/uL (4.4-10.8)
[2019-08-01 06:37] LABS: BUN/Creatinine Ratio 3.9; Calcium 7.3 mg/dL (8.5-10.1); Potassium 3.7 mmol/L (3.5-5.1)
--- NOTE | 2019-08-01 07:16 | NUR ---
pt resting in bed comfortably with eyes closed. bed in low and locked position with call light in reach.
[2019-08-01] MEDS: ISOSORBIDE DINITRATE 10 MG TAB PO SCH ×2 (12:21→17:55)
[2019-08-01] MEDS: NIFEdipine ER 30 MG TAB PO SCH (12:22)
[2019-08-01] MEDS: hydrALAZINE HCL 25 MG TAB PO PRN (12:23)
[2019-08-01] MEDS ORDERED: DEXTROSE (50%) 50ML SYRG IV PRN (16:15)
[2019-08-01] MEDS ORDERED: MORPHINE SULF INJ 2 MG/ML SYRINGE 1ML IV PRN (16:30)
--- NOTE | 2019-08-01 19:25 | NUR ---
pt resting comfortably in bed with eyes closed. pt does not show any s/s of distress or discomfort. respirations are even and nonlabored on 2Lnc. call light is within reach, and bed is in a locked and low position.
[2019-08-01] MEDS: ACETAMINOPHEN 325 MG TAB PO PRN (20:13)
--- NOTE | 2019-08-01 22:00 | NUR ---
pt resting comfortably in bed with eyes closed. call light is within reach. respirations are even and nonlabored.
[2019-08-02 05:57] VITALS: BP 124/57
[2019-08-02] MEDS: ISOSORBIDE DINITRATE 10 MG TAB PO SCH ×3 (06:27→17:13)
[2019-08-02] MEDS: ACCU-CHEK COMFORT CURVE STRIP VI SCH ×4 (06:44→22:10)
[2019-08-02] MEDS: InsuLIN REG 1unit/0.01ml Soln (100units/ml) SC SCH ×4 (06:45→22:00)
--- NOTE | 2019-08-02 06:46 | NUR ---
pt in semi fowlers position with bed in low and locked position. respirations are even and nonlabored. call light within reach. pt does not report any pain or discomfort. pt is prepped for procedure (heart cath) today.
--- NOTE | 2019-08-02 07:00 | NUR ---
Opening Shift Note Assumed care of patient, awake and alert. No S/S of distress/SOB or pain. Instructed on POC and to call for assist PRN, will continue to monitor for changes Q1hr and PRN.
--- NOTE | 2019-08-02 07:15 | NUR ---
PATIENT TAKEN DOWN TO SUPERVISING EDITOR TRAILER
[2019-08-02 07:17] LABS: Basophils # (auto) 0.1 uL; Basophils % (auto) 1.3 % (0.0-2.0); Eosinophils # (auto) 0.2 uL; Eosinophils % (auto) 2.1 % (0.0-7.0); Hematocrit 30.3 % (41.0-53.0); Hemoglobin 10.1 g/dL (13.5-17.5); Lymphocytes # (auto) 1.3 uL; Lymphocytes % (auto) 14.3 % (10.0-50.0); Mean Corpuscular Hemoglobin 32.2 pg (28.0-32.0); Mean Corpuscular Hgb Conc. 33.3 g/dL (32.0-36.0); Mean Corpuscular Volume 96.6 fL (80.0-100.0); Monocytes # (auto) 0.7 uL; Monocytes % (auto) 8.4 % (0.0-12.0); Neutrophils # (auto) 6.5 uL; Neutrophils % (auto) 73.9 % (37.0-80.0); Platelet Count (auto) 221 10^3/uL (140-450); Red Blood Cells 3.14 10^6/uL (4.5-5.90); Red Cell Distribution Width 16.8 % (11.8-14.3); White Blood Cell 8.7 10^3/uL (4.4-10.8)
[2019-08-02 07:30] LABS: Calcium 6.9 mg/dL (8.5-10.1); Potassium 4.5 mmol/L (3.5-5.1)
[2019-08-02 07:38] LABS: BUN/Creatinine Ratio 4.9
[2019-08-02] MEDS ORDERED: IODIXANOL 320MG/ML 100ML BTL IV ONE ×2 (07:40→08:17)
[2019-08-02] MEDS ORDERED: LIDOCAINE 2%HCL (LOCAL ANESTH.) INJ 20ML MDV ONE (07:41)
[2019-08-02] MEDS ORDERED: ANGIOMAX 250 MG VIAL IV ONE (08:03)
[2019-08-02] MEDS ORDERED: HEPARIN SODIUM (PORCINE) 5000 UNITS/ML 1ML VIAL ONE (08:04)
[2019-08-02] MEDS ORDERED: VERAPAMIL 2.5MG/ML INJ 2ML VIAL IV ONE (08:04)
[2019-08-02] MEDS ORDERED: SODIUM CHL 0.9% 50 ML ONE ×2 (08:04→08:26)
[2019-08-02] MEDS ORDERED: fentaNYL CITRATE 100 MCG/2 ML VL ONE (08:04)
[2019-08-02] MEDS ORDERED: MIDAZOLAM HCL 1MG/1ML-2 ML VIAL ONE (08:04)
[2019-08-02] MEDS ORDERED: ADENOSINE 90 MG/30 ML INJ IV ONE (08:26)
[2019-08-02 08:36] VITALS: BP 127/55
--- NOTE | 2019-08-02 10:54 | NUR ---
PATIENT BACK TO FLOOR FROM GIANT TIRE REPAIRER.
[2019-08-02] MEDS: NIFEdipine ER 30 MG TAB PO SCH (11:09)
--- NOTE | 2019-08-02 11:37 | NUR ---
PATIENT ABLE TO SIT UP FROM PROCEDURE. NO BLEEDING FROM RIGHT GROIN DRESSING IS CLEAN DRY AND INTACT.
[2019-08-02 17:00] VITALS: BP 123/65
--- NOTE | 2019-08-02 20:00 | NUR ---
Opening Shift Note Assumed care of patient, awake, AAOx4. No S/S of distress/SOB or pain. On room air and ambulatory. Dressing to right groin CDI, non-tender and soft. Bed in lowest locked position, side rails up x2, call light within reach. Instructed on POC and to call for assist PRN, will continue to monitor for changes Q1hr and PRN.
[2019-08-02 22:00] VITALS: BP 110/50
[2019-08-03] VITALS (7 sets, daily range): BP systolic 141–170; BP diastolic 64–77
[2019-08-03] MEDS: ISOSORBIDE DINITRATE 10 MG TAB PO SCH ×3 (06:00→18:53)
[2019-08-03 06:11] LABS: Hematocrit 29.5 % (41.0-53.0); Hemoglobin 9.7 g/dL (13.5-17.5)
[2019-08-03 06:38] LABS: % Iron Saturation 9.7 % (20-55)
[2019-08-03] MEDS: ACCU-CHEK COMFORT CURVE STRIP VI SCH ×4 (06:44→21:42)
[2019-08-03] MEDS: InsuLIN REG 1unit/0.01ml Soln (100units/ml) SC SCH ×4 (06:45→21:42)
[2019-08-03] MEDS ORDERED: SODIUM CHL 0.9% 1000 ML BAG XX ONE (07:00)
--- NOTE | 2019-08-03 08:15 | NUR ---
Opening Note Assumed care of patient, he is A & O x4, no s/s of distress. Patient is primarily Yoruba speaking, but understands [place]. POC discussed with patient. He is currently receiving Dialysis at this time. Bed is in lowest, locked position, call light within reach, will continue to monitor Q1h and PRN.
[2019-08-03] MEDS: NIFEdipine ER 30 MG TAB PO SCH (10:00)
[2019-08-03] MEDS: hydrALAZINE HCL 25 MG TAB PO PRN (16:38)
--- NOTE | 2019-08-03 18:30 | NUR ---
Recheck patient BP after PRN hydralazine Patient BP 169/73, patient receiving Isordil scheduled at this time. Will monitor BP and notify NOC shift RN to monitor.
--- NOTE | 2019-08-03 19:50 | NUR ---
Opening Shift Note Assumed care of patient, awake, AAOx4. No S/S of distress/SOB or pain. On room air and ambulatory. Bed in lowest locked position, side rails up x2, call light within reach. Instructed on POC and to call for assist PRN, will continue to monitor for changes Q1hr and PRN.
[2019-08-03] MEDS ORDERED: EPOETIN ALFA 10,000 UNIT/1 ML VIAL SC ONE (21:00)
[2019-08-03] MEDS: ACETAMINOPHEN 325 MG TAB PO PRN (21:56)
[2019-08-04 05:10] VITALS: BP 159/68
[2019-08-04] MEDS: hydrALAZINE HCL 25 MG TAB PO PRN (05:44)
--- NOTE | 2019-08-04 06:20 | NUR ---
IV insertion IV access obtained, via clean sterile technique by inserting 20 gauge catheter at Rt FA after 1 attempt. IV secured properly. No trauma to site. Patient tolerated well.
[2019-08-04] MEDS: ACCU-CHEK COMFORT CURVE STRIP VI SCH ×2 (06:30→12:16)
[2019-08-04] MEDS: ISOSORBIDE DINITRATE 10 MG TAB PO SCH ×2 (06:30→12:00)
[2019-08-04] MEDS: InsuLIN REG 1unit/0.01ml Soln (100units/ml) SC SCH ×2 (06:31→11:30)
--- NOTE | 2019-08-04 07:30 | NUR ---
Opening Shift Note Assumed care of patient, awake and alert x4. No S/S of distress/SOB or pain. Instructed on POC and to call for assistance PRN, will continue to monitor for changes Q1hr and PRN.
[2019-08-04 09:00] VITALS: BP 151/69
[2019-08-04] MEDS: NIFEdipine ER 30 MG TAB PO SCH (09:17)
--- NOTE | 2019-08-04 10:15 | NUR ---
FERNY ALDANA RE: CLARIFICATION FOR HOME HEALTH ORDER. AWAITING CALL BACK
--- NOTE | 2019-08-04 10:16 | NUR ---
MD Nathan ALDANA RETURNED [facility] WOULD LIKE [facility] FOR SAFETY EVALUATION. WILL UPDATE CHART
[2019-08-04 11:48] VITALS: BP 134/82
--- NOTE | 2019-08-04 12:12 | NUR ---
PAGED JANETTE RE: HOME HEALTH SAFETY EVALUATION AND CLARIFICATION ON IF PRIMARY RN SHOULD HOLD D/C OR THEY MAY GO HOME.
[2019-08-04 13:00] VITALS: BP 152/80
--- NOTE | 2019-08-04 13:40 | NUR ---
Nutrition Assessment Notes Please refer to link for full assessment notes Est energy needs: 9164-1778 kcals (30-35 kcals/kgBW) Est protein needs: 78-86 gms/day (1.1-1.2 gm/kgBW) Will continue to monitor and reassess prn Addendum: 08/04/19 at [address] Amended: Links added. Addendum: 08/04/19 at [address] Further Recommendation: Consider a Renal Standard diet in lieu of the current diet order per MD approval
--- NOTE | 2019-08-04 15:42 | NUR ---
Discharge instructions given as ordered. Encourage to follow up with PMD as instructed. All questions and concerns addressed. Patient verbalized understanding. Medication reconciliation form completed and copy given to patient. IV removed with catheter intact, pressure dressing applied,. Telemetry unit returned to ICU. Patient taken to vehicle via wheelchair with all personal belongings, accompanied by staff and family member. No distress noted at time of departure.
--- NOTE | 2019-08-04 16:13 | NUR ---
assessment Patient is a 64 year old male who is alert and oriented. Patients cognitive abilities are intact. Prior to admission patient lived home with his son Jaxon and functioned independently. Patient informed me he is able to care for his own ADLs. Per patient he will return home to his prior living arrangements post discharge and family will transport him home. Patient has a fww and a cane for home use. Patients PCP is Dr Jang. Patient is on service with [facility]. Patient will need a resumption order on discharge. I informed patient he has a right to speak to a social professionals regarding all care. I informed patient he has a right to participate in any and all discharge planning. Patient does not have a POA and advanced directive. I have offered patient information on POA and advanced directives. I informed the patient the advantages and benefits of having an Advanced Directive. Patient verbalized understanding and agreed to discharge plan. Addendum: 08/04/19 at 1613 by Shelly COHEN Amended: Links added.
--- NOTE | 2019-08-04 16:14 | NUR ---
Manager Marketing consult regarding resuming home Health. Pt was previously on service with [facility] and will be resuming with this service upon discharge. [facility] contacted and information faxed to [facility]. Information received and services to resume upon discharge. Will notify covering nurse and JESSICA II of the above.
== END 2019-08-04 15:42 | disposition home health service (06) | DRG 280 ==
LOC: ER 16:58 → EDBD 16:58 → TELE 16:59 → TELE-WESTW 08-01 00:40
PROVIDERS: ADMIT Hospitalist; ATTEND Internal Medicine
PROC: 4A023N7 Measurement of Cardiac Sampling and Pressure, Left Heart, Percutaneous Approach (ICD-10-PCS; 2019-08-02)
PROC: B211YZZ Fluoroscopy of Multiple Coronary Arteries using Other Contrast (ICD-10-PCS; 2019-08-02)
PROC: 4A033BC Measurement of Arterial Pressure, Coronary, Percutaneous Approach (ICD-10-PCS; 2019-08-02)
PROC: 5A1D70Z Performance of Urinary Filtration, Intermittent, Less than 6 Hours Per Day (ICD-10-PCS; principal; 2019-08-03)
DX: I21.4 Non-ST elevation (NSTEMI) myocardial infarction (principal); I50.43 Acute on chronic combined systolic (congestive) and diastolic (congestive) heart failure; N18.6 End stage renal disease; I13.2 Hypertensive heart and chronic kidney disease with heart failure and with stage 5 chronic kidney disease, or end stage renal disease; I16.9 Hypertensive crisis, unspecified; D63.1 Anemia in chronic kidney disease; E11.22 Type 2 diabetes mellitus with diabetic chronic kidney disease; E78.5 Hyperlipidemia, unspecified; F41.9 Anxiety disorder, unspecified; I25.110 Atherosclerotic heart disease of native coronary artery with unstable angina pectoris; I44.0 Atrioventricular block, first degree; Z82.3 Family history of stroke; Z82.49 Family history of ischemic heart disease and other diseases of the circulatory system; Z83.3 Family history of diabetes mellitus; Z95.5 Presence of coronary angioplasty implant and graft; Z99.2 Dependence on renal dialysis; Z90.49 Acquired absence of other specified parts of digestive tract
CPT/HCPCS: 36415; 71045; 80048; 80053; 82728; 82962; 83036; 83540; 83550; 83735; 83880; 84443; 84484; 85014; 85018; 85025; 85610; 85730; 93005; 96361; 96374; 96375; 99152; C1887; G0378; J0153; J0885; J1815; J2250; J2405; Q9967

== ENCOUNTER 2019-09-15 19:28 | Inpatient (IN) | payer MEDICARE, MEDICAID ==
[~2019-09-15] VITALS: Ht 167.6 cm; Wt 65.0 kg
[~2019-09-15 19:28] MED LIST changes: -PRA25T PO; +PRAM0.252 PO
[2019-09-15] MEDS ORDERED: cefTRIAXone 1GM/50ML D5W 50 ML IV ONE (20:45)
[2019-09-15 21:21] LABS: Basophils # (auto) 0.1 10 ^3/uL (0-0.2); Basophils % (auto) 0.7 % (0.0-2.0); Eosinophils # (auto) 0.1 10 ^3/uL (0-0.8); Eosinophils % (auto) 1.2 % (0.0-7.0); Hematocrit 35.5 % (41.0-53.0); Hemoglobin 11.5 g/dL (13.5-17.5); Lymphocytes # (auto) 0.9 10 ^3/uL (0.4-5.4); Lymphocytes % (auto) 11.5 % (10.0-50.0); Mean Corpuscular Hemoglobin 30.7 pg (28.0-32.0); Mean Corpuscular Hgb Conc. 32.2 g/dL (32.0-36.0); Mean Corpuscular Volume 95.2 fL (80.0-100.0); Monocytes # (auto) 0.8 10 ^3/uL (0-1.3); Monocytes % (auto) 10.5 % (0.0-12.0); Neutrophils # (auto) 6.1 10 ^3/uL (1.6-8.6); Neutrophils % (auto) 76.1 % (37.0-80.0); Nucleated Red Blood Cells % 0.2 %; Platelet Count (auto) 209 10^3/uL (140-450); Red Blood Cells 3.73 10^6/uL (4.5-5.90); Red Cell Distribution Width 18.3 % (11.8-14.3)
[2019-09-15 21:35] LABS: INR 1.13 (0.9-1.15); Partial Thromboplastin Time 30.6 sec (23.64-32.05)
[2019-09-15 21:40] LABS: Albumin 3.8 g/dL (3.4-5.0); Calcium 8.4 mg/dL (8.5-10.1)
[2019-09-15 21:45] LABS: Bilirubin, Total 0.7 mg/dL (0.2-1.0)
[2019-09-15 21:48] LABS: Potassium 6.8 mmol/L (3.5-5.1)
[2019-09-15] MEDS ORDERED: CALCIUM GLUC 4.65meq/50ml D5AE 50 ML IV ONE (22:00)
[2019-09-15] MEDS ORDERED: InsuLIN REG 1unit/0.01ml Soln (100units/ml) IV ONE (22:00)
[2019-09-15] MEDS ORDERED: ASPirin-EC 81 mg tab PO ONE ×2 (22:00→22:30)
[2019-09-15] MEDS ORDERED: DEXTROSE (50%) 50ML SYRG IV ONE (22:00)
[2019-09-15] MEDS ORDERED: ASPirin 81 mg TAB PO ONE (22:45)
[2019-09-15] MEDS ORDERED: levoFLOXacin 250MG 50 ML IV ONE (23:00)
[2019-09-15] MEDS ORDERED: ONDANSETRON HCL 4 MG/2 ML VIAL IV PRN (23:00)
[2019-09-15] MEDS ORDERED: NITROGLYCERIN 0.4 MG SL TAB SL PRN (23:00)
[2019-09-15] MEDS ORDERED: MORPHINE SULF INJ 2 MG/ML SYRINGE 1ML IV PRN ×2 (23:00)
[2019-09-16] VITALS (8 sets, daily range): BP systolic 146–179; BP diastolic 57–76
[2019-09-16] MEDS: hydrALAZINE HCL 20 MG/ML VL IV PRN ×2 (00:02→22:07)
--- NOTE | 2019-09-16 00:28 | NUR ---
Telemetry admit from ER EVAN EPSTEIN admitted to Telemetry unit after no SBAR received. Patient oriented to ERICH DUNBAR, RN primary RN, unit, room, bed, and unit policies regarding patient care and visiting hours. Patient now not on telemonitor per bioinformatics team member tushar from er wrong telebox was sent and she called for new telebox to be sent.awaiting telebox. Patient placed on bedside oxygen, weighed by bedscale and encouraged to call if they need something. All questions and concerns addressed, patient verbalized understanding.
--- NOTE | 2019-09-16 00:51 | NUR ---
telemonitor applied telebox number 4 running sr at 65bpm
--- NOTE | 2019-09-16 01:26 | NUR ---
per patient son will bring list of home medications later in the afternoon will endorse care to dayshift rn
--- NOTE | 2019-09-16 01:44 | NUR ---
mrsa swab sent
--- NOTE | 2019-09-16 02:00 | NUR ---
called md mendoza to inform him troponin trending up current troponin is 0.150. patient denies distress or pain. awaiting call back
--- NOTE | 2019-09-16 06:42 | NUR ---
patient is in bed denies sob/distress or pain. rr 15 bilateral chest rise and fall. bed in low position and call light within reach. bed alarm on.
[2019-09-16 06:55] LABS: Basophils # (auto) 0.1 10 ^3/uL (0-0.2); Basophils % (auto) 0.6 % (0.0-2.0); Eosinophils # (auto) 0.1 10 ^3/uL (0-0.8); Eosinophils % (auto) 1.2 % (0.0-7.0); Hematocrit 34.5 % (41.0-53.0); Hemoglobin 11.4 g/dL (13.5-17.5); Lymphocytes # (auto) 0.7 10 ^3/uL (0.4-5.4); Lymphocytes % (auto) 8.6 % (10.0-50.0); Mean Corpuscular Hemoglobin 31.3 pg (28.0-32.0); Mean Corpuscular Hgb Conc. 32.9 g/dL (32.0-36.0); Mean Corpuscular Volume 95.2 fL (80.0-100.0); Monocytes # (auto) 0.7 10 ^3/uL (0-1.3); Monocytes % (auto) 9.2 % (0.0-12.0); Neutrophils # (auto) 6.4 10 ^3/uL (1.6-8.6); Neutrophils % (auto) 80.4 % (37.0-80.0); Nucleated Red Blood Cells % 0.3 %; Platelet Count (auto) 181 10^3/uL (140-450); Red Blood Cells 3.62 10^6/uL (4.5-5.90); Red Cell Distribution Width 17.6 % (11.8-14.3)
[2019-09-16 07:16] LABS: Albumin 3.4 g/dL (3.4-5.0); Calcium 8.5 mg/dL (8.5-10.1)
[2019-09-16 07:20] LABS: BUN/Creatinine Ratio 9.2; Bilirubin, Total 0.6 mg/dL (0.2-1.0); Total Protein 7.3 g/dL (6.4-8.2)
--- NOTE | 2019-09-16 07:25 | NUR ---
Opening Shift Note Assumed care of patient, awake and alert, danish speaking. No S/S of distress/SOB or pain. Instructed on POC and to call for assist PRN, will continue to monitor for changes Q1hr and PRN.
--- NOTE | 2019-09-16 07:31 | NUR ---
report given to susan ricardo
[2019-09-16 07:35] LABS: Potassium 6.5 mmol/L (3.5-5.1)
[2019-09-16] MEDS ORDERED: SODIUM CHL 0.9% 1000 ML BAG XX ONE (08:00)
[2019-09-16] MEDS: cefTRIAXone 1GM/50ML D5W 50 ML IV SCH (12:16)
--- NOTE | 2019-09-16 19:21 | NUR ---
Opening Shift Note Assumed care of patient, awake and alert. No S/S of distress/SOB or pain. Instructed on POC and to call for assist PRN, will continue to monitor for changes Q1hr and PRN. bed in low position and call light within reach. dressing to dialysis access is clean dry and intact.
[2019-09-17 05:30] VITALS: BP 134/60
[2019-09-17 06:13] LABS: Basophils # (auto) 0.1 10 ^3/uL (0-0.2); Basophils % (auto) 1.1 % (0.0-2.0); Eosinophils # (auto) 0.2 10 ^3/uL (0-0.8); Eosinophils % (auto) 3.4 % (0.0-7.0); Hematocrit 33.4 % (41.0-53.0); Lymphocytes # (auto) 0.8 10 ^3/uL (0.4-5.4); Lymphocytes % (auto) 14.6 % (10.0-50.0); Mean Corpuscular Hgb Conc. 32.8 g/dL (32.0-36.0); Mean Corpuscular Volume 94.4 fL (80.0-100.0); Monocytes # (auto) 0.6 10 ^3/uL (0-1.3); Monocytes % (auto) 11.6 % (0.0-12.0); Neutrophils # (auto) 3.7 10 ^3/uL (1.6-8.6); Neutrophils % (auto) 69.3 % (37.0-80.0); Nucleated Red Blood Cells % 0.3 %; Platelet Count (auto) 175 10^3/uL (140-450); Red Blood Cells 3.54 10^6/uL (4.5-5.90); Red Cell Distribution Width 17.7 % (11.8-14.3); White Blood Cell 5.4 10^3/uL (4.4-10.8)
[2019-09-17 06:33] LABS: Calcium 7.7 mg/dL (8.5-10.1); Potassium 4.7 mmol/L (3.5-5.1)
[2019-09-17 06:35] LABS: Bilirubin, Total 0.7 mg/dL (0.2-1.0); Total Protein 6.7 g/dL (6.4-8.2)
--- NOTE | 2019-09-17 07:28 | NUR ---
Opening Shift Note Assumed care of patient, awake and alert, bruneian speaking. No S/S of distress/SOB or pain. Patient reports feeling much better after dialysis yesterday. Instructed on POC and to call for assist PRN, will continue to monitor for changes Q1hr and PRN.
--- NOTE | 2019-09-17 07:28 | NUR ---
report given to dayshift rn patient denies sob distress or pain.
[2019-09-17 08:30] VITALS: BP 168/73
[2019-09-17] MEDS: cefTRIAXone 1GM/50ML D5W 50 ML IV SCH (09:45)
[2019-09-17] MEDS ORDERED: SODIUM ZIRCONIUM CYCL 10 GM PAK PO SCH (10:00)
[2019-09-17 12:36] VITALS: BP 162/73
--- NOTE | 2019-09-17 14:18 | NUR ---
Patient was cleaned for discharge per Dr powell
[2019-09-17 14:23] VITALS: BP 165/77
--- NOTE | 2019-09-17 16:57 | NUR ---
Discharge instructions given as ordered. Encourage to follow up with PMD as instructed. All questions and concerns addressed. Patient verbalized understanding. Medication reconciliation form completed and copy given to patient. . IV removed with catheter intact, pressure dressing applied, f. Telemetry unit returned to ICU. Patient taken to vehicle via wheelchair with all personal belongings, accompanied by staff and family member. No distress noted at time of departure.
== END 2019-09-17 17:15 | disposition home or self-care (01) | DRG 291 ==
LOC: EDUNIT# 19:28 → EDBD 19:28 → ER 19:32 → TELE 19:33 → TELE-EAST 23:53
PROVIDERS: ADMIT Internal Medicine; ATTEND Internal Medicine
PROC: 5A1D70Z Performance of Urinary Filtration, Intermittent, Less than 6 Hours Per Day (ICD-10-PCS; principal; 2019-09-16)
DX: I13.2 Hypertensive heart and chronic kidney disease with heart failure and with stage 5 chronic kidney disease, or end stage renal disease (principal); J18.9 Pneumonia, unspecified organism; N18.6 End stage renal disease; I50.43 Acute on chronic combined systolic (congestive) and diastolic (congestive) heart failure; Z99.2 Dependence on renal dialysis; D63.8 Anemia in other chronic diseases classified elsewhere; I16.0 Hypertensive urgency; F32.9 Major depressive disorder, single episode, unspecified; K21.9 Gastro-esophageal reflux disease without esophagitis; E87.5 Hyperkalemia; I25.10 Atherosclerotic heart disease of native coronary artery without angina pectoris; E11.22 Type 2 diabetes mellitus with diabetic chronic kidney disease; F41.9 Anxiety disorder, unspecified; Z82.3 Family history of stroke; Z82.49 Family history of ischemic heart disease and other diseases of the circulatory system; Z83.3 Family history of diabetes mellitus; Z86.73 Personal history of transient ischemic attack (TIA), and cerebral infarction without residual deficits; Z91.19 Patient's noncompliance with other medical treatment and regimen; Z90.49 Acquired absence of other specified parts of digestive tract
CPT/HCPCS: 36415; 71045; 80053; 83605; 83735; 83880; 84484; 85025; 85610; 85730; 87040; 87081; 90935; 93005; 96365; 96367; 96375; G0378; J0610; J0696; J1642; J1815